=== PATIENT | female | born 1955 | race Caucasian/White ===

== ENCOUNTER 2016-06-30 09:57 | Inpatient (IN) | payer BC ==
--- NOTE | 2016-06-30 10:15 | PDOC ---
History of Present Illness - General Chief Complaint: Weakness Stated Complaint: BLE LEG NUMBNESS Time Seen by Provider: 06/30/16 10:15 History Source: Patient Exam Limitations: No Limitations - History of Present Illness Initial Comments: 61 yo F history COPD, HTN, HL, restless leg syndrome presents with weak and numb legs for past 2 weeks. Her symptoms initially started in her lower legs, then ascended. She is now unable to feel her legs, using a cane or wheelchair to get around. 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 No recent headaches, cp, SOB, fever. She has had a recent sore throat. No difficulty breathing or swallowing. Past History - Past Medical History Allergies/Adverse Reactions: Allergies Allergy/AdvReac Type Severity Reaction Status Date / Time ketorolac tromethamine AdvReac Severe Vomiting Verified 06/30/16 09:59 [From Toradol] lurasidone HCl [From Latuda] AdvReac Severe DEPRESSIVE Verified 06/30/16 09:59 oxycodone HCl [From Percocet] AdvReac Severe Vomiting Verified 06/30/16 09:59 propoxyphene napsylate AdvReac Severe Vomiting Verified 06/30/16 09:59 [From Darvocet-N] (severe) Home Medications: Ambulatory Orders Clonazepam [Klonopin] 1 mg PO HS 05/14/16 Lamotrigine 25 mg PO HS 05/14/16 Lamotrigine [Lamictal Xr] 200 mg PO HS 05/14/16 Losartan Potassium 50 mg PO HS 05/14/16 Rosuvastatin Calcium [Crestor] 5 mg PO HS 05/14/16 Albuterol Sulfate [Proair Respiclick] 90 mcg IH DAILY 06/30/16 Pramipexole Di-HCl [Mirapex] 0.25 mg PO HS 06/30/16 Quetiapine Fumarate [Seroquel -] 50 mg PO HS 06/30/16 Anemia: No Asthma: Yes Cancer: No Cardiac Disorders: No CVA: No COPD: No CHF: No Dementia: No Diabetes: No GI Disorders: No Disorders: No HTN: Yes Hypercholesterolemia: Yes Liver Disease: No Psychiatric Problems: Yes Suicide Attempt (Hx): No Seizures: No Thyroid Disease: No - Surgical History Abdominal Surgery: Yes (Repair of Adhesions) Appendectomy: No Cardiac Surgery: No Cholecystectomy: Yes (LAPAROSCOPIC CHOLECYSTECTOMY) Lung Surgery: No Neurologic Surgery: No Orthopedic Surgery: Yes (RIGHT KNEE ARTHROSCOPIC SURGERY) - Immunization History Td Vaccination: Yes Immunization Up to Date: No - Psycho/Social/Smoking Cessation Hx Anxiety: Yes Suicidal Ideation: No Smoking Status: No Smoking History: Never smoked Have you smoked in the past 12 months: No Number of Cigarettes Smoked Daily: 0 Hx Alcohol Use: No Drug/Substance Use Hx: No Substance Use Type: None Hx Substance Use Treatment: No Review of Systems - Review of Systems Able to Perform ROS?: Yes Comments:: GENERAL/CONSTITUTIONAL: No fever or chills. No weakness. HEAD, EYES, EARS, NOSE AND THROAT: No change in vision. No ear pain or discharge. +Sore throat. CARDIOVASCULAR: No chest pain or shortness of breath. RESPIRATORY: No cough, wheezing, or hemoptysis. GASTROINTESTINAL: No nausea, vomiting, diarrhea or constipation. GENITOURINARY: No dysuria, frequency, or change in urination. MUSCULOSKELETAL: No joint or muscle swelling or pain. No neck or back pain. SKIN: No rash NEUROLOGIC: No headache, vertigo, loss of consciousness. +Loss of strength/ sensation. ENDOCRINE: No increased thirst. No abnormal weight change. HEMATOLOGIC/LYMPHATIC: No anemia, easy bleeding, or history of blood clots. ALLERGIC/IMMUNOLOGIC: No hives or skin allergy. *Physical Exam - Physical Exam Comments: GENERAL: Awake, alert, and fully oriented. Appears anxious. HEAD: No signs of trauma EYES: PERRLA, EOMI, sclera anicteric, conjunctiva clear ENT: Auricles normal inspection, hearing grossly normal, nares patent, oropharynx clear without exudates. Moist mucosa NECK: Normal ROM, supple, no lymphadenopathy, JVD, or masses LUNGS: Breath sounds equal, clear to auscultation bilaterally. No wheezes, and no crackles HEART: Regular rate and rhythm, normal S1 and S2, no murmurs, rubs or gallops ABDOMEN: Soft, nontender, normoactive bowel sounds. No guarding, no rebound. No masses EXTREMITIES: Normal range of motion, no edema. No clubbing or cyanosis. No cords, erythema, or tenderness NEUROLOGICAL: Cranial nerves II through XII grossly intact. Normal speech. Gait is off-balance, clumsy (patient states she is unable to feel her legs). + Sensation absent to entire legs and abdomen, but present to lower chest and above. 3/5 strength to BLE. SKIN: Warm, Dry, normal turgor, no rashes or lesions noted. Procedures - Lumbar Puncture Indication: other CT Scan: Yes Betadine Prep: Yes Position: Sitting Site: L4-L51 Local Anesthesia: 1% Lidocaine with epi Volume(ml): 4 Lumbar Puncture Kit: Adult Needle Size(gauge): 20 Complications: Dry Tap Progress: 06/30/16 13:54 Unable to obtain CSF. Patient with very large body habitus, difficult anatomy. Heart Score/ECG Review - ECG Impressions Comment:: EKG read 16:27- NSR 79 bpm, Q waves III, aVF Medical Decision Making - Medical Decision Making 06/30/16 11:19 D/w Dr. Denise, orthotic practitioner for neurology. To have GBS a second time would be very unusual. However, recommended LP. I am awaiting CTH first, then will obtain LP. 06/30/16 14:18 Patient initially requesting transfer to [facility]. However, when I discussed with them, they stated that their hospital would likely not be the best option- they do not have an appropriate ICU for this transfer, and neuro is not in house. I discussed with patient again, and at this point she agrees to transfer to [facility]. As per Dr. Denise, discussed LP under fluoro with hospitalist. I have ordered the MRIs, also as discussed. 06/30/16 15:03 D/w hospitalist, will place on non-cardiac tele. Patient has had the symptoms for 2 weeks, slowly progressing. No airway involvement at this time. Will place on continuous pulse ox, but does not require ICU at this point. *DC/Admit/Observation/Transfer Diagnosis at time of Disposition: Weakness, Numbness - Discharge Dispostion Condition at time of disposition: Stable Admit: Yes
[2016-06-30] MEDS ORDERED: diazePAM CARPU-JECT 10 MG/2 ML DISP.SYRIN IVPUSH ONE ×2 (12:20→13:02)
[2016-06-30] MEDS ORDERED: diazePAM CARPU-JECT 10 MG/2 ML DISP.SYRIN ONE ×2 (12:28→13:13)
[2016-06-30] MEDS ORDERED: LIDOCAINE HCL 1%, 10 MG/ML (20ML VIAL) ONE (13:40)
[2016-06-30] MEDS ORDERED: LORAZEPAM CARPU-JECT 2 MG/ML DISP.SYRIN ONE (13:48)
--- NOTE | 2016-06-30 16:27 | CONSULT ---
Consult - text type - Consultation Consultation Note: Neurology History of Present Illness - General Chief Complaint: Weakness Stated Complaint: BLE LEG NUMBNESS Time Seen by Provider: 06/30/16 10:15 History Source: Patient Exam Limitations: No Limitations - History of Present Illness Initial Comments: 61 yo F history COPD, HTN, HL, restless leg syndrome presents with weak and numb legs for past 2 weeks. Her symptoms initially started in her lower legs, then ascended. She is now unable to feel her legs, using a cane or wheelchair to get around. 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 No recent headaches, cp, SOB, fever. She has had a recent sore throat. She is a patient of Dr. Olson who recommended further evaluation. No difficulty breathing or swallowing. She was seen by me in ER at [facility]. LP had been attempted and unsuccessful and patient did not want to repeat today. We discussed transfer to [place] for fluroscopic guided LP and the patient was initally not in agreement but eventually agreed to transfer. Past History - Past Medical History Allergies/Adverse Reactions: Allergies Allergy/AdvReac Type Severity Reaction Status Date / Time ketorolac tromethamine AdvReac Severe Vomiting Verified 06/30/16 09:59 [From Toradol] lurasidone HCl [From Latuda] AdvReac Severe DEPRESSIVE Verified 06/30/16 09:59 oxycodone HCl [From Percocet] AdvReac Severe Vomiting Verified 06/30/16 09:59 propoxyphene napsylate AdvReac Severe Vomiting Verified 06/30/16 09:59 [From Darvocet-N] (severe) Home Medications: Ambulatory Orders Clonazepam [Klonopin] 1 mg PO HS 05/14/16 Lamotrigine 25 mg PO HS 05/14/16 Lamotrigine [Lamictal Xr] 200 mg PO HS 05/14/16 Losartan Potassium 50 mg PO HS 05/14/16 Rosuvastatin Calcium [Crestor] 5 mg PO HS 05/14/16 Albuterol Sulfate [Proair Respiclick] 90 mcg IH DAILY 06/30/16 Pramipexole Di-HCl [Mirapex] 0.25 mg PO HS 06/30/16 Quetiapine Fumarate [Seroquel -] 50 mg PO HS 06/30/16 Anemia: No Asthma: Yes Cancer: No Cardiac Disorders: No CVA: No COPD: No CHF: No Dementia: No Diabetes: No GI Disorders: No Disorders: No HTN: Yes Hypercholesterolemia: Yes Liver Disease: No Psychiatric Problems: Yes Suicide Attempt (Hx): No Seizures: No Thyroid Disease: No - Surgical History Abdominal Surgery: Yes (Repair of Adhesions) Appendectomy: No Cardiac Surgery: No Cholecystectomy: Yes (LAPAROSCOPIC CHOLECYSTECTOMY) Lung Surgery: No Neurologic Surgery: No Orthopedic Surgery: Yes (RIGHT KNEE ARTHROSCOPIC SURGERY) - Immunization History Td Vaccination: Yes Immunization Up to Date: No - Psycho/Social/Smoking Cessation Hx Anxiety: Yes Suicidal Ideation: No Smoking Status: No Smoking History: Never smoked Have you smoked in the past 12 months: No Number of Cigarettes Smoked Daily: 0 Hx Alcohol Use: No Drug/Substance Use Hx: No Substance Use Type: None Hx Substance Use Treatment: No Review of Systems - Review of Systems Able to Perform ROS?: Yes Comments:: GENERAL/CONSTITUTIONAL: No fever or chills. No weakness. HEAD, EYES, EARS, NOSE AND THROAT: No change in vision. No ear pain or discharge. +Sore throat. CARDIOVASCULAR: No chest pain or shortness of breath. RESPIRATORY: No cough, wheezing, or hemoptysis. GASTROINTESTINAL: No nausea, vomiting, diarrhea or constipation. GENITOURINARY: No dysuria, frequency, or change in urination. MUSCULOSKELETAL: No joint or muscle swelling or pain. No neck or back pain. SKIN: No rash NEUROLOGIC: No headache, vertigo, loss of consciousness. +Loss of strength/ sensation. ENDOCRINE: No increased thirst. No abnormal weight change. HEMATOLOGIC/LYMPHATIC: No anemia, easy bleeding, or history of blood clots. ALLERGIC/IMMUNOLOGIC: No hives or skin allergy. *Physical Exam Vital Signs Temperature 98 F 06/30/16 09:58 Pulse Rate 66 06/30/16 14:54 Respiratory Rate 16 06/30/16 14:54 Blood Pressure 134/73 06/30/16 14:54 O2 Sat by Pulse Oximetry (%) 100 06/30/16 14:54 GENERAL: Awake, alert, and fully oriented. Appears anxious. HEAD: No signs of trauma EYES: PERRLA, EOMI, sclera anicteric, conjunctiva clear ENT: Auricles normal inspection, hearing grossly normal, nares patent, oropharynx clear without exudates. Moist mucosa NECK: Normal ROM, supple, no lymphadenopathy, JVD, or masses LUNGS: Breath sounds equal, clear to auscultation bilaterally. No wheezes, and no crackles HEART: Regular rate and rhythm, normal S1 and S2, no murmurs, rubs or gallops ABDOMEN: Soft, nontender, normoactive bowel sounds. No guarding, no rebound. No masses EXTREMITIES: Normal range of motion, no edema. No clubbing or cyanosis. No cords, erythema, or tenderness NEUROLOGICAL: Cranial nerves II through XII grossly intact. Normal speech. Gait is off-balance, clumsy (patient states she is unable to feel her legs). + Sensation absent to entire legs and abdomen, but present to lower chest and above. 3/5 strength to BLE. SKIN: Warm, Dry, normal turgor, no rashes or lesions noted. Imaging: CT head without acute changes Plan: 61 yo F history COPD, HTN, HL, restless leg syndrome presents with weak and numb legs for past 2 weeks. Her symptoms initially started in her lower legs, then ascended. She is now unable to feel her legs, using a cane or wheelchair to get around. 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 Also with psych history will rule out organic causes. LP had been attempted by ER and unsuccessful Transfer to [place] for fluroscopic guided LP Monitor bp, goal < 140/90 Recommend MRI brain and L spine Continue Klonipin for anxiety Pt/OT as tolerated Fall precautions
[2016-06-30] MEDS ORDERED: ALBUTEROL SO4 6.7 GM HFA INHALER IH PRN (21:55)
[2016-06-30] MEDS ORDERED: QUEtiapine FUMARATE 50 MG TABLET PO SCH (22:00)
[2016-06-30] MEDS ORDERED: PRAMIPEXOLE DIHYDROCHLORIDE 0.25 MG TABLET PO SCH (22:00)
[2016-06-30] MEDS ORDERED: ROSUVASTATIN CA 5 MG TABLET (FP) PO SCH (22:00)
[2016-06-30] MEDS ORDERED: lamoTRIgine 25 MG TABLET PO SCH (22:00)
[2016-06-30] MEDS ORDERED: LOSARTAN POTASSIUM 50 MG TABLET (FP) PO SCH (22:00)
[2016-06-30] MEDS ORDERED: PATIENT'S OWN MEDICATION (NON-FORMULARY) (Lamotrigine [Lamictal Xr] 200 MG) PO SCH (22:00)
--- NOTE | 2016-06-30 22:03 | HP ---
CHIEF COMPLAINT: leg weakness/numbness PCP: Wesley HISTORY OF PRESENT ILLNESS: This is a 61 year old female with a past medical history of HTN, HLD, diastolic dysfunction, RLS, asthma, Guillain Brigantine syndrome, bipolar disorder, anxiety who presented to her PCP for bilateral leg weakness and numbness for the past 2 weeks. Her PCP then referred her to the ED for further evaluation. She states the weakness initially started in her distal legs and then ascended. She is concerned for recurrence of Guillain Brigantine. The weakness is worse in the morning upon arising and then improves slightly during the day. She also reports a sore throat in the morning that resolves during the day. Pt denies any other symptoms or complaints. ER course was notable for: (1) CT head unremarkable (2) Unable to obtain LP Recent Travel: pt denies PAST MEDICAL HISTORY: HTN HLD diastolic dysfunction RLS asthma Guillain Brigantine syndrome bipolar disorder anxiety umbilical hernia PAST SURGICAL HISTORY: surgical adhesion repair lap cholecystectomy R knee arthroscopy hysterectomy L cataract sx x 3 Social History: Smoking: pt denies Alcohol: pt denies Drugs: pt denies Family History: mother age 70, brain tumor, PMH HTN, DM2, angina father age 72, [place] sister age 49, BrCA daughter , MVC Allergies ketorolac tromethamine [From Toradol] Adverse Reaction (Severe, Verified 09:59) Vomiting lurasidone HCl [From Latuda] Adverse Reaction (Severe, Verified 06/30/16 09:59) DEPRESSIVE oxycodone HCl [From Percocet] Adverse Reaction (Severe, Verified 06/30/16 09:59) Vomiting propoxyphene napsylate [From Darvocet-N] Adverse Reaction (Severe, Verified 09:59) Vomiting (severe) HOME MEDICATIONS: 3 Medication Instructions Recorded Clonazepam [Klonopin] 1 mg PO HS 05/14/16 Lamotrigine 25 mg PO HS 05/14/16 Lamotrigine [Lamictal Xr] 200 mg PO HS 05/14/16 Losartan Potassium 50 mg PO HS 05/14/16 Rosuvastatin Calcium [Crestor] 5 mg PO HS 05/14/16 Albuterol Sulfate [Proair 90 mcg IH DAILY 06/30/16 Respiclick] Pramipexole Di-HCl [Mirapex] 0.25 mg PO HS 06/30/16 Quetiapine Fumarate [Seroquel -] 50 mg PO HS 06/30/16 REVIEW OF SYSTEMS CONSTITUTIONAL: Absent: fever, chills, diaphoresis, generalized weakness, malaise, loss of appetite, weight change HEENT: Absent: rhinorrhea, nasal congestion, throat pain, throat swelling, difficulty swallowing, mouth swelling, ear pain, eye pain, visual changes CARDIOVASCULAR: Absent: chest pain, syncope, palpitations, irregular heart rate, lightheadedness , peripheral edema RESPIRATORY: Absent: cough, shortness of breath, dyspnea with exertion, orthopnea, wheezing, stridor, hemoptysis GASTROINTESTINAL: Absent: abdominal pain, abdominal distension, nausea, vomiting, diarrhea, constipation, melena, hematochezia GENITOURINARY: Absent: dysuria, frequency, urgency, hesitancy, hematuria, flank pain, genital pain MUSCULOSKELETAL: Absent: myalgia, arthralgia, joint swelling, back pain, neck pain SKIN: Absent: rash, itching, pallor HEMATOLOGIC/IMMUNOLOGIC: Absent: easy bleeding, easy bruising, lymphadenopathy, frequent infections ENDOCRINE: Absent: unexplained weight gain, unexplained weight loss, heat intolerance, cold intolerance NEUROLOGIC: Present: focal weakness or paresthesias Absent: headache, dizziness, unsteady gait, seizure, mental status changes, bladder or bowel incontinence PSYCHIATRIC: Absent: anxiety, depression, suicidal or homicidal ideation, hallucinations. PHYSICAL EXAMINATION Vital Signs - 24 hr 3 06/30/16 06/30/16 06/30/16 09:58 13:50 14:18 Temperature 98 F Pulse Rate 75 Pulse Rate [ 87 78 Right] Respiratory 16 16 16 Rate Blood Pressure 156/84 Blood Pressure 124/70 88/74 [Left Arm] O2 Sat by Pulse 99 100 99 Oximetry (%) 3 06/30/16 06/30/16 06/30/16 14:54 16:10 19:31 Temperature Pulse Rate Pulse Rate [ 66 72 76 Right] Respiratory 16 16 16 Rate Blood Pressure Blood Pressure 134/73 139/77 151/80 [Left Arm] O2 Sat by Pulse 100 100 97 Oximetry (%) 3 06/30/16 19:55 Temperature 98.2 F Pulse Rate 74 Pulse Rate [ Right] Respiratory 14 Rate Blood Pressure 151/80 Blood Pressure [Left Arm] O2 Sat by Pulse Oximetry (%) GENERAL: Awake, alert, and fully oriented, in no acute distress. HEAD: Normal with no signs of trauma. EYES: Pupils equal, round and reactive to light, extraocular movements intact, sclera anicteric, conjunctiva clear. No lid lag. normal posterior pharynx lift. EARS, NOSE, THROAT: Ears normal, nares patent, oropharynx clear without exudates. Moist mucous membranes. NECK: Normal range of motion, supple without lymphadenopathy, JVD, or masses. LUNGS: Breath sounds equal, clear to auscultation bilaterally. No wheezes, and no crackles. No accessory muscle use. HEART: Regular rate and rhythm, normal S1 and S2 without murmur, rub or gallop. ABDOMEN: Soft, nontender, not distended, normoactive bowel sounds, no guarding, no rebound, no masses. No hepatomegaly or splenomegaly. MUSCULOSKELETAL: Normal range of motion at all joints. No bony deformities or tenderness. No CVA tenderness. UPPER EXTREMITIES: 2+ pulses, warm, well-perfused. No cyanosis. No clubbing. Cap refill <2 seconds. No peripheral edema. 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 No calf tenderness. No peripheral edema. absent light touch sensation from toes to lower third of thighs. muscle strength: dorsiflexion 4/5, plantar flexion 2/5, leg raise 3/5 NEUROLOGICAL: Cranial nerves II-XII intact. Normal speech. Normal gait. PSYCHIATRIC: Cooperative. Good eye contact. Appropriate mood and affect. SKIN: Warm, dry, normal turgor, no rashes or lesions noted. Laboratory Results reviewed CT head: Impression: No significant interval change or acute intracranial pathology is identified. ASSESSMENT/PLAN: 61yF with a past medical history of HTN, HLD, diastolic dysfunction, RLS, asthma , Guillain Brigantine syndrome, bipolar disorder, anxiety who presented to the ED with bilateral lower extremity weakness and numbness. She is being admitted for further evaluation. Bilateral leg numbness/weakness - unable to obtain LP in ED. To be done tomorrow under fluoro - MRI head, thoracic and lumbar spine done, results pending - neurology consult appreciated HTN - BP slightly elevated. Give home medications, if persistently elevated, increase losartan to 100mg HLD - cont home meds RLS - cont home meds Bipolar disorder/anxietly - cont home meds DVT PPX - moderate risk given limited mobility, start heparin 5000u SC TID FEN - tolerating po fluids - lytes in am - low sodium diet Dispo: Pt currently requires inpatient care. Visit type - Emergency Visit Emergency Visit: Yes ED Registration Date: 06/30/16 Care time: The patient presented to the Emergency Department on the above date and was hospitalized for further evaluation of their emergent condition. - New Patient This patient is new to me today: Yes Date on this admission: 06/30/16 - Critical Care Critical Care patient: No
[2016-06-30] MEDS ORDERED: clonazePAM 0.5 MG TABLET PO SCH (22:15)
[2016-06-30] MEDS ORDERED: PT OWN MED DRAWER 7, Y5N ONE (22:46)
[2016-07-01 00:43] VITALS: BMI 37.4
[2016-07-01] MEDS: HEPARIN NA (PORCINE) 5,000 UNITS/ML 1ML VIAL SQ SCH ×2 (05:37→17:07)
[2016-07-01 07:17] LABS: BASOPHIL 0.6 % (0-2.0); EOSINOPHIL 3.6 % (0-4.5); MCH 28.4 pg (25.7-33.7); MCHC 33.4 g/dl (32.0-36.0); MEAN CELL VOLUME 84.9 fl (80-96); NEUTROPHILS 66.6 % (42.8-82.8); PLATELET COUNT 243 K/MM3 (134-434); RDW 14.2 % (11.6-15.6); WHITE BLOOD COUNT 9.5 K/mm3 (4.0-10.0)
[2016-07-01 07:52] LABS: ALBUMIN 3.6 g/dl (3.4-5.0); ALK PHOS 136 U/L (45-117); ANION GAP 11 (8-16); BILIRUBIN,TOTAL 0.4 mg/dL (0.2-1.0); CALCIUM 8.6 mg/dL (8.5-10.1); CO2 26 mmol/L (21-32); CREATININE 0.7 mg/dL (0.55-1.02); GLUCOSE,RANDOM 108 mg/dL (74-106); MAGNESIUM 2.2 mg/dL (1.8-2.4); PHOSPHOROUS 4.2 mg/dL (2.5-4.9); SGOT/AST 13 U/L (15-37); SGPT/ALT 22 U/L (12-78); TOT PROT 6.6 g/dl (6.4-8.2)
--- NOTE | 2016-07-01 09:24 | PN ---
Teaching Attending Note Name of Resident: Nova Johnson ATTENDING PHYSICIAN STATEMENT I saw and evaluated the patient. I reviewed the resident's note and discussed the case with the resident. I agree with the resident's findings and plan as documented. SUBJECTIVE: Comfortable with no acute distress, no shortness breath, no nausea or vomiting, no fever or chills. OBJECTIVE: Vital Signs Temperature 97.8 F 07/01/16 06:00 Pulse Rate 82 07/01/16 06:00 Respiratory Rate 18 07/01/16 06:00 Blood Pressure 126/64 07/01/16 06:00 O2 Sat by Pulse Oximetry (%) 97 06/30/16 21:20 GENERAL: The patient is awake, alert, and fully oriented, in no acute distress. HEAD: Normal with no signs of trauma. EYES: extraocular movements intact, sclera anicteric, conjunctiva clear. ENT: oropharynx clear without exudates, moist mucous membranes. NECK: Trachea midline, supple. LUNGS: Breath sounds equal, clear to auscultation bilaterally, no wheezes, no crackles, no accessory muscle use. HEART: Regular rate and rhythm, S1, S2 without murmur, rub or gallop. ABDOMEN: Obese, soft, nontender, nondistended, normoactive bowel sounds, no guarding, no rebound, no masses. EXTREMITIES: 2+ pulses, warm, no edema. NEUROLOGICAL: Cranial nerves II through XII grossly intact. Normal speech, face symmetric, no tongue deviation. Motor; UE:5/5, LE: decreased Sensation to light touch below the knee B/L. PSYCH: Normal mood, normal affect. SKIN: Warm, dry, normal turgor, no rashes. CBCD WBC 9.5 K/mm3 (4.0-10.0) 07/01/16 05:35 RBC 4.68 M/mm3 (3.60-5.2) 07/01/16 05:35 Hgb 13.3 GM/dL (10.7-15.3) 07/01/16 05:35 Hct 39.7 % (32.4-45.2) 07/01/16 05:35 MCV 84.9 fl (80-96) 07/01/16 05:35 MCHC 33.4 g/dl (32.0-36.0) 07/01/16 05:35 RDW 14.2 % (11.6-15.6) 07/01/16 05:35 Plt Count 243 K/MM3 (134-434) 07/01/16 05:35 MPV 8.0 fl (7.5-11.1) 07/01/16 05:35 CMP Sodium 142 mmol/L (136-145) 07/01/16 05:35 Potassium 4.2 mmol/L (3.5-5.1) 07/01/16 05:35 Chloride 105 mmol/L (98-107) 07/01/16 05:35 Carbon Dioxide 26 mmol/L (21-32) 07/01/16 05:35 Anion Gap 11 (8-16) 07/01/16 05:35 BUN 14 mg/dL (7-18) 07/01/16 05:35 Creatinine 0.7 mg/dL (0.55-1.02) 07/01/16 05:35 Creat Clearance w eGFR > 60 (>60) 07/01/16 05:35 Random Glucose 108 mg/dL (74-106) H 07/01/16 05:35 Calcium 8.6 mg/dL (8.5-10.1) 07/01/16 05:35 Total Bilirubin 0.4 mg/dL (0.2-1.0) 07/01/16 05:35 AST 13 U/L (15-37) L 07/01/16 05:35 ALT 22 U/L (12-78) 07/01/16 05:35 Alkaline Phosphatase 136 U/L (45-117) H 07/01/16 05:35 Total Protein 6.6 g/dl (6.4-8.2) 07/01/16 05:35 Albumin 3.6 g/dl (3.4-5.0) 07/01/16 05:35 Current Medications Generic Name Dose Route Start Last Admin Trade Name Freq PRN Reason Stop Dose Admin Albuterol Sulfate 2 puff 06/30/16 21:55 Ventolin Hfa Inhaler - IH Q6H PRN SHORT OF BREATH/WHEEZING Clonazepam 1 mg 06/30/16 22:15 06/30/16 22:48 Klonopin - PO Not Given HS OTONIEL Heparin Sodium (Porcine) 5,000 unit 07/01/16 06:00 07/01/16 05:37 Heparin - SQ 5,000 unit TID OTONIEL Administration Lamotrigine 25 mg 06/30/16 22:00 06/30/16 22:47 Lamictal - PO Not Given HS OTONIEL Losartan Potassium 50 mg 06/30/16 22:00 06/30/16 22:47 Cozaar - PO Not Given HS [facility] Non-Formulary Medication 200 mg 06/30/16 22:00 Lamotrigine [Lamictal Xr] PO HS OTONIEL Pramipexole Dihydrochloride 0.25 mg 06/30/16 22:00 06/30/16 22:47 Mirapex - PO Not Given HS [facility] Quetiapine Fumarate 50 mg 06/30/16 22:00 06/30/16 22:47 Seroquel - PO Not Given HS OTONIEL Rosuvastatin Calcium 5 mg 06/30/16 22:00 06/30/16 22:47 Crestor - PO Not Given HS [facility] Home Medications Medication Instructions Recorded Clonazepam [Klonopin] 1 mg PO HS 05/14/16 Lamotrigine 25 mg PO HS 05/14/16 Lamotrigine [Lamictal Xr] 200 mg PO HS 05/14/16 Losartan Potassium 50 mg PO HS 05/14/16 Rosuvastatin Calcium [Crestor] 5 mg PO HS 05/14/16 Albuterol Sulfate [Proair 90 mcg IH DAILY 06/30/16 Respiclick] Pramipexole Di-HCl [Mirapex] 0.25 mg PO HS 06/30/16 Quetiapine Fumarate [Seroquel -] 50 mg PO HS 06/30/16 CT head without acute changes ASSESSMENT AND PLAN: 61 yo F history COPD, HTN, HL, with Hx of Guillain-Ross in the past, restless leg syndrome presents with weak and numb legs for past 2 weeks. # Bilateral leg numbness/weakness s/p physical therapist ,patient needs a walker , No need for LP as per since the patient is ambulatory this morning and much improved. MRI head, thoracic and lumbar spine done, results negative , as per neurologist patient can go home. Patient refusing a walker but will give an Rx for a walker. doubt exacerbation of Guillain-Ross # Possibly conversion disorder # HTN improved continue home meds. goal < 140/90 # HLD cont home meds # RLS cont home meds # Bipolar disorder/anxietly cont home meds Continue Klonipin for anxiety discharge patient home
--- NOTE | 2016-07-01 09:43 | PN ---
Progress Note (short form) - Note Progress Note: Neurology History of Present Illness 61 yo F history COPD, HTN, HL, restless leg syndrome presents with weak and numb legs for past 2 weeks. Her symptoms initially started in her lower legs, then ascended. She is now unable to feel her legs, using a cane or wheelchair to get around. 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 No recent headaches, cp, SOB, fever. She has had a recent sore throat. She is a patient of Dr. Olson who recommended further evaluation. No difficulty breathing or swallowing. She was seen by me in ER at [facility]. LP had been attempted and unsuccessful. She was transfer to [place] for fluroscopic guided LP and the patient was initally not in agreement but eventually agreed to transfer. THIS MORNING, patient seen ambulated and closing window shades and without significant lower extremity weakness. She was bearing weight and did not fall or have slowness in movement. I do not believe this is a case of Guillan [place] and more likely some spinal nerve irritation, therefore MRI would be more useful and LP would not be indicated at this time. Will discontinue. Was suprised to see patient ambulated near window. Active Medications Generic Name Dose Route Start Last Admin Trade Name Freq PRN Reason Stop Dose Admin Albuterol Sulfate 2 puff 06/30/16 21:55 Ventolin Hfa Inhaler - IH Q6H PRN SHORT OF BREATH/WHEEZING Clonazepam 1 mg 06/30/16 22:15 06/30/16 22:48 Klonopin - PO Not Given HS OTONIEL Heparin Sodium (Porcine) 5,000 unit 07/01/16 06:00 07/01/16 05:37 Heparin - SQ 5,000 unit TID OTONIEL Administration Lamotrigine 25 mg 06/30/16 22:00 06/30/16 22:47 Lamictal - PO Not Given HS OTONIEL Losartan Potassium 50 mg 06/30/16 22:00 06/30/16 22:47 Cozaar - PO Not Given HS OTONIEL Non-Formulary Medication 200 mg 06/30/16 22:00 Lamotrigine [Lamictal Xr] PO HS OTONIEL Pramipexole Dihydrochloride 0.25 mg 06/30/16 22:00 06/30/16 22:47 Mirapex - PO Not Given HS OTONIEL Quetiapine Fumarate 50 mg 06/30/16 22:00 06/30/16 22:47 Seroquel - PO Not Given HS OTONIEL Rosuvastatin Calcium 5 mg 06/30/16 22:00 06/30/16 22:47 Crestor - PO Not Given HS OTONIEL *Physical Exam Vital Signs Vital Signs Temperature 97.8 F 07/01/16 06:00 Pulse Rate 82 07/01/16 06:00 Respiratory Rate 18 07/01/16 06:00 Blood Pressure 126/64 07/01/16 06:00 O2 Sat by Pulse Oximetry (%) 97 06/30/16 21:20 GENERAL: Awake, alert, and fully oriented. Appears anxious. HEAD: No signs of trauma EYES: PERRLA, EOMI, sclera anicteric, conjunctiva clear ENT: Auricles normal inspection, hearing grossly normal, nares patent, oropharynx clear without exudates. Moist mucosa NECK: Normal ROM, supple, no lymphadenopathy, JVD, or masses LUNGS: Breath sounds equal, clear to auscultation bilaterally. No wheezes, and no crackles HEART: Regular rate and rhythm, normal S1 and S2, no murmurs, rubs or gallops ABDOMEN: Soft, nontender, normoactive bowel sounds. No guarding, no rebound. No masses EXTREMITIES: Normal range of motion, no edema. No clubbing or cyanosis. No cords, erythema, or tenderness NEUROLOGICAL: Cranial nerves II through XII grossly intact. Normal speech. Gait is antalgic, slightly clumsy but bearing wieght 4/5 strength to BLE. SKIN: Warm, Dry, normal turgor, no rashes or lesions noted. Imaging: CT head without acute changes Plan: 61 yo F history COPD, HTN, HL, restless leg syndrome presents with weak and numb legs for past 2 weeks. 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 Patient ambulatory this morning and much improved, closing blinds of the window and bearing weight without difficulty LP not indicated as patient without significant weakness Monitor bp, goal < 140/90 Recommend MRI brain and L spine still Continue Klonipin for anxiety Pt/OT as tolerated Fall precautions Possibly conversion disorder
[2016-07-01 09:59] LABS: INR 1.06 (0.82-1.09); PROTHROMBIN TIME (PATIENT) 11.7 SEC (9.98-11.88)
--- NOTE | 2016-07-01 12:11 | EKG ---
Test Reason : Blood Pressure : / mmHG Vent. Rate : 079 BPM Atrial Rate : 079 BPM P-R Int : 178 ms QRS Dur : 094 ms QT Int : 364 ms P-R-T Axes : 059 004 082 degrees QTc Int : 417 ms NORMAL SINUS RHYTHM INFERIOR INFARCT , AGE UNDETERMINED NONSPECIFIC ST AND T WAVE ABNORMALITY ABNORMAL ECG WHEN COMPARED WITH ECG OF 02-NOV-2002 15:26, NONSPECIFIC ST AND T WAVE ABNORMALITY are now present Confirmed by LEON QUINTERO MD ([id number]) on 07/01/2016 12:11:05 PM Referred By: MD PANIAGUA Confirmed By:LEON QUINTERO MD
[2016-07-01 15:55] VITALS: BP 132/82; PULSE 89; TEMP 98.5
--- NOTE | 2016-07-01 15:59 | DS ---
Physical Exam: SUBJECTIVE: Patient seen and examined. She is complaining of weakness and numbness in lower extremities. She denies headache, vision problems, balance problems, chest pain, SOB, fever. OBJECTIVE: Vital Signs Period Temp Pulse Resp BP Sys/Jasso Pulse Ox Last 24 Hr 97.5 F-98.5 F 75-89 18-18 121-152/58-102 97-97 PHYSICAL EXAM GENERAL: The patient is awake, alert, and fully oriented, in no acute distress. HEAD: Normal with no signs of trauma. EYES: extraocular movements intact, sclera anicteric, conjunctiva clear. ENT: oropharynx clear without exudates, moist mucous membranes. NECK: Trachea midline, supple. LUNGS: Breath sounds equal, clear to auscultation bilaterally, no wheezes, no crackles, no accessory muscle use. HEART: Regular rate and rhythm, S1, S2 without murmur, rub or gallop. ABDOMEN: Obese, soft, nontender, nondistended, normoactive bowel sounds, no guarding, no rebound, no masses. EXTREMITIES: 2+ pulses, warm, no edema. NEUROLOGICAL: Cranial nerves II through XII grossly intact. Normal speech, face symmetric, no tongue deviation. Motor; UE:5/5, LE: 4/5 Sensation to light touch not present below the knee B/L. DTRs knee intact. PSYCH: Normal mood, normal affect. SKIN: Warm, dry, normal turgor, no rashes. LABS Laboratory Results - last 24 hr 07/01/16 07/01/16 07/01/16 05:35 05:35 09:25 WBC 9.5 RBC 4.68 Hgb 13.3 Hct 39.7 MCV 84.9 MCHC 33.4 RDW 14.2 Plt Count 243 MPV 8.0 Neutrophils % 66.6 Lymphocytes % 22.8 D Monocytes % 6.4 Eosinophils % 3.6 Basophils % 0.6 INR 1.06 Sodium 142 Potassium 4.2 Chloride 105 Carbon Dioxide 26 Anion Gap 11 BUN 14 Creatinine 0.7 Creat Clearance w eGFR > 60 Random Glucose 108 H Calcium 8.6 Phosphorus 4.2 Magnesium 2.2 Total Bilirubin 0.4 AST 13 L ALT 22 Alkaline Phosphatase 136 H Total Protein 6.6 Albumin 3.6 HOSPITAL COURSE: Date of Admission:06/30/16 Date of Discharge: 07/01/16 Minutes to complete discharge: 50 Discharge Summary Reason For Visit: WEAKNESS Current Active Problems Numbness (Acute) Weakness (Acute) Hospital Course: This is a 61 year old female with a past medical history of HTN, HLD, diastolic dysfunction, RLS, asthma, Guillain [place] syndrome, bipolar disorder, anxiety who presented to her PCP for bilateral leg weakness and numbness for the past 2- 3 weeks. Her PCP then referred her to the ED for further evaluation. She states the weakness initially started in her distal legs and then ascended. She is concerned for recurrence of Guillain [place]. The weakness is worse in the morning upon arising and then improves slightly during the day. She also reports a sore throat in the morning that resolves during the day. Pt denies any other symptoms or complaints. Hospital course: She was seen ER at [place]. LP had been attempted and unsuccessful. She was transfer to [place] for fluroscopic guided LP and the patient was initally not in agreement but eventually agreed to transfer. Consulted Neurologist. He assessed the pt is the hospital again and didn't recommend LP. MRI brain without contrast showed no acute changes. MRI T spine was normal. MRI L spine with spinal stenosis of L5/S1 likely etiology for patient's gait dysfunction. He recommended outpatient therapy, fall precautions;walker prescription given. Condition: Stable - Instructions Diet, Activity, Other Instructions: Please see your primary care physician and Neurologist in a week. If you have weakness, numbness, dizziness, lightheadedness, chest pain come to emergency room as soon as possible. Referrals: Aj Olson MD [Staff Physician] - David Denise MD [Staff Physician] - Disposition: HOME - Home Medications Comprehensive Discharge Medication List: Ambulatory Orders Clonazepam [Klonopin] 1 mg PO HS 05/14/16 Lamotrigine 25 mg PO HS 05/14/16 Lamotrigine [Lamictal Xr] 200 mg PO HS 05/14/16 Losartan Potassium 50 mg PO HS 05/14/16 Rosuvastatin Calcium [Crestor] 5 mg PO HS 05/14/16 Albuterol Sulfate [Proair Respiclick] 90 mcg IH DAILY 06/30/16 Pramipexole Di-HCl [Mirapex] 0.25 mg PO HS 06/30/16 Quetiapine Fumarate [Seroquel -] 50 mg PO HS 06/30/16 Problem List - Problems (1) Numbness Code(s): R20.0 - ANESTHESIA OF SKIN (2) Weakness Code(s): R53.1 - WEAKNESS (3) RLS (restless legs syndrome) Code(s): G25.81 - RESTLESS LEGS SYNDROME (4) HTN (hypertension) Code(s): I10 - ESSENTIAL (PRIMARY) HYPERTENSION This patient is new to me today: Yes Date on this admission: 07/01/16 Emergency Visit: Yes ED Registration Date: 06/30/16 Care time: The patient presented to the Emergency Department on the above date and was hospitalized for further evaluation of their emergent condition. Critical Care patient: No - Discharge Referral Referred to [facility] Yes Physician Referral: Aj Olson MD (Int Med)
== END 2016-07-01 17:50 | disposition home or self-care (01) | DRG 552 ==
LOC: FER 09:57 → J4S 21:19
PROVIDERS: ADMIT Internal Medicine; ATTEND Internal Medicine
PROC: 009U3ZX Drainage of Spinal Canal, Percutaneous Approach, Diagnostic (ICD-10-PCS; principal; 2016-06-30)
DX: M48.07 Spinal stenosis, lumbosacral region (principal); G61.0 Guillain-Barre syndrome; F31.89 Other bipolar disorder; J44.9 Chronic obstructive pulmonary disease, unspecified; I10 Essential (primary) hypertension; E78.5 Hyperlipidemia, unspecified; G25.81 Restless legs syndrome; F41.8 Other specified anxiety disorders; J45.909 Unspecified asthma, uncomplicated; K42.9 Umbilical hernia without obstruction or gangrene; R26.89 Other abnormalities of gait and mobility
CPT/HCPCS: 36415; 70450-TC; 70551-TC; 72146-TC; 72148-TC; 80053; 83735; 84100; 85025; 85610; 93005; 97116-GP; 97161-GP; 99285-25; J1644

== ENCOUNTER 2017-02-07 08:09 | Emergency (ER) | payer BC ==
[2017-02-07 08:14] VITALS: BP 156/86; PULSE 83; TEMP 98.5; BMI 35.9
--- NOTE | 2017-02-07 09:04 | PDOC ---
History of Present Illness - General Chief Complaint: Cold Symptoms Stated Complaint: COUGH Time Seen by Provider: 02/07/17 08:23 - History of Present Illness Initial Comments: 02/07/17 09:03 61 F with h/o HTN, asthma, HLD, presenting with 1 week of cough. Pt denies F/C. Denies CP/SOB. States that she has had non-productive cough. Pt has been taking robitussin with no relief. Denies h/o smoking or recent travel. No known sick contacts. Pt states it does not feel like her asthma exacerbations. However, she used her albuterol pump with some relief of her cough. Pt denies leg swelling, denies immobilization. NO h/o DVT/PE. Not on exogenous estrogens. Past History - Past Medical History Allergies/Adverse Reactions: Allergies Allergy/AdvReac Type Severity Reaction Status Date / Time ketorolac tromethamine AdvReac Severe Vomiting Verified 02/07/17 08:10 [From Toradol] lurasidone HCl [From Latuda] AdvReac Severe DEPRESSIVE Verified 02/07/17 08:10 oxycodone HCl [From Percocet] AdvReac Severe Vomiting Verified 02/07/17 08:10 propoxyphene napsylate AdvReac Severe Vomiting Verified 02/07/17 08:10 [From Darvocet-N] (severe) Home Medications: Ambulatory Orders Clonazepam [Klonopin] 3 mg PO HS 05/14/16 Albuterol Sulfate [Proair Respiclick] 90 mcg IH DAILY 06/30/16 Clonidine HCl 0.1 mg PO DAILY tablet 12/10/16 Azithromycin 250 mg PO DAILY #4 tablet 02/07/17 Anemia: No Asthma: Yes Cancer: No Cardiac Disorders: No CVA: No COPD: No CHF: No Dementia: No Diabetes: No GI Disorders: No Disorders: No HTN: Yes (HTN, diastollic dysfunction) Hypercholesterolemia: Yes Liver Disease: No Psychiatric Problems: Yes Seizures: No Thyroid Disease: No - Surgical History Abdominal Surgery: Yes (Repair of Adhesions) Appendectomy: No Cardiac Surgery: No Cholecystectomy: Yes (LAPAROSCOPIC CHOLECYSTECTOMY) Lung Surgery: No Neurologic Surgery: No Orthopedic Surgery: Yes (RIGHT KNEE ARTHROSCOPIC SURGERY) - Immunization History Td Vaccination: Yes Immunization Up to Date: No - Suicide/Smoking/Psychosocial Hx Smoking Status: No Smoking History: Never smoked Have you smoked in the past 12 months: No Number of Cigarettes Smoked Daily: 0 Hx Alcohol Use: No Drug/Substance Use Hx: No Substance Use Type: None Hx Substance Use Treatment: No Review of Systems - Review of Systems Comments:: 02/07/17 10:28 "GENERAL/CONSTITUTIONAL: No fever or chills. No weakness. HEAD, EYES, EARS, NOSE AND THROAT: No change in vision. No ear pain or discharge. No sore throat. CARDIOVASCULAR: No chest pain or shortness of breath. RESPIRATORY: + cough, no wheezing, or hemoptysis. GASTROINTESTINAL: No nausea, vomiting, diarrhea or constipation. GENITOURINARY: No dysuria, frequency, or change in urination. MUSCULOSKELETAL: No joint or muscle swelling or pain. No neck or back pain. SKIN: No rash NEUROLOGIC: No headache, vertigo, loss of consciousness, or change in strength/ sensation. ENDOCRINE: No increased thirst. No abnormal weight change. HEMATOLOGIC/LYMPHATIC: No anemia, easy bleeding, or history of blood clots. ALLERGIC/IMMUNOLOGIC: No hives or skin allergy. " *Physical Exam - Vital Signs Last Vital Signs Temp Pulse Resp BP Pulse Ox 98.5 F 83 20 156/86 98 02/07/17 08:10 02/07/17 08:10 02/07/17 08:10 02/07/17 08:10 02/07/17 08:10 - Physical Exam Comments: 02/07/17 10:28 "GENERAL: Awake, alert, and fully oriented, in no acute distress HEAD: No signs of trauma EYES: PERRLA, EOMI, sclera anicteric, conjunctiva clear ENT: Auricles normal inspection, hearing grossly normal, nares patent, oropharynx clear without exudates. Moist mucosa NECK: Nontender, no stepoffs, Normal ROM, supple, no lymphadenopathy, JVD, or masses LUNGS: Breath sounds equal, clear to auscultation bilaterally. No wheezes, and no crackles HEART: Regular rate and rhythm, normal S1 and S2, no murmurs, rubs or gallops ABDOMEN: Soft, nontender, normoactive bowel sounds. No guarding, no rebound. No masses EXTREMITIES: Normal range of motion, no edema. No clubbing or cyanosis. No cords, erythema, or tenderness NEUROLOGICAL: Cranial nerves II through XII intact. 5/5 strength and sensation in all extremities, Normal speech, normal gait SKIN: Warm, Dry, normal turgor, no rashes or lesions noted. " ED Treatment Course - LABORATORY CBC & Chemistry Diagram: 02/07/17 07:42 Medical Decision Making - Medical Decision Making 02/07/17 10:28 61 F with cough x 1 week, no other infectious symptoms. Likely viral URI vs bronchitis. Will r/o PNA with CXR. Pt with normal vitals, no clinical signs of DVT, making PE unlikely. No signs of volume overload or heart failure on exam. Consider asthma because of relief of cough with albuterol pump. However, exam without any wheezes. - Labs - CXR - Trial of nebulizers 02/07/17 13:46 Pt reassessed s/p nebs. Reports cough has improved significantly. CXR negative. Labs unremarkable. Pt well appearing. Clinically stable for DC. *DC/Admit/Observation/Transfer Diagnosis at time of Disposition: Cough - Discharge Dispostion Disposition: HOME Condition at time of disposition: Stable - Prescriptions Prescriptions: Azithromycin 250 mg PO DAILY #4 tablet - Referrals Referrals: Aj Olson MD [Primary Care Provider] - - Patient Instructions Printed Discharge Instructions: DI for Acute Bronchitis Additional Instructions: Continue using your albuterol pump every 4 hours as needed for coughing. Follow up with Dr. Olson this week for a re-evaluation. If you experience worsening cough, chest pain, shortness of breath, fevers, or any other concerning symptoms, return to the ER immediately. - Attestations Physician Attestion: 02/07/17 10:30 I, Dr. Javad Johns MD, attest that this document has been prepared under my direction and personally reviewed by me in its entirety. I further attest, that it accurately reflects all work, treatment, procedures and medical decision -making performed by me.
[2017-02-07] MEDS ORDERED: ALBUTEROL SO4 2.5/IPRATROPIUM 0.5 INH SOL 3 ML VIAL.NEB. NEB ONE ×2 (09:23)
[2017-02-07 09:44] LABS: CPK 92 IU/L (26-192)
[2017-02-07 09:52] LABS: TROPONIN I (DFP) < 0.03 ng/ml (0.03-0.50)
[2017-02-07] MEDS ORDERED: AZITHROMYCIN 500 MG TABLET PO ONE (10:30)
== END 2017-02-07 10:41 | disposition home or self-care (01) ==
LOC: FER 08:09
PROC: 3E0F7GC Introduction of Other Therapeutic Substance into Respiratory Tract, Via Natural or Artificial Opening (ICD-10-PCS; principal; 2017-02-07)
DX: R05 Cough (principal); E78.5 Hyperlipidemia, unspecified; I10 Essential (primary) hypertension; J45.909 Unspecified asthma, uncomplicated
CPT/HCPCS: 36415; 71020-TC; 83880; 84484; 99281-25

== ENCOUNTER 2017-09-30 21:23 | Emergency (ER) | payer BC ==
[2017-09-30 21:30] VITALS: BP 131/67; PULSE 88; TEMP 99.2; BMI 39.6
--- NOTE | 2017-09-30 21:30 | PDOC ---
History of Present Illness - History of Present Illness Initial Comments: 09/30/17 21:39 Patient is a 62F, with PMHx of HTN, HLD, and asthma, who presents with 2 days of cough. Patient reports 2 days of productive cough with yellow sputum. She states that she has been using her inhaler with no relief. She denies fevers, sore throat, SOB. MEDICATIONS: reviewed ALLERGIES: As per nursing notes ROS General: No fevers or chills, no weakness, no weight loss HEENT: No change in vision. No sore throat, No ear pain Cardiovascular: No chest pain or shortness of breath Respiratory: +productive cough (yellow sputum) Gastrointestinal: No nausea, vomiting, diarrhea or constipation, No rectal bleeding Genitourinary: No dysuria, hematuria, or frequency Musculoskeletal: No joint or muscle pain or swelling Neurologic: No headache, vertigo, dizziness or loss of consciousness Psychiatric: No depression Skin: No rashes or easy bruising Endocrine: No increased thirst or abnormal weight change Allergic: No skin or latex allergy All other systems reviewed and normal PE General: Well-nourished well-developed individual, no acute distress HEENT: Throat: Normal, tonsils normal, no erythema or exudate Neck: Supple, no meningeal signs, no lymphadenopathy Eyes::Pupils equal reactive and round, extraocular motion intact Chest: Nontender to palpation Cardiac: S1-S2 normal, regular rate and rhythm, no murmurs rubs or gallops Respiratory: +Mild expiratory wheezing. Noted to have a harsh cough. Abdomen: Soft, nondistended, normal bowel sounds, nontender to palpation diffusely Extremities: Warm, dry, no cyanosis, clubbing, or edema Skin: No rashes Neuro: Alert and oriented x3, nonfocal exam, grossly intact, normal gait Psych: Normal mood and affect 09/30/17 21:51 <Lisa Cook - Last Filed: 09/30/17 21:51> - General History Source: Patient Exam Limitations: No Limitations - History of Present Illness Initial Comments: 09/30/17 21:53 A portion of this note was documented by scribe services under my direction. I have reviewed the details of the note, within reason, and agree with the documentation. The case summary and management plan written by me. Assessment and plan: This is a 62-year-old female who comes in complaining of acute exacerbation of her asthma type symptoms. Patient's complaining of cough but also notes that there is some yellow sputum production. Will give patient dual nebs prednisone and obtain a chest x-ray to rule out any infiltrate. 09/30/17 22:12 Chest x-ray no acute pathology Assessment and plan: This is a 62-year-old female with history of asthma who comes in complaining of acute exacerbation of her asthma. Patient given prednisone and dual neb with improvement in her symptoms. Patient had complained of some yellow phlegm so a chest x-ray is done and is negative for any acute pathology. Patient discharged home with prescription for a short burst of steroids and a referral to a [facility] special [facility] Dr. Giordano <Malena Baez I - Last Filed: 09/30/17 22:19> - General Chief Complaint: Respiratory Stated Complaint: COUGH Time Seen by Provider: 09/30/17 21:29 Past History <Lisa Cook - Last Filed: 09/30/17 21:51> - Past Medical History Anemia: No Asthma: Yes Cancer: No Cardiac Disorders: No CVA: No COPD: No CHF: No Dementia: No Diabetes: No GI Disorders: No Disorders: No HTN: Yes (HTN, diastollic dysfunction) Hypercholesterolemia: Yes Liver Disease: No Psychiatric Problems: Yes Seizures: No Thyroid Disease: No - Surgical History Abdominal Surgery: Yes (Repair of Adhesions) Appendectomy: No Cardiac Surgery: No Cholecystectomy: Yes (LAPAROSCOPIC CHOLECYSTECTOMY) Lung Surgery: No Neurologic Surgery: No Orthopedic Surgery: Yes (RIGHT KNEE ARTHROSCOPIC SURGERY) - Immunization History Td Vaccination: Yes Immunization Up to Date: No - Suicide/Smoking/Psychosocial Hx Smoking Status: No Smoking History: Never smoked Have you smoked in the past 12 months: No Number of Cigarettes Smoked Daily: 0 Hx Alcohol Use: No Drug/Substance Use Hx: No Substance Use Type: None Hx Substance Use Treatment: No <Malena Baez I - Last Filed: 09/30/17 22:19> - Past Medical History Allergies/Adverse Reactions: Allergies Allergy/AdvReac Type Severity Reaction Status Date / Time ketorolac tromethamine AdvReac Severe Vomiting Verified 02/07/17 08:10 [From Toradol] lurasidone HCl [From Latuda] AdvReac Severe DEPRESSIVE Verified 02/07/17 08:10 oxycodone HCl [From Percocet] AdvReac Severe Vomiting Verified 02/07/17 08:10 propoxyphene napsylate AdvReac Severe Vomiting Verified 02/07/17 08:10 [From Darvocet-N] (severe) Home Medications: Ambulatory Orders Clonazepam [Klonopin] 5 mg PO HS 05/14/16 Albuterol Sulfate [Proair Respiclick] 90 mcg IH DAILY 06/30/16 Lamotrigine [Lamictal -] 75 mg PO HS 09/30/17 Lamotrigine [Lamictal -] 200 mg PO HS 09/30/17 Pramipexole Dihydrochloride [Mirapex -] 1 mg PO HS 09/30/17 Prednisone [Deltasone] 60 mg PO DAILY #12 tablet 09/30/17 Verapamil HCl [Verapamil ER] 120 mg PO HS 09/30/17 Review of Systems - Review of Systems Comments:: 09/30/17 21:39 see HPI <Lisa Cook - Last Filed: 09/30/17 21:51> *Physical Exam - Vital Signs Last Vital Signs Temp Pulse Resp BP Pulse Ox 99.2 F 88 18 131/67 98 09/30/17 21:28 09/30/17 21:28 09/30/17 21:28 09/30/17 21:28 09/30/17 21:28 - Physical Exam Comments: 09/30/17 21:39 see HPI <Lisa Cook - Last Filed: 09/30/17 21:51> *DC/Admit/Observation/Transfer - Attestations Scribe Attestion: 09/30/17 21:39 Documentation prepared by Lisa Cook, acting as durable medical equipment technician for Malena Baez MD. <Lisa Cook - Last Filed: 09/30/17 21:51> - Discharge Dispostion Decision to Admit order: No <Malena Baez I - Last Filed: 09/30/17 22:19> Diagnosis at time of Disposition: Acute asthma exacerbation Qualifiers: Asthma severity: mild Asthma persistence: intermittent Qualified Code(s): J45.21 - Mild intermittent asthma with (acute) exacerbation - Discharge Dispostion Disposition: HOME Condition at time of disposition: Stable - Referrals Referrals: Aj Olson MD [Primary Care Provider] - Esequiel Giordano MD [Staff Physician] - - Patient Instructions Additional Instructions: The prescription for prednisone and take 60 mg a day for the next 4 days. Follow-up with a fabric[facility] special [facility] Dr. Giordano. Return to the emergency department immediately with ANY new, persistent or worsening symptoms. Continue any medications as previously prescribed by your physician. You should follow up with your primary doctor as soon as possible regarding today's emergency department visit. . Please make sure your doctor reviews the results of your emergency evaluation. Thank you for coming to the Emergency Department today for your care. It was a pleasure to see you today. Please note that your evaluation is INCOMPLETE until you follow-up with your doctor. - Post Discharge Activity
[2017-09-30] MEDS ORDERED: ALBUTEROL SO4 2.5/IPRATROPIUM 0.5 INH SOL 3 ML VIAL.NEB. NEB ONE ×2 (21:39)
[2017-09-30] MEDS ORDERED: predniSONE 20 MG TABLET (UD) PO ONE (21:52)
[2017-09-30] MEDS ORDERED: predniSONE 20 MG TABLET (UD) ONE (21:52)
== END 2017-09-30 22:20 | disposition home or self-care (01) ==
LOC: FER 21:23
PROC: 3E0F7GC Introduction of Other Therapeutic Substance into Respiratory Tract, Via Natural or Artificial Opening (ICD-10-PCS; principal; 2017-09-30)
DX: J45.21 Mild intermittent asthma with (acute) exacerbation (principal); I10 Essential (primary) hypertension; E78.00 Pure hypercholesterolemia, unspecified; F99 Mental disorder, not otherwise specified
CPT/HCPCS: 71045-TC-FY; 99281-25; J7620

== ENCOUNTER 2017-10-03 11:20 | Inpatient (IN) | payer BC ==
[2017-10-03] MEDS ORDERED: ALBUTEROL SO4 2.5/IPRATROPIUM 0.5 INH SOL 3 ML VIAL.NEB. NEB ONE ×3 (11:32→12:14)
[2017-10-03] MEDS ORDERED: methylPREDNISolone NA SUCC 125 MG/2 ML VIAL IVPB ONE (11:40)
--- NOTE | 2017-10-03 11:45 | PDOC ---
History of Present Illness - General Chief Complaint: Asthma Stated Complaint: ASTHMA Time Seen by Provider: 10/03/17 11:25 History Source: Patient Exam Limitations: No Limitations - History of Present Illness Initial Comments: 10/03/17 11:41 62y F hx of htn, hl, asthma (no hx of intubations or hospitalizations for asthma ) presents with 4 days of cough/sob. Pt notes she came to the ED 3 days ago for evaluation and was dc, and again to [facility] and was d/c. Not feeling better, went to see her PMD and was evaluated by pulmonology who referred her to the ED. The pt denies any fever/chills, mild cough, nonproductive but +nasal congestion , no hemoptysis, chest pain, leg swelling, abd pain, n/v, diaphoresis, lightheadedness, palpitations. Pt dnies any diarrhea, melena, bpr, dysuria. Past History - Past Medical History Allergies/Adverse Reactions: Allergies Allergy/AdvReac Type Severity Reaction Status Date / Time ketorolac tromethamine AdvReac Severe Vomiting Verified 10/03/17 13:04 [From Toradol] lurasidone HCl [From Latuda] AdvReac Severe DEPRESSIVE Verified 10/03/17 13:04 oxycodone HCl [From Percocet] AdvReac Severe Vomiting Verified 10/03/17 13:04 propoxyphene napsylate AdvReac Severe Vomiting Verified 10/03/17 13:04 [From Darvocet-N] (severe) Home Medications: Ambulatory Orders Clonazepam [Klonopin] 5 mg PO HS 05/14/16 Albuterol Sulfate [Proair Respiclick] 90 mcg IH DAILY 06/30/16 Lamotrigine [Lamictal -] 75 mg PO HS 09/30/17 Lamotrigine [Lamictal -] 200 mg PO HS 09/30/17 Pramipexole Dihydrochloride [Mirapex -] 1 mg PO HS 09/30/17 Prednisone [Deltasone] 60 mg PO DAILY #12 tablet 09/30/17 Verapamil HCl [Verapamil ER] 120 mg PO HS 09/30/17 Anemia: No Asthma: Yes Cancer: No Cardiac Disorders: No CVA: No COPD: No CHF: No Dementia: No Diabetes: No Dialysis: Yes GI Disorders: No Disorders: No HTN: Yes (HTN, diastollic dysfunction) Hypercholesterolemia: Yes Liver Disease: No Psychiatric Problems: Yes Seizures: No Thyroid Disease: No - Surgical History Abdominal Surgery: Yes (Repair of Adhesions) Appendectomy: No Cardiac Surgery: No Cholecystectomy: Yes (LAPAROSCOPIC CHOLECYSTECTOMY) GI Surgery: Yes Lung Surgery: No Neurologic Surgery: No Orthopedic Surgery: Yes (RIGHT KNEE ARTHROSCOPIC SURGERY) - Immunization History Td Vaccination: Yes Immunization Up to Date: No - Suicide/Smoking/Psychosocial Hx Smoking Status: No Smoking History: Never smoked Have you smoked in the past 12 months: No Number of Cigarettes Smoked Daily: 0 Hx Alcohol Use: No Drug/Substance Use Hx: No Substance Use Type: None Hx Substance Use Treatment: No Review of Systems - Review of Systems Able to Perform ROS?: Yes Comments:: 10/03/17 11:43 Constitutional - no reported Fever, Chills, HEENT: no reported vision changes, sore throat Respiratory: + cough, sob, no reported hemoptysis Cardiac: no reported chest pain, palpitations, light headedness, leg swelling Abd/GI: no reported abd pain, nausea, vomiting, blood per rectum, melena, diarrhea : no reported dysuria, frequency, discharge Musculskelatal - no reported back pain, joint swelling skin - no reported bruising, erythema, rash neurological: no reported headache, numbness, focal weakness, tingling, ataxia, hematologic: no reported easy bruising, easy bleeding *Physical Exam - Physical Exam Comments: 10/03/17 11:44 GENERAL: The patient is awake, alert, and fully oriented, HEAD: Normocephalic, atraumatic. EYES: extraocular movements intact, sclera anicteric, conjunctiva clear. ENT: Normal voice, Moist mucous membranes. NECK: Normal range of motion, supple LUNGS: moderate distress, audible wheezing on exculation, speaking complete sentences HEART: Regular rate and rhythm, normal S1 and S2 without murmur, rub or gallop. ABDOMEN: Soft, nontender, No guarding, no rebound. . No CVA tenderness EXTREMITIES: Normal range of motion, no edema. No cyanosis, No cords, erythema , or tenderness. NEUROLOGICAL: No facial assymetry, Normal speech, moving all 4 extremities spontaneously and symmerically PSYCH: Normal mood, normal affect. SKIN: Warm, Dry, normal turgor, Heart Score/ECG Review - ECG Impressions Comment:: 10/03/17 13:10 Twelve-lead EKG was performed and reviewed by me. There is normal sinus rhythm with a normal rate. Rate of 74 T wave in lead [address] changes suggestive of acute ischemia ED Treatment Course - LABORATORY CBC & Chemistry Diagram: 10/03/17 12:00 10/03/17 12:00 Medical Decision Making - Medical Decision Making 10/03/17 11:45 Persistent asthmatic exacerbation We'll give nebulizers, steroids She declines chest x-ray she had one 3 days ago Will obtain blood work will reassess 10/03/17 13:12 pt feeling improved, slightly hypoxic will admit for furthe rmanagement 10/03/17 13:24 case dw [employer] [place] agree with observation for further mangaement of asthma under dr. Grey service Case discussed in detail with admitting physician including history, physical exam and ancillary studies. Admitting physician has assumed care for the patient, will follow all pending diagnostics and will complete the evaluation and treatment. *DC/Admit/Observation/Transfer Diagnosis at time of Disposition: Asthma Qualifiers: Asthma severity: mild Asthma persistence: unspecified Asthma complication type : with acute exacerbation Qualified Code(s): J45.901 - Unspecified asthma with ( acute) exacerbation - Discharge Dispostion Condition at time of disposition: Guarded Decision to Admit order: Yes - Referrals Referrals: Lico Canela MD [Primary Care Provider] - - Patient Instructions - Post Discharge Activity
[2017-10-03] MEDS ORDERED: methylPREDNISolone NA SUCC 125 MG/2 ML VIAL ONE (11:54)
[2017-10-03] MEDS ORDERED: MAGNESIUM SULF 50% (8.12 MEQ/2 ML-1 GM VIAL) IVPB ONE (12:14)
[2017-10-03] MEDS ORDERED: ALBUTEROL SO4 0.083% IH SOL 2.5 MG/3 ML VIAL.NEB. NEB ONE ×2 (12:22→12:50)
[2017-10-03 12:33] LABS: ALBUMIN 3.6 g/dl (3.5-5.0); ALK PHOS 110 U/L (32-92); ANION GAP 5 (8-16); BLOOD UREA NITROGEN 18 mg/dl (7-18); CALCIUM 8.5 mg/dl (8.4-10.2); CHLORIDE 103 mmol/L (98-107); CO2 28 mmol/L (22-28); CREATININE 0.8 mg/dl (0.6-1.3); GLUCOSE,RANDOM 102 mg/dl (74-106); POTASSIUM 3.9 mmol/L (3.5-5.1); SGOT/AST 24 U/L (10-42); SGPT/ALT 39 U/L (10-40); SODIUM 136 mmol/L (136-145); TOT PROT 6.6 g/dl (6.4-8.3)
[2017-10-03 12:52] LABS: BILIRUBIN,TOTAL < 0.5 mg/dl (0.2-1.0)
[2017-10-03 12:54] LABS: BASO % 0.5 % (0-2.0); EOS % 1.6 % (0-4.5); HEMATOCRIT 42.2 % (32.4-45.2); HEMOGLOBIN 13.9 GM/dl (10.7-15.3); LYMPH % 21.9 % (8-40); MCH 28.4 pg (25.7-33.7); MCHC 32.9 g/dl (32.0-36.0); MEAN CELL VOLUME 86.3 fl (80-96); MEAN PLT VOLUME 7.8 fl (7.5-11.1); MONO % 12.8 % (3.8-10.2); NEUT % 63.2 % (42.8-82.8); PLATELET COUNT 253 K/MM3 (134-434); RBC 4.89 M/mm3 (3.60-5.2); RDW 14.1 % (11.6-15.6); WHITE BLOOD COUNT 6.2 K/mm3 (4.0-10.8)
[2017-10-03] MEDS ORDERED: MAGNESIUM SULF 50% (8.12 MEQ/2 ML-1 GM VIAL) ONE (12:54)
--- NOTE | 2017-10-03 13:22 | HP ---
CHIEF COMPLAINT: cough and wheeze PCP: Dr Canela HISTORY OF PRESENT ILLNESS: Patient is a 62 y/o female with a past medical history of hypertension, diastolic dysfunction, bipolar disorder, and restless leg syndrome. Patient reports cough and wheezing for the past 4 days. She was evaluated in this emergency department on 09/30/17 and was prescribed prednisone with albuterol inhaler for asthma exacerbation and discharged home. Patient reports taking prednisone as prescrbed and shortness of breath persisted throughout the evening of September 30. She was then evaluated at [facility] on 10/01/17 and was discharged with a diagnosis of bronchitis. Patient reports compliance with prednsione, however, the shortness of breath has worsened within the past 24 hours and she was evaluation by her primary care physician Dr Canela and was referred to the emergency department for evaluation. ER course was notable for: (1) spo2 88% on room air after solumedrol, magnesium 2gm iv and 3 albuterol nebulizers (2) troponin x 1 wnl Recent Travel: none PAST MEDICAL HISTORY: see hpi PAST SURGICAL HISTORY: lap marcela, exp lap lysis of adhesions Social History: resides at home with spouse Smoking: never smoked tobacco as per patient Alcohol:none Drugs: none Family History: mom brain CA father CVA Allergies ketorolac tromethamine [From Toradol] Adverse Reaction (Severe, Verified 13:04) Vomiting lurasidone HCl [From Latuda] Adverse Reaction (Severe, Verified 10/03/17 13:04) DEPRESSIVE oxycodone HCl [From Percocet] Adverse Reaction (Severe, Verified 10/03/17 13:04) Vomiting propoxyphene napsylate [From Darvocet-N] Adverse Reaction (Severe, Verified 13:04) Vomiting (severe) HOME MEDICATIONS: Home Medications Medication Instructions Recorded Clonazepam [Klonopin] 5 mg PO HS 05/14/16 Albuterol Sulfate [Proair 90 mcg IH DAILY 06/30/16 Respiclick] Lamotrigine [Lamictal -] 75 mg PO HS 09/30/17 Lamotrigine [Lamictal -] 200 mg PO HS 09/30/17 Pramipexole Dihydrochloride 1 mg PO HS 09/30/17 [Mirapex -] Prednisone [Deltasone] 60 mg PO DAILY #12 tablet 09/30/17 Verapamil HCl [Verapamil ER] 120 mg PO HS 09/30/17 REVIEW OF SYSTEMS CONSTITUTIONAL: Absent: fever, chills, diaphoresis, generalized weakness, malaise, loss of appetite, weight change HEENT: Absent: rhinorrhea, nasal congestion, throat pain, throat swelling, difficulty swallowing, mouth swelling, ear pain, eye pain, visual changes CARDIOVASCULAR: Absent: chest pain, syncope, palpitations, irregular heart rate, lightheadedness , peripheral edema RESPIRATORY: present: shortness of breath, dyspnea with exertion, wheezing Absent: cough, orthopnea,, stridor, hemoptysis GASTROINTESTINAL: Absent: abdominal pain, abdominal distension, nausea, vomiting, diarrhea, constipation, melena, hematochezia GENITOURINARY: Absent: dysuria, frequency, urgency, hesitancy, hematuria, flank pain, genital pain MUSCULOSKELETAL: Absent: myalgia, arthralgia, joint swelling, back pain, neck pain SKIN: Absent: rash, itching, pallor HEMATOLOGIC/IMMUNOLOGIC: Absent: easy bleeding, easy bruising, lymphadenopathy, frequent infections ENDOCRINE: Absent: unexplained weight gain, unexplained weight loss, heat intolerance, cold intolerance NEUROLOGIC: Absent: headache, focal weakness or paresthesias, dizziness, unsteady gait, seizure, mental status changes, bladder or bowel incontinence PSYCHIATRIC: Absent: anxiety, depression, suicidal or homicidal ideation, hallucinations. PHYSICAL EXAMINATION Vital Signs - 24 hr 10/03/17 10/03/17 11:21 13:00 Temperature 98.1 F Pulse Rate 78 75 Respiratory 24 Rate Blood Pressure 134/60 O2 Sat by Pulse 94 L 96 Oximetry (%) GENERAL: Awake, alert, and fully oriented, in no acute distress. HEAD: Normal with no signs of trauma. EYES: Pupils equal, round and reactive to light, extraocular movements intact, sclera anicteric, conjunctiva clear. No lid lag. EARS, NOSE, THROAT: Ears normal, nares patent, oropharynx clear without exudates. Moist mucous membranes. NECK: Normal range of motion, supple without lymphadenopathy, JVD, or masses. LUNGS: Breath sounds equal, billateral inspiratory wheeze to apexes and course rhonchi to apexes, and no crackles. No accessory muscle use. HEART: Regular rate and rhythm, normal S1 and S2 without murmur, rub or gallop. ABDOMEN: Soft, nontender, not distended, normoactive bowel sounds, no guarding, no rebound, no masses. No hepatomegaly or splenomegaly. MUSCULOSKELETAL: Normal range of motion at all joints. No bony deformities or tenderness. No CVA tenderness. UPPER EXTREMITIES: 2+ pulses, warm, well-perfused. No cyanosis. No clubbing. No peripheral edema. LOWER EXTREMITIES: 2+ pulses, warm, well-perfused. No calf tenderness. No peripheral edema. NEUROLOGICAL: Cranial nerves II-XII intact. Normal speech. Normal gait. PSYCHIATRIC: Cooperative. Good eye contact. Appropriate mood and affect. SKIN: Warm, dry, normal turgor, no rashes or lesions noted, normal capillary refill. Laboratory Results - last 24 hr 10/03/17 10/03/17 10/03/17 12:00 12:00 12:00 WBC 6.2 RBC 4.89 Hgb 13.9 Hct 42.2 MCV 86.3 MCH 28.4 MCHC 32.9 RDW 14.1 Plt Count 253 MPV 7.8 Neutrophils % 63.2 Lymphocytes % 21.9 Monocytes % 12.8 H Eosinophils % 1.6 Basophils % 0.5 Sodium 136 Potassium 3.9 Chloride 103 Carbon Dioxide 28 Anion Gap 5 L BUN 18 Creatinine 0.8 Creat Clearance w eGFR > 60 Random Glucose 102 Calcium 8.5 Total Bilirubin < 0.5 AST 24 ALT 39 D Alkaline Phosphatase 110 H Creatine Kinase 117 Troponin I < 0.03 Total Protein 6.6 Albumin 3.6 ASSESSMENT/PLAN: 1) pulm asthma exacerbation - solumedrol 125mg given in ED, wheezing and hypoxia noted on exam, started solumedrol 40mg qid ordered - cta of chest ordered r/o pe - start symbicort and standing duonebs - keep spod2 above 92% with supplemental O2 - appreciate pulmonary input 2) cardiovascular hypertension - continue loosartan, b/p at goal hyperlipidemia - continue crestor 3) neuro RLS - continue mirapex 4) psych bipolar disorder - continue lamictal and klonopin home doses f/e/n - low sodium diet - replete lytes prn ppx - pepcid - heparin dispo: pt requires observation admission Visit type - Emergency Visit Emergency Visit: Yes ED Registration Date: 10/03/17 Care time: The patient presented to the Emergency Department on the above date and was hospitalized for further evaluation of their emergent condition. - New Patient This patient is new to me today: No - Critical Care Critical Care patient: No Hospitalist Screening - Colonoscopy Questionnaire Colonoscopy Questionnaire: Colonoscopy Questionnaire - Patient: 50 - 75 years old and never had a screening colonoscopy: Yes History of colon or rectal polyps, or CA: No History of IBD, Crohn's disease or UC: No History of abdominal radiation therapy as a child: No - Relative: 1 with colon or rectal CA, or polyps at age 60 or younger: No Colon or rectal CA diagnosed at age 45 or younger: No Multiple relatives with colon or rectal CA: No - Outcome: Screening Result: Positive Screen
[2017-10-03] MEDS ORDERED: ALBUTEROL SO4 0.083% IH SOL 2.5 MG/3 ML VIAL.NEB. NEB PRN (13:28)
[2017-10-03 13:36] LABS: N-TERMINAL BNP 57.34 pg/ml (5-125)
[2017-10-03] MEDS ORDERED: ACETAMINOPHEN 325 MG TABLET (FP) PO PRN (13:56)
[2017-10-03] MEDS ORDERED: methylPREDNISolone NA SUCC 40 MG/1 ML VIAL IVPUSH SCH (14:00)
[2017-10-03] MEDS: BUDESONIDE/FORMETEROL FUMARATE 80/4.5 mcg INHALER IH SCH ×2 (14:00→22:22)
[2017-10-03] MEDS: methylPREDNISolone NA SUCC 40 MG/1 ML VIAL IVPUSH SCH ×2 (15:35→21:40)
[2017-10-03 16:17] VITALS: BMI 39.4
--- NOTE | 2017-10-03 16:19 | CON.PULM ---
Consult Consult Specialty:: PULMONARY Referred by:: ALYCE Reason for Consultation:: SOB/COUGH/WHEEZE - History of Present Illness Chief Complaint: SOB/COUGH/WHEEZE History of Present Illness: Patient is a 62 y/o female with a past medical history of hypertension, diastolic dysfunction, bipolar disorder, and restless leg syndrome. Patient reports cough and wheezing for the past 4 days. She was evaluated in this emergency department on 09/30/17 and was prescribed prednisone with albuterol inhaler for asthma exacerbation and discharged home. Patient reports taking prednisone as prescrbed and shortness of breath persisted throughout the evening of September 30. She was then evaluated at [facility] on and was discharged with a diagnosis of bronchitis. Patient reports compliance with prednsione, however, the shortness of breath has worsened within the past 24 hours. She was evaluated by me this am and was referred to the emergency department for admission and treatment. - History Source History Provided By: Patient, Family Member, Medical Record Limitations to Obtaining History: No Limitations - Past Medical History TEACHER HEARING IMPAIRED: Yes: Other (RLS). No: Alzheimer's Cardio/Vascular: Yes: HTN, Other (LVDD). No: AFIB Pulmonary: Yes: COPD. No: Cancer, O2 Dependent, Pneumonia Gastrointestinal: No: Ascites Hepatobiliary: No: Cirrhosis Renal/: No: Renal Failure Reproductive: Yes: Postmenopausal ...: No Heme/Onc: No: Anemia Musculoskeletal: Yes: Chronic low back pain - Past Surgical History Past Surgical History: Yes: Cholecystectomy, Hernia Repair, Hysterectomy Additional Surgical History: HERNIATED DISC - Alcohol/Substance Use Hx Alcohol Use: No - Smoking History Smoking history: Never smoked Have you smoked in the past 12 months: No Aproximately how many cigarettes per day: 0 - Social History Usual Living Arrangement: With Spouse Place of : [facility] History of Recent Travel: No Home Medications - Allergies Allergies/Adverse Reactions: Allergies Allergy/AdvReac Type Severity Reaction Status Date / Time ketorolac tromethamine AdvReac Severe Vomiting Verified 10/03/17 13:04 [From Toradol] lurasidone HCl [From Latuda] AdvReac Severe DEPRESSIVE Verified 10/03/17 13:04 oxycodone HCl [From Percocet] AdvReac Severe Vomiting Verified 10/03/17 13:04 propoxyphene napsylate AdvReac Severe Vomiting Verified 10/03/17 13:04 [From Darvocet-N] (severe) - Home Medications Home Medications: Ambulatory Orders Clonazepam [Klonopin] 5 mg PO HS 05/14/16 Albuterol Sulfate [Proair Respiclick] 90 mcg IH DAILY 06/30/16 Lamotrigine [Lamictal -] 75 mg PO HS 09/30/17 Lamotrigine [Lamictal -] 200 mg PO HS 09/30/17 Pramipexole Dihydrochloride [Mirapex -] 1 mg PO HS 09/30/17 Prednisone [Deltasone] 60 mg PO DAILY #12 tablet 09/30/17 Verapamil HCl [Verapamil ER] 120 mg PO HS 09/30/17 Family Disease History - Family Disease History Family History: Unremarkable Review of Systems - Review of Systems Constitutional: reports: Loss of Appetite, Weakness. denies: Fever Eyes: denies: Blind Spots HENT: denies: Difficult Swallowing Neck: denies: Decreased ROM Cardiovascular: reports: Shortness of Breath. denies: Chest Pain Respiratory: reports: Exercise Intolerance, SOB, SOB on Exertion, Wheezing. denies: Hemoptysis, Orthopnea Gastrointestinal: denies: Abdominal Pain Genitourinary: denies: Burning Breasts: reports: No Symptoms Reported Musculoskeletal: reports: No Symptoms Integumentary: reports: No Symptoms Neurological: reports: No Symptoms Endocrine: reports: No Symptoms Physical Exam Vital Sings: Vital Signs Temperature 98.1 F 10/03/17 11:21 Pulse Rate 75 10/03/17 13:00 Respiratory Rate 24 10/03/17 11:21 Blood Pressure 134/60 10/03/17 11:21 O2 Sat by Pulse Oximetry (%) 96 10/03/17 13:00 Constitutional: Yes: Anxious Eyes: Yes: EOM Intact HENT: Yes: Normocephalic Neck: Yes: Trachea Midline Cardiovascular: Yes: Regular Rate and Rhythm Respiratory: Yes: Rhonchi, Wheezes (BILATERAL DIFFUSE) Gastrointestinal: Yes: Normal Bowel Sounds, Abdomen, Obese Edema: No Labs: CBC, BMP 10/03/17 12:00 10/03/17 12:00 REST REVIEWED Imaging - Results Chest X-ray: Report Reviewed, Image Reviewed Cat Scan: Image Reviewed Problem List - Problems (1) Asthma Code(s): J45.909 - UNSPECIFIED ASTHMA, UNCOMPLICATED Qualifiers: Asthma severity: mild Asthma persistence: unspecified Asthma complication type: with acute exacerbation Qualified Code(s): J45.901 - Unspecified asthma with (acute) exacerbation (2) Acute asthma exacerbation Code(s): J45.901 - UNSPECIFIED ASTHMA WITH (ACUTE) EXACERBATION Qualifiers: Asthma severity: mild Asthma persistence: intermittent Qualified Code(s) : J45.21 - Mild intermittent asthma with (acute) exacerbation (3) COPD with acute bronchitis Code(s): J44.0 - CHRONIC OBSTRUCTIVE PULMON DISEASE W ACUTE LOWER RESP INFCT (4) Cough Code(s): R05 - COUGH Assessment/Plan ACUTE ASTHMATIC EXACERBATION LIKELY DUE TO ACUTE BRONCHITIS NO CT EVIDENCE TO SUGGEST PNEUMONIA(AWAITING OFFICIAL REPORT) MULTIPLE CO-MORBID CONDITIONS NOTED O2 TO KEEP SAT GREATER THAN 90% HOOD/LABA/LAMA/ICS/IV STEROIDS/SINGULAIR EMIRIC ANTIBIOTIC COVERAGE DAILY PEAK FLOW OBTAIN OFFICIAL READING OF CT CHEST WILL FOLLOW THANK YOU. Robin POLLARD MD
[2017-10-03] MEDS ORDERED: CEFTRIAXONE 1 GM in DEXTROSE 5%-WATER - 50 ML IVPB ONE (16:26)
[2017-10-03] MEDS: ALBUTEROL SO4 2.5/IPRATROPIUM 0.5 INH SOL 3 ML VIAL.NEB. NEB SCH ×2 (16:50→20:40)
[2017-10-03] MEDS ORDERED: PT OWN MED DRAWER 7, Y5N ONE (21:14)
[2017-10-03] MEDS: clonazePAM 0.5 MG TABLET PO SCH (21:40)
[2017-10-03] MEDS: FAMOTIDINE 20 MG TABLET PO SCH (21:41)
[2017-10-03] MEDS: ROSUVASTATIN CA 5 MG TABLET (FP) PO SCH (21:41)
[2017-10-03] MEDS: PRAMIPEXOLE DIHYDROCHLORIDE 1 MG TABLET PO SCH (21:41)
[2017-10-03] MEDS: lamoTRIgine 25 MG TABLET PO SCH (21:41)
[2017-10-03] MEDS: VERAPAMIL HCL 120 MG E.R. TABLET PO SCH (21:42)
[2017-10-04] MEDS: ALBUTEROL SO4 0.083% IH SOL 2.5 MG/3 ML VIAL.NEB. NEB PRN ×3 (01:55→10:10)
[2017-10-04] MEDS: methylPREDNISolone NA SUCC 40 MG/1 ML VIAL IVPUSH SCH ×4 (03:22→20:48)
[2017-10-04] MEDS: ALBUTEROL SO4 2.5/IPRATROPIUM 0.5 INH SOL 3 ML VIAL.NEB. NEB SCH ×5 (08:10→22:13)
[2017-10-04 08:52] LABS: BLOOD UREA NITROGEN 18 mg/dl (7-18); CREATININE 0.9 mg/dl (0.6-1.3); GLUCOSE,RANDOM 272 mg/dl (74-106)
[2017-10-04 08:53] LABS: ALBUMIN 3.4 g/dl (3.5-5.0); ALK PHOS 111 U/L (32-92); ANION GAP 12 (8-16); CALCIUM 8.2 mg/dl (8.4-10.2); CHLORIDE 104 mmol/L (98-107); CO2 23 mmol/L (22-28); MAGNESIUM 2.1 mg/dL (1.8-2.4); PHOSPHOROUS 2.7 mg/dl (2.5-4.6); SGOT/AST 31 U/L (10-42); SGPT/ALT 41 U/L (10-40); SODIUM 139 mmol/L (136-145); TOT PROT 6.4 g/dl (6.4-8.3)
[2017-10-04 09:20] LABS: BILIRUBIN,TOTAL < 0.5 mg/dl (0.2-1.0)
[2017-10-04] MEDS: CEFTRIAXONE 1 G/50 ML PREMIX 50 ML IVPB SCH (10:00)
[2017-10-04] MEDS: BUDESONIDE/FORMETEROL FUMARATE 80/4.5 mcg INHALER IH SCH ×2 (10:00→22:15)
[2017-10-04 10:24] LABS: HEMATOCRIT 37.9 % (32.4-45.2); HEMOGLOBIN 12.8 GM/dl (10.7-15.3); LYMPH % 7.8 % (8-40); MCH 29.1 pg (25.7-33.7); MCHC 33.8 g/dl (32.0-36.0); MEAN CELL VOLUME 86.1 fl (80-96); MEAN PLT VOLUME 7.8 fl (7.5-11.1); NEUT % 89.2 % (42.8-82.8); PLATELET COUNT 243 K/MM3 (134-434); RDW 14.3 % (11.6-15.6); WHITE BLOOD COUNT 7.8 K/mm3 (4.0-10.8)
[2017-10-04] MEDS: LOSARTAN POTASSIUM 50 MG TABLET (FP) PO SCH (10:48)
[2017-10-04] MEDS: FAMOTIDINE 20 MG TABLET PO SCH ×2 (10:49→22:15)
--- NOTE | 2017-10-04 12:01 | PN ---
Physical Exam: SUBJECTIVE: Patient seen and examined, She reports ongoing cough, denies any chest pain, patient does report dyspnea upon exertion OBJECTIVE: Patient is a 62 y/o female with a past medical history of hypertension, diastolic dysfunction, bipolar disorder, and restless leg syndrome. patient was admitted from the emergency department for acute asthma exacerbation Vital Signs Period Temp Pulse Resp BP Sys/Jasso Pulse Ox Last 24 Hr 97.8 F-98.4 F 72-95 19-22 130-162/62-66 94-96 GENERAL: The patient is awake, alert, and fully oriented, in no acute distress. HEAD: Normal with no signs of trauma. EYES: PERRL, extraocular movements intact, sclera anicteric, conjunctiva clear. No ptosis. ENT: Ears normal, nares patent, oropharynx clear without exudates, moist mucous membranes. NECK: Trachea midline, full range of motion, supple. LUNGS: Breath sounds equal, bilateral inspiratory wheeze with coarse rhonchi, no crackles, no accessory muscle use. HEART: Regular rate and rhythm, S1, S2 without murmur, rub or gallop. ABDOMEN: Soft, nontender, nondistended, normoactive bowel sounds, no guarding, no rebound, no hepatosplenomegaly, no masses. EXTREMITIES: 2+ pulses, warm, well-perfused, no edema. NEUROLOGICAL: Cranial nerves II through XII grossly intact. Normal speech, gait not observed.A PSYCH: Normal mood, normal affect. SKIN: Warm, dry, normal turgor, no rashes or lesions noted Laboratory Results - last 24 hr 10/03/17 10/03/17 10/03/17 12:00 12:00 12:00 WBC 6.2 RBC 4.89 Hgb 13.9 Hct 42.2 MCV 86.3 MCH 28.4 MCHC 32.9 RDW 14.1 Plt Count 253 MPV 7.8 Neutrophils % 63.2 Lymphocytes % 21.9 Monocytes % 12.8 H Eosinophils % 1.6 Basophils % 0.5 Sodium 136 Potassium 3.9 Chloride 103 Carbon Dioxide 28 Anion Gap 5 L BUN 18 Creatinine 0.8 Creat Clearance w eGFR > 60 Random Glucose 102 Calcium 8.5 Phosphorus Magnesium Total Bilirubin < 0.5 AST 24 ALT 39 D Alkaline Phosphatase 110 H Creatine Kinase 117 Troponin I < 0.03 B-Natriuretic Peptide 57.34 Total Protein 6.6 Albumin 3.6 10/04/17 10/04/17 07:45 07:45 WBC 7.8 RBC 4.40 Hgb 12.8 Hct 37.9 MCV 86.1 MCH 29.1 MCHC 33.8 RDW 14.3 Plt Count 243 MPV 7.8 Neutrophils % 89.2 H Lymphocytes % 7.8 L Monocytes % 3.0 L Eosinophils % 0.0 Basophils % 0.0 Sodium 139 Potassium 4.0 Chloride 104 Carbon Dioxide 23 Anion Gap 12 BUN 18 Creatinine 0.9 Creat Clearance w eGFR > 60 Random Glucose 272 H D Calcium 8.2 L Phosphorus 2.7 D Magnesium 2.1 Total Bilirubin < 0.5 AST 31 D ALT 41 H Alkaline Phosphatase 111 H Creatine Kinase Troponin I B-Natriuretic Peptide Total Protein 6.4 Albumin 3.4 L Active Medications Generic Name Dose Route Start Last Admin Trade Name Freq PRN Reason Stop Dose Admin Acetaminophen 650 mg 10/03/17 13:56 Tylenol - PO Q4H PRN FEVER Albuterol Sulfate 1 amp 10/03/17 16:25 10/04/17 10:10 Ventolin 0.083% Nebulizer Soln - NEB 1 amp Q1H PRN Administration SHORT OF BREATH/WHEEZING Albuterol/Ipratropium 1 amp 10/03/17 16:00 10/04/17 11:59 Duoneb - NEB Not Given RQID OTONIEL Budesonide/Formoterol Fumarate 2 puff 10/03/17 14:00 10/03/17 22:22 Symbicort 80/4.5mcg - IH 2 puff BID OTONIEL Administration Clonazepam 5 mg 10/03/17 22:00 10/03/17 21:40 Klonopin - PO 5 mg HS OTONIEL Administration Famotidine 20 mg 10/03/17 22:00 10/04/17 10:49 Pepcid - PO 20 mg BID OTONIEL Administration Ceftriaxone Sodium 50 mls @ 200 mls/hr 10/04/17 10:00 Ceftriaxone 1 Gm-D5w Bag IVPB DAILY OTONIEL Protocol Lamotrigine 75 mg 10/03/17 22:00 10/03/17 21:41 Lamictal - PO 75 mg HS OTONIEL Administration Lamotrigine 200 mg 10/04/17 08:57 Lamictal - PO HS OTONIEL Losartan Potassium 50 mg 10/04/17 10:00 10/04/17 10:48 Cozaar - PO 50 mg DAILY OTONIEL Administration Methylprednisolone Sodium Succinate 40 mg 10/03/17 14:15 10/04/17 09:00 Solu-Medrol - IVPUSH 40 mg Q6H-IV OTONIEL Administration Pramipexole Dihydrochloride 1 mg 10/03/17 22:00 10/03/17 21:41 Mirapex - PO 1 mg HS OTONIEL Administration Rosuvastatin Calcium 5 mg 10/03/17 22:00 10/03/17 21:41 Crestor - PO 5 mg HS OTONIEL Administration Verapamil HCl 120 mg 10/03/17 22:00 10/03/17 21:42 Calan Sr - PO 120 mg HS OTONIEL Administration iimaging CTA of chest: no obvious central pulmonary ambulance no evidence of pneumonia ASSESSMENT/PLAN: 1) pulm asthma exacerbation - Wheezing noted on exam, continue Solu-Medrol 40 mg every 6 hours - continue Symbicort and standing duonebs with albuterol when necessary. - peak flow - keep spod2 above 92% with supplemental O2 - appreciate pulmonary consulted and following 2) cardiovascular hypertension - continue loosartan, b/p at goal hyperlipidemia - continue crestor 3) neuro RLS - continue mirapex 4) psych bipolar disorder - continue lamictal and klonopin home doses f/e/n - low sodium diet - replete lytes prn ppx - pepcid - heparin dispo: pt requires observation admission Visit type - Emergency Visit Emergency Visit: Yes ED Registration Date: 10/03/17 Care time: The patient presented to the Emergency Department on the above date and was hospitalized for further evaluation of their emergent condition. - New Patient This patient is new to me today: No - Critical Care Critical Care patient: No - Discharge Referral Referred to [facility] Med P.C.: No
[2017-10-04] MEDS ORDERED: ALPRAZolam 0.25 MG TABLET PO ONE (13:27)
--- NOTE | 2017-10-04 16:21 | EKG ---
Test Reason : Blood Pressure : / mmHG Vent. Rate : 074 BPM Atrial Rate : 074 BPM P-R Int : 146 ms QRS Dur : 090 ms QT Int : 392 ms P-R-T Axes : 052 -01 033 degrees QTc Int : 435 ms NORMAL SINUS RHYTHM MINIMAL VOLTAGE CRITERIA FOR LVH, MAY BE NORMAL VARIANT INFERIOR INFARCT (CITED ON OR BEFORE 30-JUN-2016) ABNORMAL ECG WHEN COMPARED WITH ECG OF 30-JUN-2016 16:23, NONSPECIFIC T WAVE ABNORMALITY, IMPROVED IN LATERAL LEADS Confirmed by MD Jacobo, Trey ([id number]) on 10/04/2017 4:21:04 PM Referred By: YULIET Confirmed By:Trey Centeno MD
[2017-10-04] MEDS ORDERED: PT OWN MED DRAWER 7, Y5N ONE (21:09)
[2017-10-04] MEDS: VERAPAMIL HCL 120 MG E.R. TABLET PO SCH (22:14)
[2017-10-04] MEDS: lamoTRIgine 100 MG TABLET (FP) PO SCH (22:14)
[2017-10-04] MEDS: lamoTRIgine 25 MG TABLET PO SCH (22:15)
[2017-10-04] MEDS: clonazePAM 0.5 MG TABLET PO SCH (22:15)
[2017-10-04] MEDS: ROSUVASTATIN CA 5 MG TABLET (FP) PO SCH (22:15)
[2017-10-04] MEDS: PRAMIPEXOLE DIHYDROCHLORIDE 1 MG TABLET PO SCH (23:09)
[2017-10-05] MEDS: ALBUTEROL SO4 0.083% IH SOL 2.5 MG/3 ML VIAL.NEB. NEB PRN ×2 (02:01→03:03)
[2017-10-05] MEDS: methylPREDNISolone NA SUCC 40 MG/1 ML VIAL IVPUSH SCH ×5 (02:02→21:57)
[2017-10-05] MEDS: ALBUTEROL SO4 2.5/IPRATROPIUM 0.5 INH SOL 3 ML VIAL.NEB. NEB SCH ×4 (08:30→20:10)
[2017-10-05 09:25] LABS: HEMATOCRIT 36.8 % (32.4-45.2); HEMOGLOBIN 12.8 GM/dl (10.7-15.3); MCH 29.8 pg (25.7-33.7); MCHC 34.8 g/dl (32.0-36.0); MEAN CELL VOLUME 85.7 fl (80-96); MEAN PLT VOLUME 7.8 fl (7.5-11.1); PLATELET COUNT 258 K/MM3 (134-434); RBC 4.29 M/mm3 (3.60-5.2); RDW 14.3 % (11.6-15.6); WHITE BLOOD COUNT 13.9 K/mm3 (4.0-10.8)
[2017-10-05 09:30] LABS: ADD RBC MORPHOLOGY YES
[2017-10-05 09:41] LABS: ALBUMIN 3.4 g/dl (3.5-5.0); ALK PHOS 102 U/L (32-92); ANION GAP 8 (8-16); BILIRUBIN,TOTAL 0.1 mg/dl (0.2-1.0); BLOOD UREA NITROGEN 21 mg/dl (7-18); CALCIUM 8.5 mg/dl (8.4-10.2); CHLORIDE 105 mmol/L (98-107); CO2 25 mmol/L (22-28); CREATININE 0.8 mg/dl (0.6-1.3); GLUCOSE,RANDOM 203 mg/dl (74-106); MAGNESIUM 2.1 mg/dL (1.8-2.4); PHOSPHOROUS 3.7 mg/dl (2.5-4.6); POTASSIUM 4.3 mmol/L (3.5-5.1); SGOT/AST 21 U/L (10-42); SGPT/ALT 39 U/L (10-40); SODIUM 138 mmol/L (136-145); TOT PROT 6.2 g/dl (6.4-8.3)
[2017-10-05] MEDS: CEFTRIAXONE 1 G/50 ML PREMIX 50 ML IVPB SCH (09:44)
[2017-10-05] MEDS: LOSARTAN POTASSIUM 50 MG TABLET (FP) PO SCH (09:44)
[2017-10-05] MEDS: BUDESONIDE/FORMETEROL FUMARATE 80/4.5 mcg INHALER IH SCH ×2 (09:44→22:07)
[2017-10-05] MEDS: FAMOTIDINE 20 MG TABLET PO SCH ×2 (09:44→22:00)
[2017-10-05 11:30] LABS: PLATELET ESTIMATE ADEQUATE
--- NOTE | 2017-10-05 12:19 | PN ---
Physical Exam: SUBJECTIVE: Patient seen and examined, ambulatory at bedside, reports decrease of dyspnea upon exertion OBJECTIVE:Patient is a 62 y/o female with a past medical history of hypertension , diastolic dysfunction, bipolar disorder, and restless leg syndrome. patient was admitted from the emergency department for acute asthma exacerbation Vital Signs Period Temp Pulse Resp BP Sys/Jasso Pulse Ox Last 24 Hr 97.5 F-98.6 F 73-100 19-20 121-144/42-64 94-96 GENERAL: The patient is awake, alert, and fully oriented, in no acute distress. HEAD: Normal with no signs of trauma. EYES: PERRL, extraocular movements intact, sclera anicteric, conjunctiva clear. No ptosis. ENT: Ears normal, nares patent, oropharynx clear without exudates, moist mucous membranes. NECK: Trachea midline, full range of motion, supple. LUNGS: Breath sounds equal, mild inspiratory wheeze, decreased to bases, no crackles, no accessory muscle use. HEART: Regular rate and rhythm, S1, S2 without murmur, rub or gallop. ABDOMEN: Soft, nontender, nondistended, normoactive bowel sounds, no guarding, no rebound, no hepatosplenomegaly, no masses. EXTREMITIES: 2+ pulses, warm, well-perfused, no edema. NEUROLOGICAL: Cranial nerves II through XII grossly intact. Normal speech, gait not observed. PSYCH: Normal mood, normal affect. SKIN: Warm, dry, normal turgor, no rashes or lesions noted Laboratory Results - last 24 hr 10/05/17 10/05/17 07:40 07:40 WBC 13.9 H D RBC 4.29 Hgb 12.8 Hct 36.8 MCV 85.7 MCH 29.8 MCHC 34.8 RDW 14.3 Plt Count 258 MPV 7.8 Neutrophils % No Result Required. Neutrophils % (Manual) 83.0 H Lymphocytes % No Result Required. Lymphocytes % (Manual) 9.0 Monocytes % (Manual) 8 Platelet Estimate Adequate Sodium 138 Potassium 4.3 Chloride 105 Carbon Dioxide 25 Anion Gap 8 BUN 21 H Creatinine 0.8 Creat Clearance w eGFR > 60 Random Glucose 203 H D Calcium 8.5 Phosphorus 3.7 D Magnesium 2.1 Total Bilirubin 0.1 L D AST 21 D ALT 39 Alkaline Phosphatase 102 H Total Protein 6.2 L Albumin 3.4 L Active Medications Generic Name Dose Route Start Last Admin Trade Name Freq PRN Reason Stop Dose Admin Acetaminophen 650 mg 10/03/17 13:56 Tylenol - PO Q4H PRN FEVER Albuterol Sulfate 1 amp 10/03/17 16:25 10/05/17 03:03 Ventolin 0.083% Nebulizer Soln - NEB 1 amp Q1H PRN Administration SHORT OF BREATH/WHEEZING Albuterol/Ipratropium 1 amp 10/03/17 16:00 10/05/17 08:30 Duoneb - NEB 1 amp RQID OTONIEL Administration Budesonide/Formoterol Fumarate 2 puff 10/03/17 14:00 10/05/17 09:44 Symbicort 80/4.5mcg - IH 2 puff BID OTONIEL Administration Clonazepam 5 mg 10/03/17 22:00 10/04/17 22:15 Klonopin - PO 5 mg HS OTONIEL Administration Famotidine 20 mg 10/03/17 22:00 10/05/17 09:44 Pepcid - PO 20 mg BID OTONIEL Administration Ceftriaxone Sodium 50 mls @ 200 mls/hr 10/04/17 10:00 10/05/17 09:44 Ceftriaxone 1 Gm-D5w Bag IVPB 200 mls/hr DAILY OTONIEL Administration Protocol Lamotrigine 75 mg 10/03/17 22:00 10/04/17 22:15 Lamictal - PO 75 mg HS OTONIEL Administration Lamotrigine 200 mg 10/04/17 08:57 10/04/17 22:14 Lamictal - PO 200 mg HS OTONIEL Administration Losartan Potassium 50 mg 10/04/17 10:00 10/05/17 09:44 Cozaar - PO 50 mg DAILY OTONIEL Administration Methylprednisolone Sodium Succinate 40 mg 10/03/17 14:15 10/05/17 09:46 Solu-Medrol - IVPUSH Not Given Q6H-IV OTONIEL Pramipexole Dihydrochloride 1 mg 10/03/17 22:00 10/04/17 23:09 Mirapex - PO 1 mg HS OTONIEL Administration Rosuvastatin Calcium 5 mg 10/03/17 22:00 10/04/17 22:15 Crestor - PO 5 mg HS OTONIEL Administration Verapamil HCl 120 mg 10/03/17 22:00 10/04/17 22:14 Calan Sr - PO 120 mg HS OTONIEL Administration imaging CTA of chest: no obvious central pulmonary ambulance no evidence of pneumonia ASSESSMENT/PLAN: 1) pulm asthma exacerbation - continue Solu-Medrol 40 mg every 6 hours, Symbicort and standing duonebs with albuterol when necessary. - peak flow - robitusin ac - keep spod2 above 92% with supplemental O2 - pulmonary consulted and following 2) cardiovascular hypertension - continue loosartan, b/p at goal hyperlipidemia - continue crestor 3) neuro RLS - continue mirapex 4) psych bipolar disorder - continue lamictal and klonopin home doses f/e/n - low sodium diet - replete lytes prn ppx - protonix - heparin dispo: pt requires observation admission Visit type - Emergency Visit Emergency Visit: Yes ED Registration Date: 10/05/17 Care time: The patient presented to the Emergency Department on the above date and was hospitalized for further evaluation of their emergent condition. - New Patient This patient is new to me today: No - Critical Care Critical Care patient: No - Discharge Referral Referred to [facility] Med P.C.: No
--- NOTE | 2017-10-05 12:50 | PN ---
Progress Note (short form) - Note Progress Note: PULMONARY PEAK FLOW 100L/M VSS/AFEBRILE IMPROVING WHEEZING CONTINUES S1S2 BS+ SOFT NO EDEMA LABS/MEDS/CT CHEST/ REVIEWED ACUTE ASTHMATIC EXACERBATION LIKELY DUE TO ACUTE BRONCHITIS NO CT EVIDENCE TO SUGGEST PNEUMONIA MULTIPLE CO-MORBID CONDITIONS NOTED O2 TO KEEP SAT GREATER THAN 90% HOOD/LABA/LAMA/ICS/IV STEROIDS/SINGULAIR EMIRIC ANTIBIOTIC COVERAGE DAILY PEAK FLOW Robin POLLARD MD Problem List - Problems (1) Asthma Code(s): J45.909 - UNSPECIFIED ASTHMA, UNCOMPLICATED Qualifiers: Asthma severity: mild Asthma persistence: unspecified Asthma complication type: with acute exacerbation Qualified Code(s): J45.901 - Unspecified asthma with (acute) exacerbation (2) Acute asthma exacerbation Code(s): J45.901 - UNSPECIFIED ASTHMA WITH (ACUTE) EXACERBATION Qualifiers: Asthma severity: mild Asthma persistence: intermittent Qualified Code(s) : J45.21 - Mild intermittent asthma with (acute) exacerbation (3) COPD with acute bronchitis Code(s): J44.0 - CHRONIC OBSTRUCTIVE PULMON DISEASE W ACUTE LOWER RESP INFCT (4) Cough Code(s): R05 - COUGH
[2017-10-05] MEDS ORDERED: diphenhydrAMINE HCL 25 MG CAPSULE (FP) PO PRN (12:53)
[2017-10-05 13:54] LABS: PH,URINE 5.5 (4.5-8); URINE APPEARANCE Clear; URINE BILIRUBIN Negative (NEGATIVE); URINE GLUCOSE (UA) 2+ (NEGATIVE); URINE KETONE Trace (NEGATIVE); URINE LEUK ESTERASE Negative (NEGATIVE); URINE NITRITE Negative (NEGATIVE); URINE UROBILINOGEN 0.2 (0.2-1.0)
[2017-10-05 13:55] LABS: URINE PROTEIN 1+ (NEGATIVE)
[2017-10-05 13:56] LABS: URINE COLOR AMBER
[2017-10-05] MEDS: PANTOPRAZOLE 40 MG TABLET (FP) PO SCH (15:39)
[2017-10-05 16:07] LABS: EPI CELLS RARE /HPF; URINE BACTERIA FEW /hpf (NEGATIVE); URINE RBC 0-2 /hpf (0-3); URINE WBC 0-1 (0-5)
[2017-10-05] MEDS ORDERED: PT OWN MED DRAWER 7, Y5N ONE (21:08)
[2017-10-05] MEDS: PRAMIPEXOLE DIHYDROCHLORIDE 1 MG TABLET PO SCH (21:58)
[2017-10-05] MEDS: lamoTRIgine 100 MG TABLET (FP) PO SCH (21:59)
[2017-10-05] MEDS: MONTELUKAST NA 10 MG TABLET PO SCH (22:00)
[2017-10-05] MEDS: ROSUVASTATIN CA 5 MG TABLET (FP) PO SCH (22:00)
[2017-10-05] MEDS: VERAPAMIL HCL 120 MG E.R. TABLET PO SCH (22:01)
[2017-10-05] MEDS: lamoTRIgine 25 MG TABLET PO SCH (22:02)
[2017-10-05] MEDS: clonazePAM 0.5 MG TABLET PO SCH (22:02)
[2017-10-06] MEDS: methylPREDNISolone NA SUCC 40 MG/1 ML VIAL IVPUSH SCH ×4 (02:18→22:45)
[2017-10-06] MEDS: ALBUTEROL SO4 0.083% IH SOL 2.5 MG/3 ML VIAL.NEB. NEB PRN (02:18)
[2017-10-06] MEDS: guaiFENesin/CODEINE 10 ML UNIT-DOSE CUPS PO PRN ×3 (02:55→23:33)
[2017-10-06] MEDS: ALBUTEROL SO4 2.5/IPRATROPIUM 0.5 INH SOL 3 ML VIAL.NEB. NEB SCH (08:10)
[2017-10-06] MEDS: FAMOTIDINE 20 MG TABLET PO SCH ×2 (10:20→22:47)
[2017-10-06] MEDS: LOSARTAN POTASSIUM 50 MG TABLET (FP) PO SCH (10:20)
[2017-10-06] MEDS: CEFTRIAXONE 1 G/50 ML PREMIX 50 ML IVPB SCH (10:20)
[2017-10-06] MEDS: PANTOPRAZOLE 40 MG TABLET (FP) PO SCH (10:21)
[2017-10-06] MEDS: BUDESONIDE/FORMETEROL FUMARATE 80/4.5 mcg INHALER IH SCH (10:21)
--- NOTE | 2017-10-06 10:51 | PN ---
Progress Note, Physician History of Present Illness: PULMONARY ALERT,STILL DYSPNEIC,+ COUGH,+ CHEST TIGHTNESS - Current Medication List Current Medications: Active Medications Acetaminophen (Tylenol -) 650 mg PO Q4H PRN PRN Reason: FEVER Albuterol Sulfate (Ventolin 0.083% Nebulizer Soln -) 1 amp NEB Q1H PRN PRN Reason: SHORT OF BREATH/WHEEZING Last Admin: 10/06/17 02:18 Dose: 1 amp Albuterol/Ipratropium (Duoneb -) 1 amp NEB RQID OTONIEL Last Admin: 10/06/17 08:10 Dose: 1 amp Budesonide/Formoterol Fumarate (Symbicort 80/4.5mcg -) 2 puff IH BID OTONIEL Last Admin: 10/06/17 10:21 Dose: 2 puff Clonazepam (Klonopin -) 5 mg PO HS [facility] Last Admin: 10/05/17 22:02 Dose: 5 mg Diphenhydramine HCl (Benadryl -) 25 mg PO HS PRN PRN Reason: INSOMNIA Last Admin: 10/05/17 22:50 Dose: 25 mg Famotidine (Pepcid -) 20 mg PO BID OTONIEL Last Admin: 10/06/17 10:20 Dose: 20 mg Guaifenesin/Codeine Phosphate (Robitussin Ac -) 10 ml PO Q8H PRN PRN Reason: COUGH Last Admin: 10/06/17 02:55 Dose: 10 ml Ceftriaxone Sodium (Ceftriaxone 1 Gm-D5w Bag) 50 mls @ 200 mls/hr IVPB DAILY [facility]; Protocol Last Admin: 10/06/17 10:20 Dose: 200 mls/hr Lamotrigine (Lamictal -) 75 mg PO HS [facility] Last Admin: 10/05/17 22:02 Dose: 75 mg Lamotrigine (Lamictal -) 200 mg PO HS [facility] Last Admin: 10/05/17 21:59 Dose: 200 mg Losartan Potassium (Cozaar -) 50 mg PO DAILY OTONIEL Last Admin: 10/06/17 10:20 Dose: 50 mg Methylprednisolone Sodium Succinate (Solu-Medrol -) 40 mg IVPUSH Q6H-IV OTONIEL Last Admin: 10/06/17 08:45 Dose: 40 mg Montelukast Sodium (Singulair -) 10 mg PO HS [facility] Last Admin: 10/05/17 22:00 Dose: 10 mg Pantoprazole Sodium (Protonix -) 40 mg PO DAILY [facility] Last Admin: 10/06/17 10:21 Dose: 40 mg Pramipexole Dihydrochloride (Mirapex -) 1 mg PO [facility] Last Admin: 10/05/17 21:58 Dose: 1 mg Rosuvastatin Calcium (Crestor -) 5 mg PO [facility] Last Admin: 10/05/17 22:00 Dose: 5 mg Verapamil HCl (Calan Sr -) 120 mg PO [facility] Last Admin: 10/05/17 22:01 Dose: 120 mg - Objective Vital Signs: Vital Signs Temperature 98.0 F 10/06/17 05:23 Pulse Rate 96 H 10/06/17 05:23 Respiratory Rate 18 10/06/17 05:23 Blood Pressure 132/61 10/06/17 05:23 O2 Sat by Pulse Oximetry (%) 99 10/06/17 08:40 Constitutional: Yes: Well Nourished, Calm Eyes: Yes: WNL HENT: Yes: WNL Neck: Yes: WNL Cardiovascular: Yes: Regular Rate and Rhythm Respiratory: Yes: Wheezes (SCATTERED CARINE WHEEZES) Gastrointestinal: Yes: Normal Bowel Sounds, Soft Extremities: Yes: WNL Edema: No Labs: CBC, BMP Assessment/Plan ACUTE ASTHMATIC EXACERBATION LIKELY DUE TO ACUTE BRONCHITIS NO CT EVIDENCE TO SUGGEST PNEUMONIA HTN BIPOLAR RESTLESS LEGS O2 TO KEEP SAT GREATER THAN 90% LABA/LAMA/ICS IV STEROIDS SINGULAIR EMPIRIC ANTIBIOTIC COVERAGE DAILY PEAK FLOW DR EMERSON Problem List - Problems (1) Asthma Code(s): J45.909 - UNSPECIFIED ASTHMA, UNCOMPLICATED Qualifiers: Asthma severity: mild Asthma persistence: unspecified Asthma complication type: with acute exacerbation Qualified Code(s): J45.901 - Unspecified asthma with (acute) exacerbation (2) Acute asthma exacerbation Code(s): J45.901 - UNSPECIFIED ASTHMA WITH (ACUTE) EXACERBATION Qualifiers: Asthma severity: mild Asthma persistence: intermittent Qualified Code(s) : J45.21 - Mild intermittent asthma with (acute) exacerbation (3) COPD with acute bronchitis Code(s): J44.0 - CHRONIC OBSTRUCTIVE PULMON DISEASE W ACUTE LOWER RESP INFCT (4) Cough Code(s): R05 - COUGH
[2017-10-06] MEDS ORDERED: ALBUTEROL SO4 0.083% IH SOL 2.5 MG/3 ML VIAL.NEB. NEB PRN (10:53)
[2017-10-06] MEDS ORDERED: TIOTROPIUM BROMIDE 18 MCG CAPSULES IH SCH (11:00)
[2017-10-06] MEDS ORDERED: BUDESONIDE/FORMETEROL FUMARATE 160/4.5 mcg INHALER IH SCH (11:00)
--- NOTE | 2017-10-06 11:02 | PN ---
Physical Exam: SUBJECTIVE: Patient seen and examined, patient is ambulatory at bedside denies any chest pain, patient does report dyspnea upon exertion. OBJECTIVE:Patient is a 62 y/o female with a past medical history of hypertension , diastolic dysfunction, bipolar disorder, and restless leg syndrome. patient was admitted from the emergency department for acute asthma exacerbation Vital Signs Period Temp Pulse Resp BP Sys/Jasso Pulse Ox Last 24 Hr 97.5 F-98.4 F 96-112 16-19 132-152/60-92 94-99 GENERAL: The patient is awake, alert, and fully oriented, in no acute distress. HEAD: Normal with no signs of trauma. EYES: PERRL, extraocular movements intact, sclera anicteric, conjunctiva clear. No ptosis. ENT: Ears normal, nares patent, oropharynx clear without exudates, moist mucous membranes. NECK: Trachea midline, full range of motion, supple. LUNGS: Breath sounds equal, mild inspiratory wheeze, much improved, decreased to bases, no crackles, no accessory muscle use. HEART: Regular rate and rhythm, S1, S2 without murmur, rub or gallop. ABDOMEN: Soft, nontender, nondistended, normoactive bowel sounds, no guarding, no rebound, no hepatosplenomegaly, no masses. EXTREMITIES: 2+ pulses, warm, well-perfused, no edema. NEUROLOGICAL: Cranial nerves II through XII grossly intact. Normal speech, gait not observed. PSYCH: Normal mood, normal affect. SKIN: Warm, dry, normal turgor, no rashes or lesions noted Laboratory Results - last 24 hr 10/05/17 10/05/17 07:40 13:25 Neutrophils % (Manual) 83.0 H Lymphocytes % (Manual) 9.0 Monocytes % (Manual) 8 Platelet Estimate Adequate Urine Color Ramila Urine Appearance Clear Urine pH 5.5 Ur Specific [place] 1.025 Urine Protein 1+ H Urine Glucose (UA) 2+ H Urine Ketones Trace Urine Blood Negative Urine Nitrite Negative Urine Bilirubin Negative Urine Urobilinogen 0.2 Ur Leukocyte Esterase Negative Urine RBC 0-2 Urine WBC 0-1 Ur Epithelial Cells Rare Urine Bacteria Few Active Medications Generic Name Dose Route Start Last Admin Trade Name Freq PRN Reason Stop Dose Admin Acetaminophen 650 mg 10/03/17 13:56 Tylenol - PO Q4H PRN FEVER Albuterol Sulfate 1 amp 10/06/17 10:53 Ventolin 0.083% Nebulizer Soln - NEB Q4H PRN SHORT OF BREATH/WHEEZING Budesonide/Formoterol Fumarate 2 puff 10/06/17 11:00 Symbicort 160/4.5mcg - IH BID OTONIEL Clonazepam 5 mg 10/03/17 22:00 10/05/17 22:02 Klonopin - PO 5 mg HS OTONIEL Administration Diphenhydramine HCl 25 mg 10/05/17 12:53 10/05/17 22:50 Benadryl - PO 25 mg HS PRN Administration INSOMNIA Famotidine 20 mg 10/03/17 22:00 10/06/17 10:20 Pepcid - PO 20 mg BID OTONIEL Administration Guaifenesin/Codeine Phosphate 10 ml 10/05/17 12:16 10/06/17 02:55 Robitussin Ac - PO 10 ml Q8H PRN Administration COUGH Ceftriaxone Sodium 50 mls @ 200 mls/hr 10/04/17 10:00 10/06/17 10:20 Ceftriaxone 1 Gm-D5w Bag IVPB 200 mls/hr DAILY OTONIEL Administration Protocol Lamotrigine 75 mg 10/03/17 22:00 10/05/17 22:02 Lamictal - PO 75 mg HS OTONIEL Administration Lamotrigine 200 mg 10/04/17 08:57 10/05/17 21:59 Lamictal - PO 200 mg HS OTONIEL Administration Losartan Potassium 50 mg 10/04/17 10:00 10/06/17 10:20 Cozaar - PO 50 mg DAILY OTONIEL Administration Methylprednisolone Sodium Succinate 40 mg 10/03/17 14:15 10/06/17 08:45 Solu-Medrol - IVPUSH 40 mg Q6H-IV OTONIEL Administration Montelukast Sodium 10 mg 10/05/17 22:00 10/05/17 22:00 Singulair - PO 10 mg HS OTONIEL Administration Pantoprazole Sodium 40 mg 10/05/17 15:00 10/06/17 10:21 Protonix - PO 40 mg DAILY OTONIEL Administration Pramipexole Dihydrochloride 1 mg 10/03/17 22:00 10/05/17 21:58 Mirapex - PO 1 mg HS OTONIEL Administration Rosuvastatin Calcium 5 mg 10/03/17 22:00 10/05/17 22:00 Crestor - PO 5 mg HS OTONIEL Administration Tiotropium [place] 1 puff 10/06/17 11:00 Spiriva - IH DAILY OTONIEL Verapamil HCl 120 mg 10/03/17 22:00 10/05/17 22:01 Calan Sr - PO 120 mg HS OTONIEL Administration imaging CTA of chest: no obvious central pulmonary ambulance no evidence of pneumonia ASSESSMENT/PLAN: 1) pulm asthma exacerbation - continue Solu-Medrol 40 mg every 6 hours, Symbicort and standing duonebs with albuterol when necessary. - peak flow 250--> 10/05/17, repeat peak flow today, pre and post oxygen spo2 95 % after flat surface walking - keep spod2 above 92% with supplemental O2 - pulmonary consulted and following 2) cardiovascular hypertension - continue loosartan, b/p at goal hyperlipidemia - continue crestor 3) neuro RLS - continue mirapex 4) heme/onc leukocytosis - pt afebrile, secondary to steroids, continue to monitor 4) psych bipolar disorder - continue lamictal and klonopin home doses f/e/n - low sodium diet - replete lytes prn ppx - protonix - heparin dispo: pt requires observation admission Visit type - Emergency Visit Emergency Visit: Yes ED Registration Date: 10/05/17 Care time: The patient presented to the Emergency Department on the above date and was hospitalized for further evaluation of their emergent condition. - New Patient This patient is new to me today: No - Critical Care Critical Care patient: No - Discharge Referral Referred to [facility] Med P.C.: No
[2017-10-06] MEDS: TIOTROPIUM BROMIDE 18 MCG CAPSULES IH SCH (12:35)
[2017-10-06] MEDS: BUDESONIDE/FORMETEROL FUMARATE 160/4.5 mcg INHALER IH SCH ×2 (12:35→22:48)
[2017-10-06] MEDS: VERAPAMIL HCL 120 MG E.R. TABLET PO SCH (22:45)
[2017-10-06] MEDS: lamoTRIgine 25 MG TABLET PO SCH (22:46)
[2017-10-06] MEDS: ROSUVASTATIN CA 5 MG TABLET (FP) PO SCH (22:46)
[2017-10-06] MEDS: lamoTRIgine 100 MG TABLET (FP) PO SCH (22:47)
[2017-10-06] MEDS: PRAMIPEXOLE DIHYDROCHLORIDE 1 MG TABLET PO SCH (22:47)
[2017-10-06] MEDS: MONTELUKAST NA 10 MG TABLET PO SCH (22:47)
[2017-10-06] MEDS: clonazePAM 0.5 MG TABLET PO SCH (23:33)
[2017-10-07] MEDS: methylPREDNISolone NA SUCC 40 MG/1 ML VIAL IVPUSH SCH ×2 (04:14→10:31)
[2017-10-07] MEDS: FAMOTIDINE 20 MG TABLET PO SCH ×2 (10:31→21:28)
[2017-10-07] MEDS: PANTOPRAZOLE 40 MG TABLET (FP) PO SCH (10:32)
[2017-10-07] MEDS: CEFTRIAXONE 1 G/50 ML PREMIX 50 ML IVPB SCH (10:32)
[2017-10-07] MEDS: LOSARTAN POTASSIUM 50 MG TABLET (FP) PO SCH (10:32)
[2017-10-07] MEDS: TIOTROPIUM BROMIDE 18 MCG CAPSULES IH SCH (10:32)
[2017-10-07] MEDS: BUDESONIDE/FORMETEROL FUMARATE 160/4.5 mcg INHALER IH SCH ×2 (10:33→21:51)
--- NOTE | 2017-10-07 10:38 | PN ---
Progress Note, Physician History of Present Illness: pulmonary alert,feeling better,dyspnea improved - Current Medication List Current Medications: Active Medications Acetaminophen (Tylenol -) 650 mg PO Q4H PRN PRN Reason: FEVER Albuterol Sulfate (Ventolin 0.083% Nebulizer Soln -) 1 amp NEB Q4H PRN PRN Reason: SHORT OF BREATH/WHEEZING Last Admin: 10/06/17 23:33 Dose: 1 amp Budesonide/Formoterol Fumarate (Symbicort 160/4.5mcg -) 2 puff IH BID [facility] Last Admin: 10/07/17 10:33 Dose: 2 puff Clonazepam (Klonopin -) 5 mg PO HS [facility] Last Admin: 10/06/17 23:33 Dose: 5 mg Diphenhydramine HCl (Benadryl -) 25 mg PO HS PRN PRN Reason: INSOMNIA Last Admin: 10/05/17 22:50 Dose: 25 mg Famotidine (Pepcid -) 20 mg PO BID [facility] Last Admin: 10/07/17 10:31 Dose: 20 mg Guaifenesin/Codeine Phosphate (Robitussin Ac -) 10 ml PO Q8H PRN PRN Reason: COUGH Last Admin: 10/06/17 23:33 Dose: 10 ml Ceftriaxone Sodium (Ceftriaxone 1 Gm-D5w Bag) 50 mls @ 200 mls/hr IVPB DAILY [facility]; Protocol Last Admin: 10/07/17 10:32 Dose: 200 mls/hr Lamotrigine (Lamictal -) 75 mg PO HS [facility] Last Admin: 10/06/17 22:46 Dose: 75 mg Lamotrigine (Lamictal -) 200 mg PO HS [facility] Last Admin: 10/06/17 22:47 Dose: 200 mg Losartan Potassium (Cozaar -) 50 mg PO DAILY [facility] Last Admin: 10/07/17 10:32 Dose: 50 mg Methylprednisolone Sodium Succinate (Solu-Medrol -) 40 mg IVPUSH TID [facility] Montelukast Sodium (Singulair -) 10 mg PO HS [facility] Last Admin: 10/06/17 22:47 Dose: 10 mg Pantoprazole Sodium (Protonix -) 40 mg PO DAILY [facility] Last Admin: 10/07/17 10:32 Dose: 40 mg Pramipexole Dihydrochloride (Mirapex -) 1 mg PO [facility] Last Admin: 10/06/17 22:47 Dose: 1 mg Rosuvastatin Calcium (Crestor -) 5 mg PO [facility] Last Admin: 10/06/17 22:46 Dose: 5 mg Tiotropium [place] (Spiriva -) 1 puff IH DAILY [facility] Last Admin: 10/07/17 10:32 Dose: 1 puff Verapamil HCl (Calan Sr -) 120 mg PO [facility] Last Admin: 10/06/17 22:45 Dose: 120 mg - Objective Vital Signs: Vital Signs Temperature 97.9 F 10/07/17 10:25 Pulse Rate 78 10/07/17 10:25 Respiratory Rate 16 10/07/17 10:25 Blood Pressure 154/76 10/07/17 10:25 O2 Sat by Pulse Oximetry (%) 94 L 10/07/17 06:35 Constitutional: Yes: Well Nourished, Calm Eyes: Yes: WNL HENT: Yes: WNL Neck: Yes: WNL Cardiovascular: Yes: Regular Rate and Rhythm, S1, S2 Respiratory: Yes: Diminished Gastrointestinal: Yes: Normal Bowel Sounds, Soft Extremities: Yes: WNL Edema: No Labs: CBC, BMP Assessment/Plan ACUTE ASTHMATIC EXACERBATION LIKELY DUE TO ACUTE BRONCHITIS NO CT EVIDENCE TO SUGGEST PNEUMONIA HTN BIPOLAR RESTLESS LEGS O2 TO KEEP SAT GREATER THAN 90% LABA/LAMA/ICS STEROID TAPER PREDNISONE IN AM SINGULAIR EMPIRIC ANTIBIOTIC COVERAGE DAILY PEAK FLOW DR EMERSON Problem List - Problems (1) Asthma Code(s): J45.909 - UNSPECIFIED ASTHMA, UNCOMPLICATED Qualifiers: Asthma severity: mild Asthma persistence: unspecified Asthma complication type: with acute exacerbation Qualified Code(s): J45.901 - Unspecified asthma with (acute) exacerbation (2) Acute asthma exacerbation Code(s): J45.901 - UNSPECIFIED ASTHMA WITH (ACUTE) EXACERBATION Qualifiers: Asthma severity: mild Asthma persistence: intermittent Qualified Code(s) : J45.21 - Mild intermittent asthma with (acute) exacerbation (3) COPD with acute bronchitis Code(s): J44.0 - CHRONIC OBSTRUCTIVE PULMON DISEASE W ACUTE LOWER RESP INFCT (4) Cough Code(s): R05 - COUGH
--- NOTE | 2017-10-07 11:44 | PN ---
Physical Exam: SUBJECTIVE: Patient seen and examined, patient is able to appetite denies any chest pain or shortness of breath reports an improvement of dyspnea on exertion OBJECTIVE: Patient is a 62 y/o female with a past medical history of hypertension, diastolic dysfunction, bipolar disorder, and restless leg syndrome. patient was admitted from the emergency department for acute asthma exacerbation Vital Signs Period Temp Pulse Resp BP Sys/Jasso Pulse Ox Last 24 Hr 97.8 F-98.0 F 74-84 16-20 149-159/73-78 93-95 GENERAL: The patient is awake, alert, and fully oriented, in no acute distress. HEAD: Normal with no signs of trauma. EYES: PERRL, extraocular movements intact, sclera anicteric, conjunctiva clear. No ptosis. ENT: Ears normal, nares patent, oropharynx clear without exudates, moist mucous membranes. NECK: Trachea midline, full range of motion, supple. LUNGS: Breath sounds equal, clear to auscultation bilaterally to apexes, diminished to base, no wheezes, no crackles, no accessory muscle use. HEART: Regular rate and rhythm, S1, S2 without murmur, rub or gallop. ABDOMEN: Soft, nontender, nondistended, normoactive bowel sounds, no guarding, no rebound, no hepatosplenomegaly, no masses. EXTREMITIES: 2+ pulses, warm, well-perfused, no edema. NEUROLOGICAL: Cranial nerves II through XII grossly intact. Normal speech, gait not observed. PSYCH: Normal mood, normal affect. SKIN: Warm, dry, normal turgor, no rashes or lesions noted Active Medications Generic Name Dose Route Start Last Admin Trade Name Freq PRN Reason Stop Dose Admin Acetaminophen 650 mg 10/03/17 13:56 Tylenol - PO Q4H PRN FEVER Albuterol Sulfate 1 amp 10/06/17 10:53 10/06/17 23:33 Ventolin 0.083% Nebulizer Soln - NEB 1 amp Q4H PRN Administration SHORT OF BREATH/WHEEZING Budesonide/Formoterol Fumarate 2 puff 10/06/17 12:30 10/07/17 10:33 Symbicort 160/4.5mcg - IH 2 puff BID OTONIEL Administration Clonazepam 5 mg 10/03/17 22:00 10/06/17 23:33 Klonopin - PO 5 mg HS OTONIEL Administration Diphenhydramine HCl 25 mg 10/05/17 12:53 10/05/17 22:50 Benadryl - PO 25 mg HS PRN Administration INSOMNIA Famotidine 20 mg 10/03/17 22:00 10/07/17 10:31 Pepcid - PO 20 mg BID OTONIEL Administration Guaifenesin/Codeine Phosphate 10 ml 10/05/17 12:16 10/06/17 23:33 Robitussin Ac - PO 10 ml Q8H PRN Administration COUGH Ceftriaxone Sodium 50 mls @ 200 mls/hr 10/04/17 10:00 10/07/17 10:32 Ceftriaxone 1 Gm-D5w Bag IVPB 200 mls/hr DAILY OTONIEL Administration Protocol Lamotrigine 75 mg 10/03/17 22:00 10/06/17 22:46 Lamictal - PO 75 mg HS OTONIEL Administration Lamotrigine 200 mg 10/04/17 08:57 10/06/17 22:47 Lamictal - PO 200 mg HS OTONIEL Administration Losartan Potassium 50 mg 10/04/17 10:00 10/07/17 10:32 Cozaar - PO 50 mg DAILY OTONIEL Administration Methylprednisolone Sodium Succinate 40 mg 10/07/17 22:00 Solu-Medrol - IVPUSH 10/07/17 23:00 BID OTONIEL Montelukast Sodium 10 mg 10/05/17 22:00 10/06/17 22:47 Singulair - PO 10 mg HS OTONIEL Administration Pantoprazole Sodium 40 mg 10/05/17 15:00 10/07/17 10:32 Protonix - PO 40 mg DAILY OTONIEL Administration Pramipexole Dihydrochloride 1 mg 10/03/17 22:00 10/06/17 22:47 Mirapex - PO 1 mg HS OTONIEL Administration Prednisone 60 mg 10/08/17 10:00 Deltasone - PO DAILY OTONIEL Rosuvastatin Calcium 5 mg 10/03/17 22:00 10/06/17 22:46 Crestor - PO 5 mg HS OTONIEL Administration Tiotropium [place] 1 puff 10/06/17 12:30 10/07/17 10:32 Spiriva - IH 1 puff DAILY OTONIEL Administration Verapamil HCl 120 mg 10/03/17 22:00 10/06/17 22:45 Calan Sr - PO 120 mg HS OTONIEL Administration imaging CTA of chest: no obvious central pulmonary ambulance no evidence of pneumonia ASSESSMENT/PLAN: 1) pulm asthma exacerbation - wheezing much improved will decrease Solu-Medrol to 40 mg 3 times a day and prednisone tomorrow in a.m. - keep spod2 above 92% with supplemental O2 - pulmonary consulted and following 2) cardiovascular hypertension - continue loosartan, b/p at goal hyperlipidemia - continue crestor 3) neuro RLS - continue mirapex 4) heme/onc leukocytosis - pt afebrile, secondary to steroids, continue to monitor 4) psych bipolar disorder - continue lamictal and klonopin home doses f/e/n - low sodium diet - replete lytes prn ppx - protonix - heparin dispo: pt requires observation admission Visit type - Emergency Visit Emergency Visit: Yes ED Registration Date: 10/05/17 Care time: The patient presented to the Emergency Department on the above date and was hospitalized for further evaluation of their emergent condition. - New Patient This patient is new to me today: No - Critical Care Critical Care patient: No - Discharge Referral Referred to [facility] Med P.C.: No
[2017-10-07 13:05] LABS: BASO % 2.3 % (0-2.0); HEMOGLOBIN 14.1 GM/dl (10.7-15.3); LYMPH % 10.3 % (8-40); MCH 28.5 pg (25.7-33.7); MCHC 33.6 g/dl (32.0-36.0); MEAN CELL VOLUME 84.8 fl (80-96); MEAN PLT VOLUME 7.4 fl (7.5-11.1); MONO % 5.4 % (3.8-10.2); PLATELET COUNT 336 K/MM3 (134-434); RBC 4.96 M/mm3 (3.60-5.2); RDW 13.9 % (11.6-15.6); WHITE BLOOD COUNT 13.8 K/mm3 (4.0-10.8)
[2017-10-07 13:25] LABS: ANION GAP 6 (8-16); BLOOD UREA NITROGEN 23 mg/dl (7-18); CALCIUM 8.3 mg/dl (8.4-10.2); CHLORIDE 103 mmol/L (98-107); CO2 26 mmol/L (22-28); CREATININE 0.9 mg/dl (0.6-1.3); GLUCOSE,RANDOM 211 mg/dl (74-106); MAGNESIUM 2.4 mg/dL (1.8-2.4); PHOSPHOROUS 3.6 mg/dl (2.5-4.6); POTASSIUM 4.1 mmol/L (3.5-5.1); SODIUM 135 mmol/L (136-145)
[2017-10-07] MEDS ORDERED: methylPREDNISolone NA SUCC 40 MG/1 ML VIAL IVPUSH SCH ×2 (14:00→22:00)
[2017-10-07] MEDS ORDERED: PT OWN MED DRAWER 7, Y5N ONE (21:05)
[2017-10-07] MEDS: VERAPAMIL HCL 120 MG E.R. TABLET PO SCH (21:27)
[2017-10-07] MEDS: ROSUVASTATIN CA 5 MG TABLET (FP) PO SCH (21:28)
[2017-10-07] MEDS: lamoTRIgine 100 MG TABLET (FP) PO SCH (21:28)
[2017-10-07] MEDS: MONTELUKAST NA 10 MG TABLET PO SCH (21:28)
[2017-10-07] MEDS: PRAMIPEXOLE DIHYDROCHLORIDE 1 MG TABLET PO SCH (21:31)
[2017-10-07] MEDS: lamoTRIgine 25 MG TABLET PO SCH (21:32)
[2017-10-07] MEDS: clonazePAM 0.5 MG TABLET PO SCH (21:33)
[2017-10-07] MEDS: guaiFENesin/CODEINE 10 ML UNIT-DOSE CUPS PO PRN (22:37)
[2017-10-08] MEDS: guaiFENesin/CODEINE 10 ML UNIT-DOSE CUPS PO PRN (06:36)
[2017-10-08 09:53] VITALS: BP 136/55; PULSE 75; TEMP 98.8
[2017-10-08] MEDS ORDERED: predniSONE 20 MG TABLET (UD) PO SCH (10:00)
[2017-10-08] MEDS: FAMOTIDINE 20 MG TABLET PO SCH (10:03)
[2017-10-08] MEDS: LOSARTAN POTASSIUM 50 MG TABLET (FP) PO SCH (10:03)
[2017-10-08] MEDS: TIOTROPIUM BROMIDE 18 MCG CAPSULES IH SCH (10:03)
[2017-10-08] MEDS: PANTOPRAZOLE 40 MG TABLET (FP) PO SCH (10:03)
[2017-10-08] MEDS: BUDESONIDE/FORMETEROL FUMARATE 160/4.5 mcg INHALER IH SCH (10:04)
[2017-10-08] MEDS: CEFTRIAXONE 1 G/50 ML PREMIX 50 ML IVPB SCH (10:04)
--- NOTE | 2017-10-08 10:52 | DS ---
Physical Exam: SUBJECTIVE: Patient seen and examined OBJECTIVE: Vital Signs Period Temp Pulse Resp BP Sys/Jasso Pulse Ox Last 24 Hr 97.8 F-98.8 F 65-93 18-20 125-147/55-74 93-94 PHYSICAL EXAM GENERAL: The patient is awake, alert, and fully oriented, in no acute distress. HEAD: Normal with no signs of trauma. EYES: PERRL, extraocular movements intact, sclera anicteric, conjunctiva clear. ENT: Ears normal, nares patent, oropharynx clear without exudates, moist mucous membranes. NECK: Trachea midline, full range of motion, supple. LUNGS: Breath sounds equal, clear to auscultation bilaterally, no wheezes, no crackles, no accessory muscle use. HEART: Regular rate and rhythm, S1, S2 without murmur, rub or gallop. ABDOMEN: Soft, nontender, nondistended, normoactive bowel sounds, no guarding, no rebound, no hepatosplenomegaly, no masses. EXTREMITIES: 2+ pulses, warm, well-perfused, no edema. NEUROLOGICAL: Cranial nerves II through XII grossly intact. Normal speech, gait not observed. PSYCH: Normal mood, normal affect. SKIN: Warm, dry, normal turgor, no rashes or lesions noted. LABS Laboratory Results - last 24 hr 10/07/17 10/07/17 13:00 13:00 WBC 13.8 H RBC 4.96 Hgb 14.1 D Hct 42.0 MCV 84.8 MCH 28.5 MCHC 33.6 RDW 13.9 Plt Count 336 MPV 7.4 L Neutrophils % 82.0 Lymphocytes % 10.3 Monocytes % 5.4 Eosinophils % 0.0 Basophils % 2.3 H Sodium 135 L Potassium 4.1 Chloride 103 Carbon Dioxide 26 Anion Gap 6 L BUN 23 H Creatinine 0.9 Random Glucose 211 H Calcium 8.3 L Phosphorus 3.6 Magnesium 2.4 HOSPITAL COURSE: Date of Admission:10/05/17 Date of Discharge: 10/08/17 Discharge Summary Reason For Visit: ASTHMA Current Active Problems Asthma (Acute) Condition: Stable - Instructions Diet, Activity, Other Instructions: Please return to the ED for any new, persistent, or worsening symptoms. Follow up with your PCP in 1 week Continue taking new inhaler medications as directed and daily Complete steroid taper and instructed Follow up with Dr. Canela when you have completed your steroid taper Referrals: Lico Canela MD [Primary Care Provider] - 2 Weeks Disposition: HOME - Home Medications Comprehensive Discharge Medication List: Ambulatory Orders Clonazepam [Klonopin] 5 mg PO HS 05/14/16 Lamotrigine [Lamictal -] 75 mg PO HS 09/30/17 Lamotrigine [Lamictal -] 200 mg PO HS 09/30/17 Pramipexole Dihydrochloride [Mirapex -] 1 mg PO HS 09/30/17 Verapamil HCl [Verapamil ER] 120 mg PO HS 09/30/17 Budesonide/Formeterol Fumarate [SYMBICORT 160/4.5mcg -] 2 puff IH BID #1 inhaler 10/08/17 Montelukast Na [Singulair -] 10 mg PO HS #1 tablet 10/08/17 Prednisone 10 mg PO DAILY #42 tablet 10/08/17 Tiotropium [place] [Spiriva] 1 puff IH DAILY #1 cap 10/08/17 - Discharge Referral Referred to [facility] No
== END 2017-10-08 12:10 | disposition home or self-care (01) | DRG 202 ==
LOC: FER 11:20 → UNDOADMOB 13:23 → FM/S 13:23 → OBSVTOIN 10-05 18:59
PROVIDERS: ADMIT Internal Medicine; ATTEND Nurse Practitioner Family
PROC: 3E0F76Z Introduction of Nutritional Substance into Respiratory Tract, Via Natural or Artificial Opening (ICD-10-PCS; principal; 2017-10-03)
DX: J45.901 Unspecified asthma with (acute) exacerbation (principal); J44.0 Chronic obstructive pulmonary disease with (acute) lower respiratory infection; J20.9 Acute bronchitis, unspecified; I10 Essential (primary) hypertension; E78.5 Hyperlipidemia, unspecified; F31.9 Bipolar disorder, unspecified; G25.81 Restless legs syndrome
CPT/HCPCS: 36415; 71260-TC; 76536-TC; 80048; 80053; 81003; 81015; 82550; 83735; 83880; 84100; 84484; 85025; 87086; 87186; 93005; 93306-TC; 93880-TC; 94010; 94150; 94640; 94761; 97116-GP; 97161-GP; 99282-25; G0378; J7620

== ENCOUNTER 2017-10-10 18:49 | Inpatient (IN) | payer BC ==
--- NOTE | 2017-10-10 19:06 | PDOC ---
History of Present Illness - General History Source: Patient, Spouse Exam Limitations: No Limitations - History of Present Illness Initial Comments: 10/10/17 19:34 The patient is a year old female, with a significant past medical history of HTN , asthma, multiple obstructions, and HLD, who presents to the emergency department with, 2 days of worsening shortness of breath and abdominal pain. She describes her abdominal pain as diffuse with associated distention. The patient was admitted for 5 days and discharged 2 days ago. She took 60mg of Prednisone yesterday and today. Her last bowel movement was 2 days ago, which is unusual to her. As per patients , she has become weaker and had difficulty sleeping. She reports SOB when speaking. She denies recent fevers, chills, headache or dizziness. She denies recent nausea, vomit, or diarrhea. She denies recent dysuria, frequency, urgency or hematuria. She denies recent chest pain. PAST MEDICAL HISTORY: HTN, asthma, multiple obstructions, and HLD FAMILY HISTORY: no pertinent history SOCIAL HISTORY: Pt lives with family and is employed. MEDICATIONS: reviewed ALLERGIES: As per nursing notes + General: Weakness. Difficulty sleeping. No fevers or chills, no weight loss HEENT: No change in vision. No sore throat,. No ear pain CardioVascular: No chest pain + Respiratory: SOB. No cough, or wheezing. + Gastrointestinal: Abdominal pain. Abdominal distention. Constipation. no nausea, vomiting, or diarrhea, No rectal bleeding Genitourinary: No dysuria, hematuria, or frequency Musculoskeletal: No joint or muscle pain or swelling Neurologic: No headache, vertigo, dizziness or loss of consciousness Psychiatric: nor depression Skin: No rashes or easy bruising Endocrine: no increased thirst or abnormal weight change Allergic: no skin or latex allergy All other systems reviewed and normal +General: Patient appears to be fatigued. Well-nourished well-developed individual, no acute distress HEENT: Throat: Normal, tonsils normal, no erythema or exudate Neck: Supple, no meningeal signs, no lymphadenopathy Eyes::Pupils equal reactive and round, extraocular motion intact Chest: Nontender to palpation Cardiac: S1-S2 normal, regular rate and rhythm, no murmurs rubs or gallops +Respiratory: Mild expiratory wheezing bilaterally left greater than right. Lungs clear to auscultation bilateral +Abdomen: Mildly distended. Decreased bowel sounds. Mild tenderness across the upper abdomen. Soft. Extremities: Warm, dry, no cyanosis, clubbing, or edema Skin: No rashes Neuro: Alert and oriented x3, nonfocal exam, grossly intact, normal gait Psych: Normal mood and affect <Jacqueline Mckinnon - Last Filed: 10/10/17 19:34> - General History Source: Patient Exam Limitations: No Limitations - History of Present Illness Initial Comments: Medical decision making: This is a 62-year-old female who was discharged to [facility] 2 days ago no returns complaining of increased shortness of breath lethargy and not feeling well. Patient said on my exam patient did have some wheezing but otherwise no acute respiratory distress. On abdominal exam abdomen was somewhat distended but soft and tender across the upper abdomen. There was no guarding or rebound. Patient's vitals are stable. Differential diagnosis includes acute exacerbation patient's asthma, bronchitis , pneumonia, gastritis, constipation, pancreatitis, viral etiology. Will obtain workup including CBC, comp, lipase, lactic acid, urinalysis, S to x- ray, flat and upright abdomen, CT scan abdomen and pelvis with IV and by mouth contrast, EKG, chest x-ray. Will follow results of workup and reassess and reevaluate 20:30 Reevaluation: Patient feels slightly better after DuoNeb otherwise remains hemodynamically unchanged 21:30 Reevaluation: Patient remains stable, patient finished drinking IV contrast waiting for CT scan 22:30 Reevaluation: Patient without any complaints at this time. Feels better, results a CT scan pending 12MN Reevaluation: Patient is unchanged without complaints, CT scan shows angry otitis patient will be admitted to an inpatient bed for pancreatitis Hospitalist service notified Assessment and plan: This is a 62-year-old female who comes in complaining of shortness of breath and abdominal pain. Patient had a DuoNeb that improved her shortness of breath patient's workup was significant for a markedly elevated lipase and a CAT scan that does show mild pancreatitis. Patient will be admitted to an inpatient bed. <Malena Baez I - Last Filed: 10/10/17 23:58> - General Chief Complaint: Shortness of Breath Stated Complaint: SOB Time Seen by Provider: 10/10/17 19:05 Past History <Jacqueline Mckinnon - Last Filed: 10/10/17 19:34> - Past Medical History Anemia: No Asthma: Yes Cancer: No Cardiac Disorders: No CVA: No COPD: Yes CHF: No Dementia: No Diabetes: No Dialysis: Yes GI Disorders: No Disorders: No HTN: Yes (HTN, diastollic dysfunction) Hypercholesterolemia: Yes Liver Disease: No Psychiatric Problems: Yes Seizures: No Thyroid Disease: No Other medical history: ENDOMETRIOSIS - Surgical History Abdominal Surgery: Yes (Repair of Adhesions) Appendectomy: No Cardiac Surgery: No Cholecystectomy: Yes (LAPAROSCOPIC CHOLECYSTECTOMY) GI Surgery: Yes Lung Surgery: No Neurologic Surgery: No Orthopedic Surgery: Yes (RIGHT KNEE ARTHROSCOPIC SURGERY) - Immunization History Td Vaccination: Yes Immunization Up to Date: No - Suicide/Smoking/Psychosocial Hx Smoking Status: No Smoking History: Never smoked Have you smoked in the past 12 months: No Number of Cigarettes Smoked Daily: 0 Hx Alcohol Use: No Drug/Substance Use Hx: No Substance Use Type: None Hx Substance Use Treatment: No <Malena Baez I - Last Filed: 10/10/17 23:58> - Past Medical History Allergies/Adverse Reactions: Allergies Allergy/AdvReac Type Severity Reaction Status Date / Time ketorolac tromethamine AdvReac Severe Vomiting Verified 10/10/17 18:50 [From Toradol] lurasidone HCl [From Latuda] AdvReac Severe DEPRESSIVE Verified 10/10/17 18:50 oxycodone HCl [From Percocet] AdvReac Severe Vomiting Verified 10/10/17 18:50 propoxyphene napsylate AdvReac Severe Vomiting Verified 10/10/17 18:50 [From Darvocet-N] (severe) Home Medications: Ambulatory Orders Clonazepam [Klonopin] 5 mg PO HS 05/14/16 Lamotrigine [Lamictal -] 75 mg PO HS 09/30/17 Lamotrigine [Lamictal -] 200 mg PO HS 09/30/17 Pramipexole Dihydrochloride [Mirapex -] 1 mg PO HS 09/30/17 Verapamil HCl [Verapamil ER] 120 mg PO HS 09/30/17 Budesonide/Formeterol Fumarate [SYMBICORT 160/4.5mcg -] 2 puff IH BID #1 inhaler 10/08/17 Montelukast Sodium [Singulair] 10 mg PO HS #30 tablet 10/08/17 Tiotropium [place] [Spiriva] 1 puff IH DAILY #1 cap 10/08/17 Albuterol Sulfate [Proair Respiclick] 90 mcg IH ASDIR PRN 10/10/17 Prednisone 10 mg PO ASDIR 10/10/17 *Physical Exam - Vital Signs Last Vital Signs Temp Pulse Resp BP Pulse Ox 98.1 F 93 H 22 162/94 96 10/10/17 18:50 10/10/17 18:50 10/10/17 18:50 10/10/17 18:50 10/10/17 18:50 <Jacqueline Mckinnon - Last Filed: 10/10/17 19:34> - Vital Signs Last Vital Signs Temp Pulse Resp BP Pulse Ox 98.1 F 93 H 22 162/94 96 10/10/17 18:50 10/10/17 18:50 10/10/17 18:50 10/10/17 18:50 10/10/17 18:50 <Malena Baez I - Last Filed: 10/10/17 23:58> ED Treatment Course - LABORATORY CBC & Chemistry Diagram: 10/10/17 19:30 10/10/17 19:30 <Malena Baez I - Last Filed: 10/10/17 23:58> *DC/Admit/Observation/Transfer - Attestations Scribe Attestion: 10/10/17 19:35 Documentation prepared by Jacqueline Mckinnon, acting as clinical medical assistant for Malena Baez MD. <Jacqueline Mckinnon - Last Filed: 10/10/17 19:34> - Discharge Dispostion Decision to Admit order: Yes <Malena Baez I - Last Filed: 10/10/17 23:58> Diagnosis at time of Disposition: Acute pancreatitis Qualifiers: Pancreatitis type: unspecified pancreatitis type Acute pancreatitis complication: unspecified Qualified Code(s): K85.90 - Acute pancreatitis without necrosis or infection, unspecified - Discharge Dispostion Condition at time of disposition: Stable
[2017-10-10] MEDS ORDERED: ALBUTEROL SO4 2.5/IPRATROPIUM 0.5 INH SOL 3 ML VIAL.NEB. NEB ONE (19:20)
[2017-10-10] MEDS ORDERED: SODIUM CHLORIDE 1,000 ML IV ONE (19:20)
[2017-10-10 19:51] LABS: HEMATOCRIT 43.5 % (32.4-45.2); HEMOGLOBIN 14.4 GM/dl (10.7-15.3); MCH 28.2 pg (25.7-33.7); MEAN CELL VOLUME 85.4 fl (80-96); MEAN PLT VOLUME 7.6 fl (7.5-11.1); PLATELET COUNT 296 K/MM3 (134-434); RDW 13.6 % (11.6-15.6); WHITE BLOOD COUNT 15.6 K/mm3 (4.0-10.8)
[2017-10-10 20:01] LABS: ALBUMIN 3.4 g/dl (3.5-5.0); ALK PHOS 86 U/L (32-92); ANION GAP 8 (8-16); BILIRUBIN,TOTAL 0.4 mg/dl (0.2-1.0); BLOOD UREA NITROGEN 20 mg/dl (7-18); CALCIUM 8.5 mg/dl (8.4-10.2); CHLORIDE 97 mmol/L (98-107); CO2 32 mmol/L (22-28); GLUCOSE,RANDOM 121 mg/dl (74-106); POTASSIUM 4.4 mmol/L (3.5-5.1); SGOT/AST 51 U/L (10-42); SGPT/ALT 117 U/L (10-40); SODIUM 137 mmol/L (136-145); TOT PROT 5.9 g/dl (6.4-8.3)
[2017-10-10 20:43] LABS: PLATELET ESTIMATE ADEQUATE
[2017-10-10 20:48] LABS: CREATININE 0.8 mg/dl (0.6-1.3)
[2017-10-10 20:53] LABS: URINE APPEARANCE CLEAR; URINE BILIRUBIN NEGATIVE (NEGATIVE); URINE COLOR YELLOW; URINE GLUCOSE (UA) NEGATIVE (NEGATIVE); URINE KETONE NEGATIVE (NEGATIVE); URINE LEUK ESTERASE TRACE (NEGATIVE); URINE NITRITE NEGATIVE (NEGATIVE); URINE PROTEIN NEGATIVE (NEGATIVE); URINE UROBILINOGEN 0.2 (0.2-1.0)
[2017-10-10 21:04] LABS: LIPASE 2216 U/L (73-393)
[2017-10-10 22:35] LABS: EPI CELLS FEW /HPF; URINE BACTERIA FEW /hpf (NEGATIVE)
[2017-10-11] MEDS ORDERED: ALBUTEROL SO4 2.5/IPRATROPIUM 0.5 INH SOL 3 ML VIAL.NEB. NEB PRN (00:28)
[2017-10-11] MEDS ORDERED: LACTATED RINGERS SOLUTION 1,000 ML IV SCH ×2 (00:30)
[2017-10-11 01:14] VITALS: BMI 38.5
--- NOTE | 2017-10-11 07:24 | HP ---
CHIEF COMPLAINT:abdominal pain and nausea PCP: Dr Harmon HISTORY OF PRESENT ILLNESS:patient is a obese 61-year-old female with a past medical history COPD renal artery aneurysm, bipolar disorder, hyperlipidemia, restless leg syndrome, SVT, laryngeal pharyngeal reflux, GERD, and hypertension. Patient was recently admitted to this hospital on 10/03/2017 to discharged 10/08/2017 for COPD exacerbation. patient reports that on Tuesday, , she developed sharp abdominal pain with nausea and vomiting. She reports the symptoms continued for 24 hours and then nausea and vomiting worsened within the past 24 hours as a result she sought evaluation in emergency department. patient reports compliance with prescribed medications she denies any alcohol use. ER course was notable for: (1)CT scan of abdomen and pelvis with contrast: Possible septal peripancreatic stranding may indicate a mild degree of acute pancreatitis no evidence of bowel structure or acute pathology (2)amylase 2216 (3)ast/alt 51/117 Recent Travel: none PAST MEDICAL HISTORY: see hpi PAST SURGICAL HISTORY:laparotomy/lyses of adhesions, March 2014. Cholecystectomy (laparoscopic) 2010. Hysterectomy (partial 1989). Breast implants/removed (2002) Social History: resides at home with Smoking: none Alcohol: none Drugs: none Family History: non contributory to this admission Allergies ketorolac tromethamine [From Toradol] Adverse Reaction (Severe, Verified 18:50) Vomiting lurasidone HCl [From Latuda] Adverse Reaction (Severe, Verified 10/10/17 18:50) DEPRESSIVE oxycodone HCl [From Percocet] Adverse Reaction (Severe, Verified 10/10/17 18:50) Vomiting propoxyphene napsylate [From Darvocet-N] Adverse Reaction (Severe, Verified 18:50) Vomiting (severe) HOME MEDICATIONS: Home Medications Medication Instructions Recorded Clonazepam [Klonopin] 5 mg PO HS 05/14/16 Lamotrigine [Lamictal -] 75 mg PO HS 09/30/17 Lamotrigine [Lamictal -] 200 mg PO HS 09/30/17 Pramipexole Dihydrochloride 1 mg PO HS 09/30/17 [Mirapex -] Verapamil HCl [Verapamil ER] 120 mg PO HS 09/30/17 Budesonide/Formeterol Fumarate 2 puff IH BID #1 inhaler 10/08/17 [SYMBICORT 160/4.5mcg -] Montelukast Sodium [Singulair] 10 mg PO HS #30 tablet 10/08/17 Tiotropium [place] [Spiriva] 1 puff IH DAILY #1 cap 10/08/17 Albuterol Sulfate [Proair 90 mcg IH ASDIR PRN 10/10/17 Respiclick] Prednisone 10 mg PO ASDIR 10/10/17 REVIEW OF SYSTEMS CONSTITUTIONAL: Absent: fever, chills, diaphoresis, generalized weakness, malaise, loss of appetite, weight change HEENT: Absent: rhinorrhea, nasal congestion, throat pain, throat swelling, difficulty swallowing, mouth swelling, ear pain, eye pain, visual changes CARDIOVASCULAR: Absent: chest pain, syncope, palpitations, irregular heart rate, lightheadedness , peripheral edema RESPIRATORY: Absent: cough, shortness of breath, dyspnea with exertion, orthopnea, wheezing, stridor, hemoptysis GASTROINTESTINAL: Present: abdominal pain, nausea, vomiting Absent: abdominal distension,diarrhea, constipation, melena, hematochezia GENITOURINARY: Absent: dysuria, frequency, urgency, hesitancy, hematuria, flank pain, genital pain MUSCULOSKELETAL: Absent: myalgia, arthralgia, joint swelling, back pain, neck pain SKIN: Absent: rash, itching, pallor HEMATOLOGIC/IMMUNOLOGIC: Absent: easy bleeding, easy bruising, lymphadenopathy, frequent infections ENDOCRINE: Absent: unexplained weight gain, unexplained weight loss, heat intolerance, cold intolerance NEUROLOGIC: Absent: headache, focal weakness or paresthesias, dizziness, unsteady gait, seizure, mental status changes, bladder or bowel incontinence PSYCHIATRIC: Absent: anxiety, depression, suicidal or homicidal ideation, hallucinations. PHYSICAL EXAMINATION Vital Signs - 24 hr 10/10/17 10/10/17 10/11/17 18:50 23:18 00:04 Temperature 98.1 F 98.1 F Pulse Rate 93 H 86 Pulse Rate [ 87 Left Radial] Respiratory 22 14 20 Rate Blood Pressure 162/94 152/83 Blood Pressure 132/90 [Right Arm] O2 Sat by Pulse 96 95 95 Oximetry (%) 10/11/17 10/11/17 10/11/17 00:41 06:17 06:23 Temperature 98.1 F 98.0 F Pulse Rate 86 76 Pulse Rate [ Left Radial] Respiratory 20 18 Rate Blood Pressure 152/83 146/75 Blood Pressure [Right Arm] O2 Sat by Pulse 95 96 Oximetry (%) GENERAL: Awake, alert, and fully oriented, in no acute distress. HEAD: Normal with no signs of trauma. EYES: Pupils equal, round and reactive to light, extraocular movements intact, sclera anicteric, conjunctiva clear. No lid lag. EARS, NOSE, THROAT: Ears normal, nares patent, oropharynx clear without exudates. Moist mucous membranes. NECK: Normal range of motion, supple without lymphadenopathy, JVD, or masses. LUNGS: Breath sounds equal, clear to auscultation bilaterally. No wheezes, and no crackles. No accessory muscle use. HEART: Regular rate and rhythm, normal S1 and S2 without murmur, rub or gallop. ABDOMEN: Soft, nontender, not distended, normoactive bowel sounds, no guarding, no rebound, no masses. No hepatomegaly or splenomegaly. MUSCULOSKELETAL: Normal range of motion at all joints. No bony deformities or tenderness. No CVA tenderness. UPPER EXTREMITIES: 2+ pulses, warm, well-perfused. No cyanosis. No clubbing. No peripheral edema. LOWER EXTREMITIES: 2+ pulses, warm, well-perfused. No calf tenderness. No peripheral edema. NEUROLOGICAL: Cranial nerves II-XII intact. Normal speech. Normal gait. PSYCHIATRIC: Cooperative. Good eye contact. Appropriate mood and affect. SKIN: Warm, dry, normal turgor, no rashes or lesions noted, normal capillary refill. Laboratory Results - last 24 hr 10/10/17 10/10/17 10/10/17 19:30 19:30 19:30 WBC 15.6 H RBC 5.10 Hgb 14.4 Hct 43.5 MCV 85.4 MCH 28.2 MCHC 33.0 RDW 13.6 Plt Count 296 MPV 7.6 Neutrophils % No Result Required. Neutrophils % (Manual) 84.0 H Band Neutrophils % 1.0 Lymphocytes % No Result Required. Lymphocytes % (Manual) 10.0 Monocytes % (Manual) 5 Platelet Estimate Adequate D-Dimer 707 H Sodium 137 Potassium 4.4 Chloride 97 L Carbon Dioxide 32 H D Anion Gap 8 BUN 20 H Creatinine 0.8 Creat Clearance w eGFR > 60 Random Glucose 121 H D Lactic Acid Calcium 8.5 Total Bilirubin 0.4 D AST 51 H D ALT 117 H D Alkaline Phosphatase 86 Creatine Kinase Troponin I Total Protein 5.9 L Albumin 3.4 L Lipase 2216 H Urine Color Urine Appearance Urine pH Ur Specific [place] Urine Protein Urine Glucose (UA) Urine Ketones Urine Blood Urine Nitrite Urine Bilirubin Urine Urobilinogen Ur Leukocyte Esterase Urine RBC Urine WBC Ur Epithelial Cells Urine Bacteria 10/10/17 10/10/17 10/10/17 19:30 19:30 20:35 WBC RBC Hgb Hct MCV MCH MCHC RDW Plt Count MPV Neutrophils % Neutrophils % (Manual) Band Neutrophils % Lymphocytes % Lymphocytes % (Manual) Monocytes % (Manual) Platelet Estimate D-Dimer Sodium Potassium Chloride Carbon Dioxide Anion Gap BUN Creatinine Creat Clearance w eGFR Random Glucose Lactic Acid 1.2 Calcium Total Bilirubin AST ALT Alkaline Phosphatase Creatine Kinase 94 Troponin I < 0.03 Total Protein Albumin Lipase Urine Color Urine Appearance Urine pH Ur Specific [place] Urine Protein Urine Glucose (UA) Urine Ketones Urine Blood Urine Nitrite Urine Bilirubin Urine Urobilinogen Ur Leukocyte Esterase Urine RBC Urine WBC Ur Epithelial Cells Urine Bacteria 10/10/17 20:45 WBC RBC Hgb Hct MCV MCH MCHC RDW Plt Count MPV Neutrophils % Neutrophils % (Manual) Band Neutrophils % Lymphocytes % Lymphocytes % (Manual) Monocytes % (Manual) Platelet Estimate D-Dimer Sodium Potassium Chloride Carbon Dioxide Anion Gap BUN Creatinine Creat Clearance w eGFR Random Glucose Lactic Acid Calcium Total Bilirubin AST ALT Alkaline Phosphatase Creatine Kinase Troponin I Total Protein Albumin Lipase Urine Color Yellow Urine Appearance Clear Urine pH 7.0 Ur Specific [place] 1.020 Urine Protein Negative Urine Glucose (UA) Negative Urine Ketones Negative Urine Blood Trace-intact H Urine Nitrite Negative Urine Bilirubin Negative Urine Urobilinogen 0.2 Ur Leukocyte Esterase Trace H Urine RBC 2-5 Urine WBC 10-20 Ur Epithelial Cells Few Urine Bacteria Few ASSESSMENT/PLAN: 1) GI acute pancreatitis - lipase 2216, ct abdomen and pelvis notable for pancreatitis, as Anamine as noted in right upper quadrant tenderness noted on exam border ultrasound of abdomen assess CBD - trend amylase/lipse and lft's - keep npo with ivf - appreciate GI consult (Rosa) 2) cardiovascular SVT hypertension - continue verapimil strict monitoring - b/p slightly above goal,may be secondary to pain strict monitoring q4h 3) psych bipolar disorder - continue home dose lamictal and klonopin - medication confirmed with [facility]# [id number] 4) pulmonary Acute COPD exacerbation - Recently discharged from this hospital on 10/08/2017. Continue prednisone as prescribed - continue Symbicort Spiriva and albuterol when necessary 5) Neurology Restless leg syndrome - Continue Mirapex daily F/E/N - nothing by mouth continue IV fluids one half normal saline at 100 mL an hour - replete electrolytes when necessary PPX - Lovenox - protonix dispo: she requires inpatient admission for acute pancreatitis Visit type - Emergency Visit Emergency Visit: Yes ED Registration Date: 10/11/17 Care time: The patient presented to the Emergency Department on the above date and was hospitalized for further evaluation of their emergent condition. - New Patient This patient is new to me today: Yes Date on this admission: 10/13/17 - Critical Care Critical Care patient: No Hospitalist Screening - Colonoscopy Questionnaire Colonoscopy Questionnaire: Colonoscopy Questionnaire - Patient: 50 - 75 years old and never had a screening colonoscopy: No History of colon or rectal polyps, or CA: No History of IBD, Crohn's disease or UC: No History of abdominal radiation therapy as a child: No - Relative: 1 with colon or rectal CA, or polyps at age 60 or younger: No Colon or rectal CA diagnosed at age 45 or younger: No Multiple relatives with colon or rectal CA: No - Outcome: Screening Result: Negative Screen
[2017-10-11 08:41] LABS: AMYLASE 167 U/L (25-125)
[2017-10-11 08:42] LABS: ALBUMIN 3.5 g/dl (3.5-5.0); ALK PHOS 89 U/L (32-92); BILIRUBIN,TOTAL 0.6 mg/dl (0.2-1.0); SGOT/AST 33 U/L (10-42); SGPT/ALT 122 U/L (10-40); TOT PROT 6.3 g/dl (6.4-8.3)
[2017-10-11 08:44] LABS: CHOLESTEROL 228 mg/dl; HDL CHOLESTEROL 49 mg/dl (29-89); LDL CHOLESTEROL (ONLY DFH) 135 mg/dl; TRIGLYCERIDES 218 mg/dl (35-160)
[2017-10-11 08:50] LABS: BILIRUBIN,DIRECT < 0.2 mg/dL (0.0-0.3)
[2017-10-11 09:14] LABS: LIPASE 674 U/L (73-393)
[2017-10-11 09:40] LABS: ANION GAP 9 (8-16); BLOOD UREA NITROGEN 17 mg/dl (7-18); CALCIUM 8.5 mg/dl (8.4-10.2); CHLORIDE 100 mmol/L (98-107); CO2 28 mmol/L (22-28); GLUCOSE,RANDOM 126 mg/dl (74-106); POTASSIUM 4.3 mmol/L (3.5-5.1); SODIUM 137 mmol/L (136-145)
[2017-10-11 09:57] LABS: CREATININE < 0.8 mg/dl (0.6-1.3)
[2017-10-11] MEDS ORDERED: BUDESONIDE/FORMETEROL FUMARATE 160/4.5 mcg INHALER IH SCH (10:00)
[2017-10-11] MEDS ORDERED: TIOTROPIUM BROMIDE 18 MCG CAPSULES IH SCH (10:00)
[2017-10-11] MEDS ORDERED: PT OWN MED DRAWER 7, Y5N ONE ×3 (10:02→21:58)
[2017-10-11] MEDS: ENOXAPARIN NA (PORCINE) 40 MG/0.4 ML DISP.SYRIN SQ SCH (10:12)
[2017-10-11] MEDS ORDERED: SODIUM CHLORIDE 0.45% 1,000 ML IV SCH (11:30)
[2017-10-11] MEDS ORDERED: predniSONE 10 MG TABLET (UD) PO SCH (11:30)
[2017-10-11] MEDS ORDERED: ACETAMINOPHEN 325 MG TABLET (FP) PO PRN (11:58)
[2017-10-11] MEDS: LOSARTAN POTASSIUM 50 MG TABLET (FP) PO SCH (12:00)
[2017-10-11] MEDS: PANTOPRAZOLE 40 MG TABLET (FP) PO SCH (13:12)
[2017-10-11] MEDS: predniSONE 20 MG TABLET (UD) PO SCH (13:12)
--- NOTE | 2017-10-11 13:24 | EKG ---
Test Reason : Blood Pressure : / mmHG Vent. Rate : 085 BPM Atrial Rate : 085 BPM P-R Int : 134 ms QRS Dur : 092 ms QT Int : 352 ms P-R-T Axes : 045 -18 025 degrees QTc Int : 418 ms NORMAL SINUS RHYTHM VOLTAGE CRITERIA FOR LEFT VENTRICULAR HYPERTROPHY INFERIOR INFARCT (CITED ON OR BEFORE 30-JUN-2016) ABNORMAL ECG WHEN COMPARED WITH ECG OF 03-OCT-2017 12:17, NO SIGNIFICANT CHANGE WAS FOUND Confirmed by MD Gertrude, Loyd ([id number]) on 10/11/2017 1:24:26 PM Referred By: ELLI ESPINOZA Confirmed By:Loyd Loredo MD
--- NOTE | 2017-10-11 19:55 | CON.GI ---
Consult Consult Specialty:: GI Reason for Consultation:: acute pancreatitis - History of Present Illness History of Present Illness: Chart reviewed. Events noted. As per initial intake: A 61-year-old female with a past medical history COPD, renal artery aneurysm, bipolar disorder, hyperlipidemia, restless leg syndrome, SVT, laryngeal pharyngeal reflux, GERD, and hypertension, admitted to this hospital on 10/03/2017 for COPD exacerbation. patient reports that on 10/09/2017, she developed sharp abdominal pain with nausea and vomiting. She reports the symptoms continued for 24 hours and then nausea and vomiting worsened within the past 24 hours as a result she sought evaluation in emergency department. patient reports compliance with prescribed medications she denies any alcohol use. ER course was notable for: (1)CT scan of abdomen and pelvis with contrast: Possible peripancreatic stranding may indicate a mild degree of acute pancreatitis no evidence of bowel structure or acute pathology (2)amylase 2216 (3)ast/alt 51/117 US liver - Normal CBD, fatty liver. Cholecystectomy. Leukocytosis with left shift, normal BUN, Cr, bili, ALP At the time of this encounter, the patient appears comfortable, not in distress. Reports no prior history of pancreatitis. No family history of the same. Lolly chronic alcohol use, NSAID. The only new medications was steroid taper for recent COPD exacerbations. No weight loss, dysphagia, jaundice, melena , hematochezoa, or changes in bowels. 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 No: AFIB Pulmonary: Yes: COPD. No: Cancer, O2 Dependent, Pneumonia Musculoskeletal: Yes: Chronic low back pain - Past Surgical History Past Surgical History: Yes: Cholecystectomy, Hernia Repair, Hysterectomy - Alcohol/Substance Use Hx Alcohol Use: No - Smoking History Smoking history: Never smoked Have you smoked in the past 12 months: No Aproximately how many cigarettes per day: 0 - Social History Usual Living Arrangement: With Spouse History of Recent Travel: No Home Medications - Allergies Allergies/Adverse Reactions: Allergies Allergy/AdvReac Type Severity Reaction Status Date / Time ketorolac tromethamine AdvReac Severe Vomiting Verified 10/10/17 18:50 [From Toradol] lurasidone HCl [From Latuda] AdvReac Severe DEPRESSIVE Verified 10/10/17 18:50 oxycodone HCl [From Percocet] AdvReac Severe Vomiting Verified 10/10/17 18:50 propoxyphene napsylate AdvReac Severe Vomiting Verified 10/10/17 18:50 [From Darvocet-N] (severe) - Home Medications Home Medications: Ambulatory Orders Clonazepam [Klonopin] 5 mg PO HS 05/14/16 Lamotrigine [Lamictal -] 75 mg PO HS 09/30/17 Lamotrigine [Lamictal -] 200 mg PO HS 09/30/17 Pramipexole Dihydrochloride [Mirapex -] 1 mg PO HS 09/30/17 Verapamil HCl [Verapamil ER] 120 mg PO HS 09/30/17 Budesonide/Formeterol Fumarate [SYMBICORT 160/4.5mcg -] 2 puff IH BID #1 inhaler 10/08/17 Montelukast Sodium [Singulair] 10 mg PO HS #30 tablet 10/08/17 Tiotropium [place] [Spiriva] 1 puff IH DAILY #1 cap 10/08/17 Albuterol Sulfate [Proair Respiclick] 90 mcg IH ASDIR PRN 10/10/17 Prednisone 10 mg PO ASDIR 10/10/17 Family Disease History - Family Disease History Family History: Unremarkable Review of Systems Findings/Remarks: As per H&P and HPI Physical Exam-GI Vital Signs: Vital Signs Temperature 98.6 F 10/11/17 18:02 Pulse Rate 74 10/11/17 18:02 Respiratory Rate 18 10/11/17 18:02 Blood Pressure 130/76 10/11/17 18:02 O2 Sat by Pulse Oximetry (%) 95 10/11/17 14:27 Constitutional: Yes: Well Nourished, No Distress, Anxious Eyes: Yes: Conjunctiva Clear HENT: Yes: Atraumatic Neck: Yes: Supple Cardiovascular: Yes: Regular Rate and Rhythm Respiratory: Yes: Regular Gastrointestinal Inspection: Yes: Distention. No: Ascites ...Palpate: Yes: Soft. No: Firm/Rigid, Guarding, Tenderness Neurological: Yes: Alert, Oriented Labs: CBC, BMP 10/10/17 19:30 10/11/17 07:30 Laboratory Last Values WBC 15.6 K/mm3 (4.0-10.8) H 10/10/17 19:30 RBC 5.10 M/mm3 (3.60-5.2) 10/10/17 19:30 Hgb 14.4 GM/dl (10.7-15.3) 10/10/17 19:30 Hct 43.5 % (32.4-45.2) 10/10/17 19:30 MCV 85.4 fl (80-96) 10/10/17 19:30 MCH 28.2 pg (25.7-33.7) 10/10/17 19:30 MCHC 33.0 g/dl (32.0-36.0) 10/10/17 19: RDW 13.6 % (11.6-15.6) 10/10/17 19: Plt Count 296 K/MM3 (134-434) 10/10/17 19:30 MPV 7.6 fl (7.5-11.1) 10/10/17 19:30 Neutrophils % No Result Required. 10/10/17 19:30 Neutrophils % (Manual) 84.0 % (42.8-82.8) H 10/10/17 19:30 Band Neutrophils % 1.0 % (0-10) 10/10/17 19:30 Lymphocytes % No Result Required. 10/10/17 19:30 Lymphocytes % (Manual) 10.0 % (8-40) 10/10/17 19:30 Monocytes % (Manual) 5 % (3.8-10.2) 10/10/17 19:30 Platelet Estimate Adequate 10/10/17 19:30 D-Dimer 707 ng/ml (0-500) H 10/10/17 19:30 Sodium 137 mmol/L (136-145) 10/11/17 07:30 Potassium 4.3 mmol/L (3.5-5.1) 10/11/17 07:30 Chloride 100 mmol/L (98-107) 10/11/17 07:30 Carbon Dioxide 28 mmol/L (22-28) 10/11/17 07:30 Anion Gap 9 (8-16) 10/11/17 07:30 BUN 17 mg/dl (7-18) 10/11/17 07:30 Creatinine < 0.8 mg/dl (0.6-1.3) 10/11/17 07:30 Creat Clearance w eGFR > 60 (>60) 10/10/17 19:30 Random Glucose 126 mg/dl (74-106) H 10/11/17 07:30 Hemoglobin A1c % 6.9 % (4.8-6.0) H 10/11/17 08:21 Lactic Acid 1.2 mmol/L (0.0-2.0) 10/10/17 20:35 Calcium 8.5 mg/dl (8.4-10.2) 10/11/17 07:30 Total Bilirubin 0.6 mg/dl (0.2-1.0) D 10/11/17 08:21 Direct Bilirubin < 0.2 mg/dL (0.0-0.3) 10/11/17 08:21 AST 33 U/L (10-42) D 10/11/17 08:21 ALT 122 U/L (10-40) H 10/11/17 08:21 Alkaline Phosphatase 89 U/L (32-92) 10/11/17 08:21 Creatine Kinase 94 IU/L (26-192) 10/10/17 19:30 Troponin I < 0.03 ng/ml (0.00-0.06) 10/10/17 19:30 Total Protein 6.3 g/dl (6.4-8.3) L 10/11/17 08:21 Albumin 3.5 g/dl (3.5-5.0) 10/11/17 08:21 Triglycerides 218 mg/dl (35-160) H D 10/11/17 08:21 Cholesterol 228 mg/dl 10/11/17 08:21 Total LDL Cholesterol 135 mg/dl 10/11/17 08:21 HDL Cholesterol 49 mg/dl (29-89) D 10/11/17 08:21 Total Amylase 167 U/L (25-125) H 10/11/17 08:21 Lipase 674 U/L (73-393) H 10/11/17 08:21 Urine Color Yellow 10/10/17 20:45 Urine Appearance Clear 10/10/17 20:45 Urine pH 7.0 (4.5-8) 10/10/17 20:45 Ur Specific Ewen 1.020 (1.005-1.025) 10/10/17 20:45 Urine Protein Negative (NEGATIVE) 10/10/17 20:45 Urine Glucose (UA) Negative (NEGATIVE) 10/10/17 20:45 Urine Ketones Negative (NEGATIVE) 10/10/17 20:45 Urine Blood Trace-intact (NEGATIVE) H 10/10/17 20:45 Urine Nitrite Negative (NEGATIVE) 10/10/17 20:45 Urine Bilirubin Negative (NEGATIVE) 10/10/17 20:45 Urine Urobilinogen 0.2 (0.2-1.0) 10/10/17 20:45 Ur Leukocyte Esterase Trace (NEGATIVE) H 10/10/17 20:45 Urine RBC 2-5 /hpf (0-3) 10/10/17 20:45 Urine WBC 10-20 (0-5) 10/10/17 20:45 Ur Epithelial Cells Few /HPF 10/10/17 20:45 Urine Bacteria Few /hpf (NEGATIVE) 10/10/17 20:45 Imaging - Results Cat Scan: Report Reviewed Ultrasound: Report Reviewed Problem List - Problems (1) Acute pancreatitis Code(s): K85.90 - ACUTE PANCREATITIS WITHOUT NECROSIS OR INFECTION, UNSP Qualifiers: Pancreatitis type: unspecified pancreatitis type Acute pancreatitis complication: unspecified Qualified Code(s): K85.90 - Acute pancreatitis without necrosis or infection, unspecified Assessment/Plan 62F with 1st episode of mild, acute pancreatitis. No other organ systems involved. No signs of cholestasis. ?idiopathic ?microlithiasis, ?steroids/ medications, ?viral. Clinically appears well. Trial of full liquid diet, CBC, CMP in AM. Continue IV hydrations, antiemetic/pain management as needed. Discussed with the patient. Zolpidem PRN for insomnia
[2017-10-11] MEDS ORDERED: clonazePAM 0.5 MG TABLET ONE (21:34)
[2017-10-11] MEDS ORDERED: clonazePAM 2 MG TABLET ONE (21:35)
[2017-10-11] MEDS: CLONAZEPAM PO SCH (21:59)
[2017-10-11] MEDS: VERAPAMIL HCL 120 MG E.R. TABLET PO SCH (21:59)
[2017-10-11] MEDS: ROSUVASTATIN CA 5 MG TABLET (FP) PO SCH (21:59)
[2017-10-11] MEDS ORDERED: ZOLPIDEM TARTRATE 5 MG TABLET PO PRN (22:00)
[2017-10-11] MEDS: lamoTRIgine 25 MG TABLET PO SCH (22:00)
[2017-10-11] MEDS ORDERED: CLONAZEPAM 5 MG PO SCH (22:00)
[2017-10-11] MEDS: lamoTRIgine 100 MG TABLET (FP) PO SCH (22:00)
[2017-10-11] MEDS: PRAMIPEXOLE DIHYDROCHLORIDE 1 MG TABLET PO SCH (22:01)
[2017-10-11] MEDS: BUDESONIDE/FORMETEROL FUMARATE 160/4.5 mcg INHALER IH SCH (22:01)
[2017-10-11] MEDS: MONTELUKAST NA 10 MG TABLET PO SCH (22:01)
[2017-10-12 08:02] LABS: EOS % 1.2 % (0-4.5)
[2017-10-12 08:07] LABS: BASO % 0.2 % (0-2.0); HEMATOCRIT 41.2 % (32.4-45.2); HEMOGLOBIN 13.8 GM/dl (10.7-15.3); LYMPH % 18.3 % (8-40); MCH 29.1 pg (25.7-33.7); MCHC 33.6 g/dl (32.0-36.0); MEAN CELL VOLUME 86.6 fl (80-96); MEAN PLT VOLUME 7.2 fl (7.5-11.1); MONO % 6.5 % (3.8-10.2); NEUT % 73.8 % (42.8-82.8); PLATELET COUNT 286 K/MM3 (134-434); RBC 4.75 M/mm3 (3.60-5.2); RDW 13.8 % (11.6-15.6); WHITE BLOOD COUNT 11.4 K/mm3 (4.0-10.8)
[2017-10-12 08:20] LABS: ALBUMIN 3.4 g/dl (3.5-5.0); ALK PHOS 78 U/L (32-92); ANION GAP 5 (8-16); BILIRUBIN,TOTAL 0.7 mg/dl (0.2-1.0); BLOOD UREA NITROGEN 14 mg/dl (7-18); CALCIUM 8.4 mg/dl (8.4-10.2); CHLORIDE 100 mmol/L (98-107); CO2 29 mmol/L (22-28); GLUCOSE,RANDOM 117 mg/dl (74-106); MAGNESIUM 2.2 mg/dL (1.8-2.4); PHOSPHOROUS 3.8 mg/dl (2.5-4.6); POTASSIUM 4.2 mmol/L (3.5-5.1); SGOT/AST 24 U/L (10-42); SGPT/ALT 91 U/L (10-40); SODIUM 134 mmol/L (136-145)
[2017-10-12 08:26] LABS: CREATININE < 0.8 mg/dl (0.6-1.3)
[2017-10-12] MEDS ORDERED: PT OWN MED DRAWER 7, Y5N ONE ×3 (09:07→21:05)
[2017-10-12] MEDS: TIOTROPIUM BROMIDE 18 MCG CAPSULES IH SCH (09:27)
[2017-10-12] MEDS: ENOXAPARIN NA (PORCINE) 40 MG/0.4 ML DISP.SYRIN SQ SCH (09:28)
[2017-10-12] MEDS: PANTOPRAZOLE 40 MG TABLET (FP) PO SCH (09:28)
[2017-10-12] MEDS: predniSONE 20 MG TABLET (UD) PO SCH (09:29)
[2017-10-12] MEDS: LOSARTAN POTASSIUM 50 MG TABLET (FP) PO SCH (09:32)
[2017-10-12] MEDS: BUDESONIDE/FORMETEROL FUMARATE 160/4.5 mcg INHALER IH SCH ×2 (09:32→21:14)
--- NOTE | 2017-10-12 09:44 | PN ---
Physical Exam: SUBJECTIVE: Patient seen and examined, patient is ambulatory at bedside, reports decreased abominal pain, tolerating full liquid diet. OBJECTIVE::patient is a obese 61-year-old female with a past medical history COPD renal artery aneurysm, bipolar disorder, hyperlipidemia, restless leg syndrome, SVT, laryngeal pharyngeal reflux, GERD, and hypertension. Patient was admitted from the emergency department for acute pancreatitis Vital Signs Period Temp Pulse Resp BP Sys/Jasso Pulse Ox Last 24 Hr 98.2 F-98.8 F 68-80 18-18 107-138/49-90 95-95 GENERAL: The patient is awake, alert, and fully oriented, in no acute distress. HEAD: Normal with no signs of trauma. EYES: PERRL, extraocular movements intact, sclera anicteric, conjunctiva clear. No ptosis. ENT: Ears normal, nares patent, oropharynx clear without exudates, moist mucous membranes. NECK: Trachea midline, full range of motion, supple. LUNGS: Breath sounds equal, clear to auscultation bilaterally, no wheezes, no crackles, no accessory muscle use. HEART: Regular rate and rhythm, S1, S2 without murmur, rub or gallop. ABDOMEN: Soft, obese, nondistended, normoactive bowel sounds, no guarding, no rebound, no hepatosplenomegaly, no masses. EXTREMITIES: 2+ pulses, warm, well-perfused, no edema. NEUROLOGICAL: Cranial nerves II through XII grossly intact. Normal speech, gait not observed. PSYCH: Normal mood, normal affect. SKIN: Warm, dry, normal turgor, no rashes or lesions noted Laboratory Results - last 24 hr 10/11/17 10/11/17 10/12/17 07:30 08:21 07:30 WBC 11.4 H RBC 4.75 Hgb 13.8 Hct 41.2 MCV 86.6 MCH 29.1 MCHC 33.6 RDW 13.8 Plt Count 286 MPV 7.2 L Neutrophils % 73.8 Lymphocytes % 18.3 Monocytes % 6.5 Eosinophils % 1.2 Basophils % 0.2 Sodium 137 Potassium 4.3 Chloride 100 Carbon Dioxide 28 Anion Gap 9 BUN 17 Creatinine < 0.8 Creat Clearance w eGFR Random Glucose 126 H Hemoglobin A1c % 6.9 H Calcium 8.5 Phosphorus Magnesium Total Bilirubin AST ALT Alkaline Phosphatase Total Protein Albumin 10/12/17 07:30 WBC RBC Hgb Hct MCV MCH MCHC RDW Plt Count MPV Neutrophils % Lymphocytes % Monocytes % Eosinophils % Basophils % Sodium 134 L Potassium 4.2 Chloride 100 Carbon Dioxide 29 H Anion Gap 5 L BUN 14 Creatinine < 0.8 Creat Clearance w eGFR > 60 Random Glucose 117 H Hemoglobin A1c % Calcium 8.4 Phosphorus 3.8 Magnesium 2.2 Total Bilirubin 0.7 AST 24 D ALT 91 H D Alkaline Phosphatase 78 Total Protein 6.0 L Albumin 3.4 L Laboratory Tests 10/10/17 10/11/17 10/12/17 19:30 08:21 11:29 Lipase 2216 H 674 H 472 H Active Medications Generic Name Dose Route Start Last Admin Trade Name Freq PRN Reason Stop Dose Admin Acetaminophen 650 mg 10/11/17 11:58 Tylenol - PO Q4H PRN PAIN OR FEVER Albuterol/Ipratropium 1 amp 10/11/17 00:28 Duoneb - NEB Q6H PRN SHORTNESS OF BREATH Budesonide/Formoterol Fumarate 2 puff 10/11/17 22:00 10/12/17 09:32 Symbicort 160/4.5mcg - IH 2 puff BID OTONIEL Administration Clonazepam 4 mg/ Clonazepam 1 5 mg 10/11/17 22:00 10/11/17 21:59 mg PO 5 mg HS OTONIEL Administration Enoxaparin Sodium 40 mg 10/11/17 10:00 10/12/17 09:28 Lovenox - SQ 40 mg DAILY OTONIEL Administration Sodium Chloride 1,000 mls @ 100 mls/hr 10/11/17 11:30 10/11/17 11:30 1/2 Normal Saline IV 100 mls/hr ASDIR OTONIEL Administration Lamotrigine 75 mg 10/11/17 22:00 10/11/17 22:00 Lamictal - PO 75 mg HS OTONIEL Administration Lamotrigine 200 mg 10/11/17 22:00 10/11/17 22:00 Lamictal - PO 200 mg HS OTONIEL Administration Losartan Potassium 50 mg 10/11/17 11:30 10/12/17 09:32 Cozaar - PO 50 mg DAILY OTONIEL Administration Montelukast Sodium 10 mg 10/11/17 22:00 10/11/17 22:01 Singulair - PO 10 mg HS OTONIEL Administration Pantoprazole Sodium 40 mg 10/11/17 12:45 10/12/17 09:28 Protonix - PO 40 mg DAILY OTONIEL Administration Pramipexole Dihydrochloride 1 mg 10/11/17 22:00 10/11/17 22:01 Mirapex - PO 1 mg HS OTONIEL Administration Prednisone 40 mg 10/11/17 12:26 10/12/17 09:29 Deltasone - PO 10/12/17 10:01 40 mg DAILY OTONIEL Administration Prednisone 30 mg 10/13/17 10:00 Deltasone - PO 10/15/17 10:01 DAILY OTONIEL Rosuvastatin Calcium 5 mg 10/11/17 22:00 10/11/17 21:59 Crestor - PO 5 mg HS OTONIEL Administration Tiotropium [place] 1 puff 10/12/17 10:00 10/12/17 09:27 Spiriva - IH 18 mcg DAILY OTONIEL Administration Verapamil HCl 120 mg 10/11/17 22:00 10/11/17 21:59 Calan Sr - PO 120 mg HS OTONIEL Administration Zolpidem Tartrate 5 mg 10/11/17 22:00 10/11/17 22:02 Ambien - PO 10/12/17 21:59 5 mg HS PRN Administration INSOMNIA IMAGING CT scan of abdomen and pelvis with contrast: Possible septal peripancreatic stranding may indicate a mild degree of acute pancreatitis no evidence of bowel structure or acute pathology ultrasound of abdomen: hepatomegaly with diffuse fatty infiltration of liver, there is no evidence of intra or extrahepatic duct dilation ASSESSMENT/PLAN: 1) GI acute pancreatitis - maybe secondary to billary sludge vs steroid induced, lipase is trending downward, no transaminitis noted abdomen less tender on exam. - continue full liquid diet - appreciate GI consult (Rosa) 2) cardiovascular SVT hypertension - continue verapimil strict monitoring - b/p at goal, continue monitoring q4h 3) psych bipolar disorder - continue home dose lamictal and klonopin - medication confirmed with [facility]# [id number] 4) pulmonary Acute COPD exacerbation - Recently discharged from this hospital on 10/08/2017. Continue prednisone as prescribed - continue Symbicort Spiriva and albuterol when necessary 5) Neurology Restless leg syndrome - Continue Mirapex daily 6) Endo Diabetes - Hemoglobin A1c noted 6.9 patient denies any history of diabetes in the past. - Fingersticks before meals and at bedtime with regular insulin coverage F/E/N -full liquid diet - replete electrolytes when necessary PPX - Lovenox - protonix dispo: she requires inpatient admission for acute pancreatitis Visit type - Emergency Visit Emergency Visit: Yes ED Registration Date: 10/11/17 Care time: The patient presented to the Emergency Department on the above date and was hospitalized for further evaluation of their emergent condition. - New Patient This patient is new to me today: No - Critical Care Critical Care patient: No - Discharge Referral Referred to [facility] Med P.C.: No
[2017-10-12] MEDS ORDERED: clonazePAM 0.5 MG TABLET ONE (21:03)
[2017-10-12] MEDS ORDERED: clonazePAM 2 MG TABLET ONE (21:04)
[2017-10-12] MEDS: VERAPAMIL HCL 120 MG E.R. TABLET PO SCH (21:11)
[2017-10-12] MEDS: PRAMIPEXOLE DIHYDROCHLORIDE 1 MG TABLET PO SCH (21:12)
[2017-10-12] MEDS: ROSUVASTATIN CA 5 MG TABLET (FP) PO SCH (21:12)
[2017-10-12] MEDS: lamoTRIgine 25 MG TABLET PO SCH (21:12)
[2017-10-12] MEDS: lamoTRIgine 100 MG TABLET (FP) PO SCH (21:13)
[2017-10-12] MEDS: CLONAZEPAM PO SCH (21:13)
[2017-10-12] MEDS: MONTELUKAST NA 10 MG TABLET PO SCH (21:13)
[2017-10-13 08:32] LABS: BASO % 0.1 % (0-2.0); EOS % 1.2 % (0-4.5); HEMATOCRIT 39.3 % (32.4-45.2); HEMOGLOBIN 13.6 GM/dl (10.7-15.3); LYMPH % 23.2 % (8-40); MCH 30.5 pg (25.7-33.7); MCHC 34.6 g/dl (32.0-36.0); MEAN PLT VOLUME 7.4 fl (7.5-11.1); MONO % 6.2 % (3.8-10.2); NEUT % 69.3 % (42.8-82.8); PLATELET COUNT 265 K/MM3 (134-434); RBC 4.47 M/mm3 (3.60-5.2); RDW 13.6 % (11.6-15.6); WHITE BLOOD COUNT 10.8 K/mm3 (4.0-10.8)
[2017-10-13 08:33] LABS: ALBUMIN 3.4 g/dl (3.5-5.0); ALK PHOS 78 U/L (32-92); AMYLASE 101 U/L (25-125); ANION GAP 9 (8-16); BILIRUBIN,TOTAL 0.9 mg/dl (0.2-1.0); BLOOD UREA NITROGEN 15 mg/dl (7-18); CALCIUM 8.7 mg/dl (8.4-10.2); CHLORIDE 101 mmol/L (98-107); CO2 26 mmol/L (22-28); CREATININE 0.8 mg/dl (0.6-1.3); GLUCOSE,RANDOM 94 mg/dl (74-106); MAGNESIUM 2.1 mg/dL (1.8-2.4); PHOSPHOROUS 4.4 mg/dl (2.5-4.6); POTASSIUM 3.8 mmol/L (3.5-5.1); SGOT/AST 20 U/L (10-42); SGPT/ALT 77 U/L (10-40); SODIUM 136 mmol/L (136-145)
[2017-10-13] MEDS ORDERED: predniSONE 10 MG TABLET (UD) PO SCH (10:00)
[2017-10-13] MEDS ORDERED: PT OWN MED DRAWER 7, Y5N ONE (10:39)
[2017-10-13] MEDS: LOSARTAN POTASSIUM 50 MG TABLET (FP) PO SCH (10:44)
[2017-10-13] MEDS: ENOXAPARIN NA (PORCINE) 40 MG/0.4 ML DISP.SYRIN SQ SCH (10:45)
--- NOTE | 2017-10-13 10:45 | DS ---
Physical Exam: SUBJECTIVE: Patient seen and examined the patient is ambulatory throughout nursing station, and tolerating regular diet, patient denies any abdominal pain. OBJECTIVE:patient is a obese 61-year-old female with a past medical history COPD renal artery aneurysm, bipolar disorder, hyperlipidemia, restless leg syndrome, SVT, laryngeal pharyngeal reflux, GERD, and hypertension. Patient was recently admitted to this hospital on 10/03/2017 to discharged 10/08/2017 for COPD exacerbation. patient reports that on 10/09/2017, she developed sharp abdominal pain with nausea and vomiting. She reports the symptoms continued for 24 hours and then nausea and vomiting worsened within the past 24 hours as a result she sought evaluation in emergency department. patient reports compliance with prescribed medications she denies any alcohol use. ER course was notable for: (1)CT scan of abdomen and pelvis with contrast: Possible septal peripancreatic stranding may indicate a mild degree of acute pancreatitis no evidence of bowel structure or acute pathology (2)amylase 2216 (3)ast/alt 51/117 Vital Signs Period Temp Pulse Resp BP Sys/Jasso Pulse Ox Last 24 Hr 97.7 F-98.2 F 72-75 18-20 102-147/50-91 94-98 PHYSICAL EXAM GENERAL: The patient is awake, alert, and fully oriented, in no acute distress. HEAD: Normal with no signs of trauma. EYES: PERRL, extraocular movements intact, sclera anicteric, conjunctiva clear. ENT: Ears normal, nares patent, oropharynx clear without exudates, moist mucous membranes. NECK: Trachea midline, full range of motion, supple. LUNGS: Breath sounds equal, clear to auscultation bilaterally, no wheezes, no crackles, no accessory muscle use. HEART: Regular rate and rhythm, S1, S2 without murmur, rub or gallop. ABDOMEN: Soft, nontender, nondistended, normoactive bowel sounds, no guarding, no rebound, no hepatosplenomegaly, no masses. EXTREMITIES: 2+ pulses, warm, well-perfused, no edema. NEUROLOGICAL: Cranial nerves II through XII grossly intact. Normal speech, gait not observed. PSYCH: Normal mood, normal affect. SKIN: Warm, dry, normal turgor, no rashes or lesions noted. LABS Laboratory Results - last 24 hr 10/12/17 10/12/17 10/12/17 07:50 11:29 14:49 WBC RBC Hgb Hct MCV MCH MCHC RDW Plt Count MPV Neutrophils % Lymphocytes % Monocytes % Eosinophils % Basophils % Sodium Potassium Chloride Carbon Dioxide Anion Gap BUN Creatinine Creat Clearance w eGFR POC Glucometer 134 Random Glucose Calcium Phosphorus Magnesium Total Bilirubin AST ALT Alkaline Phosphatase Total Protein Albumin Total Amylase 119 D Lipase 472 H TSH 1.11 Free T4 1.23 10/12/17 10/12/17 10/13/17 18:45 21:22 06:28 WBC RBC Hgb Hct MCV MCH MCHC RDW Plt Count MPV Neutrophils % Lymphocytes % Monocytes % Eosinophils % Basophils % Sodium Potassium Chloride Carbon Dioxide Anion Gap BUN Creatinine Creat Clearance w eGFR POC Glucometer 178 123 111 Random Glucose Calcium Phosphorus Magnesium Total Bilirubin AST ALT Alkaline Phosphatase Total Protein Albumin Total Amylase Lipase TSH Free T4 10/13/17 10/13/17 07:50 07:50 WBC 10.8 RBC 4.47 Hgb 13.6 Hct 39.3 MCV 88.0 MCH 30.5 MCHC 34.6 RDW 13.6 Plt Count 265 MPV 7.4 L Neutrophils % 69.3 Lymphocytes % 23.2 Monocytes % 6.2 Eosinophils % 1.2 Basophils % 0.1 Sodium 136 Potassium 3.8 Chloride 101 Carbon Dioxide 26 Anion Gap 9 BUN 15 Creatinine 0.8 Creat Clearance w eGFR > 60 POC Glucometer Random Glucose 94 Calcium 8.7 Phosphorus 4.4 Magnesium 2.1 Total Bilirubin 0.9 D AST 20 ALT 77 H Alkaline Phosphatase 78 Total Protein 6.0 L Albumin 3.4 L Total Amylase 101 Lipase TSH Free T4 Microbiology 10/11/17 14:50 Urine - Urine Clean Catch Urine Culture - Final NO GROWTH OBTAINED IMAGING CT scan of abdomen and pelvis with contrast: Possible septal peripancreatic stranding may indicate a mild degree of acute pancreatitis no evidence of bowel structure or acute pathology ultrasound of abdomen: hepatomegaly with diffuse fatty infiltration of liver, there is no evidence of intra or extrahepatic duct dilation HOSPITAL COURSE: 1) acute pancreatitis - maybe secondary to billary sludge vs steroid induced, lipase trended downward, no transaminitis noted, no abdominal tenderness on exam . - patient tolerating regular diet - GI Dr Lee consulted and followed 2) cardiovascular SVT hypertension - continued verapimil - b/p at goal 3) psych bipolar disorder - continue home dose lamictal and klonopin - medication confirmed with [facility]# [id number] 4) pulmonary Acute COPD exacerbation - Recently discharged from this hospital on 10/08/2017. Continue prednisone as prescribed - continue Symbicort Spiriva and albuterol when necessary 5) Neurology Restless leg syndrome - Continue Mirapex daily 6) Endo Diabetes - Hemoglobin A1c noted 6.9 patient denies any history of diabetes in the past. - Fingersticks before meals and at bedtime with regular insulin coverage during admission - metfomrin upon discharge PLAN: -Discussed with patient's primary care physician Dr. Mancilla, continue metformin 500 mg daily strict follow-up with primary care physician - Strict follow up with GI within 2 weeks - Return precautions reviewed Date of Admission:10/11/17 Date of Discharge: 10/13/17 Minutes to complete discharge: 45 Discharge Summary Reason For Visit: SOB Current Active Problems Acute pancreatitis (Acute) Condition: Stable - Instructions Diet, Activity, Other Instructions: resume diabetic diet continue all medications as prescribed please follow up with GI within 2 weeks continue her fingerstick every morning before eating and please keep a log of your fingersticks please follow-up with your primary care physician Dr. Olson within 2 weeks and please bring her fingerstick log with you If any new or persistent symptoms develop please return to emergency department Referrals: Lico Canela MD [Primary Care Provider] - Aj Olson MD [Staff Physician] - 2 Weeks Dylan Lee MD [Staff Physician] - Disposition: HOME - Home Medications Comprehensive Discharge Medication List: Ambulatory Orders Clonazepam [Klonopin] 5 mg PO HS 05/14/16 Lamotrigine [Lamictal -] 75 mg PO HS 09/30/17 Lamotrigine [Lamictal -] 200 mg PO HS 09/30/17 Pramipexole Dihydrochloride [Mirapex -] 1 mg PO HS 09/30/17 Verapamil HCl [Verapamil ER] 120 mg PO HS 09/30/17 Budesonide/Formeterol Fumarate [SYMBICORT 160/4.5mcg -] 2 puff IH BID #1 inhaler 10/08/17 Montelukast Sodium [Singulair] 10 mg PO HS #30 tablet 10/08/17 Tiotropium [place] [Spiriva] 1 puff IH DAILY #1 cap 10/08/17 Albuterol Sulfate [Proair Respiclick] 90 mcg IH ASDIR PRN 10/10/17 Prednisone 10 mg PO ASDIR 10/10/17 This patient is new to me today: No Emergency Visit: Yes ED Registration Date: 10/11/17 Care time: The patient presented to the Emergency Department on the above date and was hospitalized for further evaluation of their emergent condition. Critical Care patient: No - Discharge Referral Referred to [facility] Med P.C.: Yes Physician Referral: Aj Olson MD (Int Med)
[2017-10-13] MEDS: BUDESONIDE/FORMETEROL FUMARATE 160/4.5 mcg INHALER IH SCH (10:46)
[2017-10-13] MEDS: PANTOPRAZOLE 40 MG TABLET (FP) PO SCH (10:46)
[2017-10-13] MEDS: TIOTROPIUM BROMIDE 18 MCG CAPSULES IH SCH (10:46)
[2017-10-13] MEDS ORDERED: INSULIN SLIDING SCALE (NOVOLOG) 1 VIAL SQ SCH (11:00)
[2017-10-13 14:26] LABS: LIPASE 347 U/L (73-393)
[2017-10-13 14:39] VITALS: BP 131/67; PULSE 80; TEMP 98.4
== END 2017-10-13 16:40 | disposition home or self-care (01) | DRG 439 ==
LOC: SUPCPDRO 18:49 → FER 18:49 → FM/S 10-11 00:04
PROVIDERS: ADMIT Internal Medicine; ATTEND Nurse Practitioner Family
DX: K85.90 Acute pancreatitis without necrosis or infection, unspecified (principal); I47.1 Supraventricular tachycardia; J44.1 Chronic obstructive pulmonary disease with (acute) exacerbation; I10 Essential (primary) hypertension; E78.5 Hyperlipidemia, unspecified; J45.909 Unspecified asthma, uncomplicated; I50.9 Heart failure, unspecified; F31.9 Bipolar disorder, unspecified; G25.81 Restless legs syndrome; E66.9 Obesity, unspecified; Z68.38 Body mass index [BMI] 38.0-38.9, adult; K76.0 Fatty (change of) liver, not elsewhere classified
CPT/HCPCS: 36415; 71045-TC-FY; 74019-TC-FY; 74177-TC; 76705-TC; 80048; 80053; 80061; 80076; 81003; 81015; 82150; 82550; 82962; 83036; 83605; 83690; 83735; 84100; 84439; 84443; 84484; 85025; 85379; 87086; 93005; 99284-25; J7030; J7620

== ENCOUNTER 2018-03-13 20:23 | Emergency (ER) | payer OTHER, BC ==
--- NOTE | 2018-03-13 20:25 | PDOC ---
History of Present Illness - General History Source: Patient Exam Limitations: No Limitations - History of Present Illness Initial Comments: 03/13/18 20:37 A portion of this note was documented by scribe services under my direction. I have reviewed the details of the note, within reason, and agree with the documentation. The case summary and management plan written by me. Assessment and plan: This is a 62-year-old female who comes in complaining of a rash under her left breast. On exam rash appears to be consistent with a candidal/fungal-type infection. Patient given nystatin powder told to use it 3 times a day and follow-up with her primary care doctor in 3-4 days if not improved <Malena Baez I - Last Filed: 03/13/18 20:37> - History of Present Illness Initial Comments: This patient is a 62 year old female with PMHx of COPD, renal artery aneurysm, bipolar disorder, hyperlipidemia, restless leg syndrome, SVT, laryngopharyngeal reflux, GERD, and hypertension, who presents with left breast discomfort since yesterday. Patient states that yesterday she noted some discomfort underneath her left breast and today while taking a shower she noted some redness. She comes into today worried that it may be shingles. Allergies: see nursing notes PCP: Aj Olson Denies fevers ROS General: No fevers or chills, no weakness, no weight loss HEENT: No change in vision. No sore throat, No ear pain Cardiovascular: No chest pain or shortness of breath Respiratory:No cough, or wheezing. Gastrointestinal: No nausea, vomiting, diarrhea or constipation, No rectal bleeding Genitourinary: No dysuria, hematuria, or frequency Musculoskeletal: No joint or muscle pain or swelling Neurologic: No headache, vertigo, dizziness or loss of consciousness Psychiatric: No depression Skin: +underneath left breast redness and discomfort. Endocrine: No increased thirst or abnormal weight change All other systems reviewed and normal PE GENERAL: The patient is awake, alert, and fully oriented, in no acute distress. HEAD: Normal with no signs of trauma. EYES: Pupils equal, round and reactive to light, extraocular movements intact, sclera anicteric, conjunctiva clear. EXTREMITIES: Normal range of motion, no edema. NEUROLOGICAL: Normal speech, normal gait. PSYCH: Normal mood, normal affect. SKIN: Area of erythema with some satellite lesions and some discharge consistent w/ livan. No vesicular lesions, no lesions or discomfort in the dermatome other than the left breast. <Lisa Cook - Last Filed: 03/13/18 20:45> - General Chief Complaint: Pain, Acute Stated Complaint: PAIN DUE TO SHINGLES Time Seen by Provider: 03/13/18 20:25 Past History - Past Medical History Anemia: No Asthma: Yes Cancer: No Cardiac Disorders: No CVA: No COPD: Yes CHF: No Dementia: No Diabetes: No Dialysis: Yes GI Disorders: No Disorders: No HTN: Yes (HTN, diastollic dysfunction) Hypercholesterolemia: Yes Liver Disease: No Psychiatric Problems: Yes Seizures: No Thyroid Disease: No - Surgical History Abdominal Surgery: Yes (Repair of Adhesions) Appendectomy: No Cardiac Surgery: No Cholecystectomy: Yes (LAPAROSCOPIC CHOLECYSTECTOMY) GI Surgery: Yes Lung Surgery: No Neurologic Surgery: No Orthopedic Surgery: Yes (RIGHT KNEE ARTHROSCOPIC SURGERY) - Immunization History Td Vaccination: Yes Immunization Up to Date: No - Suicide/Smoking/Psychosocial Hx Smoking Status: No Smoking History: Never smoked Have you smoked in the past 12 months: No Number of Cigarettes Smoked Daily: 0 Hx Alcohol Use: No Drug/Substance Use Hx: No Substance Use Type: None Hx Substance Use Treatment: No <Malena Baez I - Last Filed: 03/13/18 20:37> <Lisa Cook - Last Filed: 03/13/18 20:45> - Past Medical History Allergies/Adverse Reactions: Allergies Allergy/AdvReac Type Severity Reaction Status Date / Time ketorolac tromethamine AdvReac Severe Vomiting Verified 03/13/18 20:37 [From Toradol] lurasidone HCl [From Latuda] AdvReac Severe DEPRESSIVE Verified 03/13/18 20:37 oxycodone HCl [From Percocet] AdvReac Severe Vomiting Verified 03/13/18 20:37 propoxyphene napsylate AdvReac Severe Vomiting Verified 03/13/18 20:37 [From Darvocet-N] (severe) Home Medications: Ambulatory Orders Clonazepam [Klonopin] 5 mg PO HS 05/14/16 Lamotrigine [Lamictal -] 75 mg PO HS 09/30/17 Lamotrigine [Lamictal -] 200 mg PO HS 09/30/17 Pramipexole Dihydrochloride [Mirapex -] 1 mg PO HS 09/30/17 Verapamil HCl [Verapamil ER] 120 mg PO HS 09/30/17 Budesonide/Formeterol Fumarate [SYMBICORT 160/4.5mcg -] 2 puff IH BID #1 inhaler 10/08/17 Montelukast Sodium [Singulair] 10 mg PO HS #30 tablet 10/08/17 Tiotropium Finley [Spiriva] 1 puff IH DAILY #1 cap 10/08/17 Albuterol Sulfate [Proair Respiclick] 90 mcg IH ASDIR PRN 10/10/17 Prednisone 10 mg PO ASDIR 10/10/17 Acetaminophen [Tylenol .Regular Strength -] 650 mg PO Q4H PRN tablet 10/13/17 Blood Sugar Diagnostic [Test Strips] 1 each MC DAILY #30 strip 10/13/17 Blood-Glucose Meter, Drum-Type [Accu-Chek] 1 each MC DAILY #1 kit 10/13/17 Lancets [Accu-Chek] 1 each MC DAILY #1 each 10/13/17 metFORMIN XR [Glucophage Xr -] 500 mg PO DAILY@0700 #30 tab.sr.24h 10/13/17 Nystatin Powder [Nystop Powder -] 15 gm TP TID #1 canister 03/13/18 Review of Systems - Review of Systems Comments:: 03/13/18 20:45 see HPI <Lisa Cook - Last Filed: 03/13/18 20:45> *Physical Exam - Vital Signs Last Vital Signs Temp Pulse Resp BP Pulse Ox 98.1 F 91 H 18 136/89 98 03/13/18 20:32 03/13/18 20:32 03/13/18 20:32 03/13/18 20:32 03/13/18 20:32 - Physical Exam Comments: 03/13/18 20:45 see HPI <Lisa Cook - Last Filed: 03/13/18 20:45> *DC/Admit/Observation/Transfer <Malena Baez I - Last Filed: 03/13/18 20:37> - Attestations Scribe Attestion: 03/13/18 20:45 Documentation prepared by Lisa Joey, acting as medical driver for Malena Baez MD. <Lisa Cook - Last Filed: 03/13/18 20:45> Diagnosis at time of Disposition: Candidal dermatitis - Discharge Dispostion Condition at time of disposition: Stable - Prescriptions Prescriptions: Nystatin Powder [Nystop Powder -] 15 gm TP TID #1 canister - Referrals Referrals: Aj Olson MD [Primary Care Provider] - - Patient Instructions Additional Instructions: Apply the nystatin powder to the area 3 times a day until rash and symptoms have resolved Return or see her primary care doctor if rash worsens you develop any fevers or increasing pain. Return to the emergency department immediately with ANY new, persistent or worsening symptoms. Continue any medications as previously prescribed by your physician. You should follow up with your primary doctor as soon as possible regarding today's emergency department visit. . Please make sure your doctor reviews the results of your emergency evaluation. Thank you for coming to the Emergency Department today for your care. It was a pleasure to see you today. Please note that your evaluation is INCOMPLETE until you follow-up with your doctor. - Post Discharge Activity
[2018-03-13 21:21] VITALS: BP 136/89; PULSE 91; TEMP 98.1; BMI 34.4
== END 2018-03-13 20:41 | disposition home or self-care (01) ==
LOC: FER 20:23
DX: L30.8 Other specified dermatitis (principal); J44.9 Chronic obstructive pulmonary disease, unspecified; I10 Essential (primary) hypertension; E78.00 Pure hypercholesterolemia, unspecified; F99 Mental disorder, not otherwise specified
CPT/HCPCS: 99281-25

== ENCOUNTER 2018-12-22 11:55 | Emergency (ER) | payer BC, OTHER ==
[2018-12-22 12:11] VITALS: BP 123/63; PULSE 80; TEMP 98.7; BMI 35.9
--- NOTE | 2018-12-22 12:16 | PDOC ---
History of Present Illness - General Chief Complaint: Cold Symptoms Stated Complaint: COUGH Time Seen by Provider: 12/22/18 12:06 History Source: Patient Exam Limitations: No Limitations - History of Present Illness Initial Comments: 12/22/18 13:10 63 YOF with past medical history COPD, asthma, diastolic dysfunction, renal artery aneurysm, bipolar disorder, hyperlipidemia, restless leg syndrome, SVT, laryngeal pharyngeal reflux, GERD, pancreatitis, and hypertension, endometriosis s/p multiple abdominal surgeries, chronic back pain with spinal stimulator for incontinence presenting with nonproductive cough x 2-3 weeks associated with hoarse voice, shortess of breath and chest tightness with episodes; no f/c, congestion. No alleviating or exacerbating factors. No recent illnesses or sick contacts. No allergens or environmental triggers. She has tried salt water gargles, tea, albuterol inhaler as needed, without relief. Currently not on maintenance medications and unable to take steroids due to side effect profile previously. tolerating oral and fluid intake. In addition, pt admits to periods of syncope and increased forgetfulness/ amnesia x 2-3 weeks, but intermittently x months. She admits to periods of falling asleep and blacking out, while in the kitchen, while driving or getting up from sitting position on the couch. While coming to the ED, she felt unsteady and stumbled with associated dizziness/lightheadedness. Denies fever, chills,palpitation, weakness, N, V, D, abdominal pain, bladder and bowel problems, leg swelling. No new changes in medications. She has had 5 lbs of intentional weight loss, no sweats or weakness or focal symptoms. Allergies: None PAST MEDICAL HISTORY: see hpi PAST SURGICAL HISTORY:laparotomy/lyses of adhesions, March 2014. Cholecystectomy (laparoscopic) 2010. Hysterectomy (partial 1989). Breast implants/removed (2002) Social history: Lives with family. No tobacco, ETOH or drug use. Meds: as documented in EMR: lamotrigine, lithium, doxepin, clonazepam, losartan , pramipexole, verapamil, crestor. PMD: Fader 12/22/18 13:11 12/22/18 13:11 12/22/18 13:11 12/22/18 13:20 Past History - Past Medical History Allergies/Adverse Reactions: Allergies Allergy/AdvReac Type Severity Reaction Status Date / Time ketorolac tromethamine AdvReac Severe Vomiting Verified 03/13/18 20:37 [From Toradol] lurasidone HCl [From Latuda] AdvReac Severe DEPRESSIVE Verified 03/13/18 20:37 oxycodone HCl [From Percocet] AdvReac Severe Vomiting Verified 03/13/18 20:37 propoxyphene napsylate AdvReac Severe Vomiting Verified 03/13/18 20:37 [From Darvocet-N] (severe) Home Medications: Ambulatory Orders Clonazepam [Klonopin] 1 mg PO HS 05/14/16 Lamotrigine [Lamictal -] 75 mg PO HS 09/30/17 Lamotrigine [Lamictal -] 200 mg PO HS 09/30/17 Pramipexole Dihydrochloride [Mirapex -] 1 mg PO HS 09/30/17 Verapamil HCl [Verapamil ER] 120 mg PO HS 09/30/17 Albuterol Sulfate [Proair Respiclick] 90 mcg IH ASDIR PRN 10/10/17 Azithromycin 250 mg PO DAILY #4 tablet 12/22/18 Doxepin HCl [Sinequan -] 10 mg PO DAILY 12/22/18 Anemia: No Asthma: Yes Cancer: No Cardiac Disorders: No CVA: No COPD: Yes CHF: No Dementia: No Diabetes: No Dialysis: Yes GI Disorders: No Disorders: No HTN: Yes (HTN, diastollic dysfunction) Hypercholesterolemia: Yes Liver Disease: No Psychiatric Problems: Yes Seizures: No Thyroid Disease: No - Surgical History Abdominal Surgery: Yes (Repair of Adhesions) Appendectomy: No Cardiac Surgery: No Cholecystectomy: Yes (LAPAROSCOPIC CHOLECYSTECTOMY) GI Surgery: Yes Lung Surgery: No Neurologic Surgery: No Orthopedic Surgery: Yes (RIGHT KNEE ARTHROSCOPIC SURGERY) - Immunization History Td Vaccination: Yes Immunization Up to Date: No - Suicide/Smoking/Psychosocial Hx Smoking Status: No Smoking History: Never smoked Have you smoked in the past 12 months: No Number of Cigarettes Smoked Daily: 0 Information on smoking cessation initiated: No Hx Alcohol Use: No Drug/Substance Use Hx: No Substance Use Type: None Hx Substance Use Treatment: No Review of Systems - Review of Systems Able to Perform ROS?: Yes Comments:: 12/22/18 13:10 Review of systems Constitutional: no fevers or chills. HEENT: no headache . No congestion. No visual/hearing disturbances. +dizziness, +hoarse voice. CVS: +chest tightness, +syncope Resp: +dyspnea, +cough Gastrointestinal: no abdominal pain, nausea or vomiting. Genitourinary: no urinary sx, hematuria. no dysuria, urgency or frequency. + chronic incontinence. MUSCULOSKELETAL: No joint pain and swelling. No neck or back pain. SKIN: no redness or skin changes, no discharge, no rash. No wounds. Hematologic: no easy bruising/bleeding. NEUROLOGIC: +dizziness, +amnesia, +forgetfulness. No headache, altered mental status. No weakness, numbness or tingling. Psych: +bipolar history Allergic/Immunologic: +medication allergies All other systems reviewed and negative, or as documented in HPI. 12/22/18 13:11 12/22/18 13:12 *Physical Exam - Vital Signs Last Vital Signs Temp Pulse Resp BP Pulse Ox 98.7 F 80 20 123/63 96 12/22/18 11:58 12/22/18 11:58 12/22/18 11:58 12/22/18 11:58 12/22/18 11:58 - Physical Exam Comments: 12/22/18 13:13 Physical exam: General: Well appearing, awake and alert, NAD. +coughing periodically HEENT: NCAT, PERRL, EOMI, clear conjunctiva, anicteric, moist mucus membranes, clear oropharynx, no oral lesions.. normal phonation. uvula midline. airway patent Neck: neck supple, FROM Resp: CTAB, normal and even respirations, no respiratory distress CVS: RRR, no murmurs, 2+ peripheral pulses throughout, no peripheral edema Abdomen: soft, NTND, no peritoneal signs. Obese. Back: nontender, normal inspection and ROM MSK: no edema, CAZARES x4, ROM intact. No clubbing or cyanosis. normal bulk and tone. Extrem: no calf tenderness bilaterally Neuro: alert, no focal neuro deficits. speech clear, oriented appropriately. CN II-XII grossly intact. Psych: calm and cooperative Skin: warm and well perfused, cap refill <2 sec, normal color 12/22/18 14:30 ED Treatment Course - LABORATORY CBC & Chemistry Diagram: 12/22/18 12:53 12/22/18 12:53 Medical Decision Making - Medical Decision Making 12/22/18 13:14 See HPI for details. Prior notes reviewed, including admissions, discharges and consultations. Vital signs reviewed, wnl. Vital Signs Temp Pulse Resp BP Pulse Ox 98.7 F 80 20 123/63 96 12/22/18 11:58 12/22/18 11:58 12/22/18 11:58 12/22/18 11:58 12/22/18 11:58 DDx: considered interval abnormalities including short QTC or long QT syndrome, WPW, conduction abnormality, Brugada, ACS, PE, electrolyte disturbances, metabolic derangement. seizure, PHOTOGRAPHIC SPECIALIST lesion, CVA, ICH. Pneumonia, infection, pleurisy, bronchitis, COPD, pulmonary edema, Asthma exacerbation, Anemia. Considered but clinically doubt based on HPI and PE: laboratory results and imaging reviewed, basic labs and lytes wnl, VBG normal, no retention, acidosis or alkalosis. CXR_no acute chest pathology, normal cardiac silhouette CT head neg for CVA or mass lesion or bleed Cardiac panel_neg trop, x1, reassuring, less likely acs, no cp or sob or recurrence of sx. EKG normal sinus rhythm at 76 bpm, no interval abnormalities, narrow QRS, ST and T wave segments and morphology normal. Nonspecific T wave abnormalities - unchanged ED course: no acute events. -interventions: duonebs, x3, azithromycin, reassess 12/22/18 14:06 - feels much improved. breathing comfortably, occ coughing. airway patent d/w Dr Olson with clinical course and workup, advised to f/u neurology at [facility] Dr Ramirez, results of CT provided also advised pulm followup, referrals, given COPD vs asthma history and currently not on maintenance meds. avoid triggers, supportive measures and care. avoid driving or operating machinery, until cleared for syncope workup, which is likely neurologic without acute PHOTOGRAPHIC SPECIALIST pathology or cardiac etiology or symptoms and workup here. Pt to be discharged in stable condition. Patient made aware of clinical impression, treatment recommendations and disposition plan, return precautions discussed (including but not limited to new or persistent/worsening symptoms, pain, fevers, or signs of infection, chest pain, respiratory distress, inability to tolerate oral intake, dehydration, syncope, or neurologic changes) . Follow up with PMD and/or specialists as recommended, follow up information provided, take medications as instructed for duration of time. continue with supportive care, avoid triggers and precipitants. All questions answered to patient's satisfaction and expressed understanding and comfort with this. At the time of discharge, the patient is alert, clinically improved, tolerating po and verbalizes understanding of instructions, satisfied with the care received and felt comfortable with the plan. Patient does not suffer from an acute life- threatening medical condition at this time and is safe for outpatient follow- up. 12/22/18 14:30 12/22/18 14:32 12/22/18 14:33 *DC/Admit/Observation/Transfer Diagnosis at time of Disposition: Bronchitis, Cough, Syncope - Discharge Dispostion Disposition: HOME Condition at time of disposition: Improved Decision to Admit order: No - Prescriptions Prescriptions: Azithromycin 250 mg PO DAILY #4 tablet - Referrals Referrals: Aj Olson MD [Staff Physician] - Esequiel Giordano MD [Staff Physician] - Lico Canela MD [Staff Physician] - David Denise MD [Staff Physician] - Brandon Chandler MD [Staff Physician] - - Patient Instructions Printed Discharge Instructions: DI for Syncope in Adults (Fainting), DI for Acute Bronchitis Additional Instructions: 1) Please follow-up with your primary care doctor in the next 1 week. Please call tomorrow for for any urgent issues. you must also see your neurologist, Dr Ramirez at [facility] You should also see a behavioral health professional for further testing whether you have asthma/ COPD and require inhaler maintenance therapy 2) You were given a copy of the tests performed today. Please bring the results with you and review them with your primary care doctor. Your laboratory / imaging results were normal, your chest x ray was negative for infection or pneumonia 3) If you have any worsening of symptoms or any other concerns please return to the ED immediately. Return if worsening symptoms including fevers, headache, vomiting, visual or hearing disturbances, abdominal pain, chest pain, shortness of breath, syncope, dehydration, inability to take things by mouth/vomiting, altered mental status, or worsening concerning symptoms. 4) Please continue taking your home medications as directed. your medications on discharge include azithromycin antibiotics x 4 more days for the bronchitis and your underlying respiratory symptoms/comorbidities . side effects may include upset stomach, abdominal pain, vomiting, or diarrhea. do not drink alcohol with your medications. salt water gargles, 1-2 spoonful of honey and warm lemon tea is appropriate as well for soothing qualities for sore throat/cough. minimize spread of infection given contagious nature, and cover your mouth and wash your hands adequately with soap and water. Stay well hydrated and rest. Cool air - walk around outdoors in the evening. May also try hot shower steam. This can alleviate the congestion and cough. May use the albuterol inhaler every 4-6 hours as needed for cough and breathing to clear up your airways. Return precautions include respiratory distress, difficulty breathing, cyanosis , chest pain, lethargy, confusion, dehydration, high fevers or pain. HOME CARE INSTRUCTIONS: Have someone stay with you until you feel stable. Do not drive, operate machinery, or play sports until your caregiver says it is okay. Keep all follow-up appointments as directed by your caregiver. Lie down right away if you start feeling like you might faint. Breathe deeply and steadily. Wait until all the symptoms have passed.Drink enough fluids to keep your urine clear or pale yellow. If you are taking blood pressure or heart medicine, get up slowly, taking several minutes to sit and then stand. This can reduce dizziness. SEEK IMMEDIATE MEDICAL CARE IF: You have a severe headache. You have unusual pain in the chest, abdomen, or back. You are bleeding from the mouth or rectum, or you have a black or tarry stool. You have an irregular or very fast heartbeat. You have pain with breathing. You have repeated fainting or seizure-like jerking during an episode. You faint when sitting or lying down. You have confusion. You have difficulty walking. You have severe weakness. You have vision problems. If you fainted, call your local emergency services - do not drive yourself to the hospital. - Post Discharge Activity
[2018-12-22 13:17] LABS: BASO % 0.5 % (0-2.0); EOS % 3.9 % (0-4.5); HEMATOCRIT 40.8 % (32.4-45.2); HEMOGLOBIN 13.3 GM/dl (10.7-15.3); LYMPH % 15.8 % (8-40); MCH 28.3 pg (25.7-33.7); MCHC 32.5 g/dl (32.0-36.0); MEAN CELL VOLUME 86.9 fl (80-96); MEAN PLT VOLUME 8.2 fl (7.5-11.1); MONO % 4.7 % (3.8-10.2); NEUT % 75.1 % (42.8-82.8); PLATELET COUNT 311 K/MM3 (134-434); RBC 4.69 M/mm3 (3.60-5.2); RDW 13.1 % (11.6-15.6); WHITE BLOOD COUNT 10.6 K/mm3 (4.0-10.8)
[2018-12-22 13:26] LABS: BILIRUBIN,TOTAL 0.5 mg/dl (0.2-1); CALCIUM 8.8 mg/dl (8.5-10); CREATININE 0.7 mg/dl (0.55-1.3); POTASSIUM 3.8 mmol/L (3.5-5.1); TOT PROT 6.9 g/dl (6.4-8.2)
[2018-12-22] MEDS ORDERED: ALBUTEROL SO4 2.5/IPRATROPIUM 0.5 INH SOL 3 ML VIAL.NEB. NEB ONE ×2 (13:28→13:48)
[2018-12-22] MEDS: ALBUTEROL SO4 2.5/IPRATROPIUM 0.5 INH SOL 3 ML VIAL.NEB. NEB SCH ×2 (13:33→13:48)
[2018-12-22 13:54] LABS: VENOUS PC02 40.1 mmHg (41-51); VENOUS PH 7.42 (7.31-7.41); VENOUS PO2 47.5 mmHg (30-40)
[2018-12-22] MEDS ORDERED: AZITHROMYCIN 250 MG TABLET PO ONE (14:16)
[2018-12-22] MEDS ORDERED: AZITHROMYCIN 500 MG TABLET ONE (14:45)
--- NOTE | 2018-12-23 15:20 | EKG ---
Test Reason : Blood Pressure : / mmHG Vent. Rate : 076 BPM Atrial Rate : 076 BPM P-R Int : 172 ms QRS Dur : 100 ms QT Int : 386 ms P-R-T Axes : 048 -03 033 degrees QTc Int : 434 ms NORMAL SINUS RHYTHM INFERIOR INFARCT (CITED ON OR BEFORE 30-JUN-2016) ABNORMAL ECG WHEN COMPARED WITH ECG OF 10-OCT-2017 20:08, NO SIGNIFICANT CHANGE WAS FOUND Confirmed by MD Jacobo, Trey ([id number]) on 12/23/2018 3:20:47 PM Referred By: Confirmed By:Trey Centeno MD
== END 2018-12-22 14:54 | disposition home or self-care (01) ==
LOC: FER 11:55
PROC: 3E0F7GC Introduction of Other Therapeutic Substance into Respiratory Tract, Via Natural or Artificial Opening (ICD-10-PCS; principal; 2018-12-22)
DX: J40 Bronchitis, not specified as acute or chronic (principal); R55 Syncope and collapse; R05 Cough; I10 Essential (primary) hypertension; E78.00 Pure hypercholesterolemia, unspecified; F31.9 Bipolar disorder, unspecified
CPT/HCPCS: 36415; 70450-TC; 71046-TC-FY; 80053; 82803; 83735; 83880; 84484; 85025; 93005; 99282-25

== ENCOUNTER 2019-06-22 15:55 | Emergency (ER) | payer BC, OTHER ==
--- NOTE | 2019-06-22 16:04 | PDOC ---
History of Present Illness - General Chief Complaint: Respiratory Stated Complaint: STRIDOR Time Seen by Provider: 06/22/19 15:57 History Source: Patient Exam Limitations: No Limitations - History of Present Illness Initial Comments: 06/22/19 16:00 64y F with PMH of [place], Renal artery aneurysm, HLD, HTN, Asthma/COPD, GERD, Depression presenting from PMD office for evaluation of stridor. Pt had cough and lost her voice 3m ago. Pt had a cough which has been on and off for 3 months and had hoarseness of her voice 3 months ago. Two weeks ago she started to have an FB sensation in her neck and feelings of breathing difficulty x weeks. Also endorses difficulty with swallowing. She saw ENT (Dr. Man) last month with negative endoscopic findings. She was advised to take steroids but she has not due to her other medications. Pt states her voice has been hoarse and she feels like something is stuck in her throat. Denies chest pain, headache, sore throat, neck pain, injuries, n/v/d, abdominal pain, regurgitation , halitosis. PMD: [facility] PMH: see hpi Meds: see med rec Allergies: see allergy list Past History - Past Medical History Allergies/Adverse Reactions: Allergies Allergy/AdvReac Type Severity Reaction Status Date / Time ketorolac tromethamine AdvReac Severe Vomiting Verified 03/13/18 20:37 [From Toradol] lurasidone HCl [From Latuda] AdvReac Severe DEPRESSIVE Verified 03/13/18 20:37 oxycodone HCl [From Percocet] AdvReac Severe Vomiting Verified 03/13/18 20:37 propoxyphene napsylate AdvReac Severe Vomiting Verified 03/13/18 20:37 [From Darvocet-N] (severe) Home Medications: Ambulatory Orders Clonazepam [Klonopin] 1 mg PO HS 05/14/16 Lamotrigine [Lamictal -] 75 mg PO HS 09/30/17 Lamotrigine [Lamictal -] 200 mg PO HS 09/30/17 Pramipexole Dihydrochloride [Mirapex -] 1 mg PO HS 09/30/17 Verapamil HCl [Verapamil ER] 120 mg PO HS 09/30/17 Albuterol Sulfate [Proair Respiclick] 90 mcg IH ASDIR PRN 10/10/17 Azithromycin 250 mg PO DAILY #4 tablet 12/22/18 Doxepin HCl [Sinequan -] 10 mg PO DAILY 12/22/18 predniSONE [Deltasone -] 60 mg PO DAILY 4 Days #12 tablet 06/22/19 Anemia: No Asthma: Yes Cancer: No Cardiac Disorders: No CVA: No COPD: Yes CHF: No Dementia: No Diabetes: No Dialysis: Yes GI Disorders: No Disorders: No HTN: Yes (HTN, diastollic dysfunction) Hypercholesterolemia: Yes Liver Disease: No Psychiatric Problems: Yes Seizures: No Thyroid Disease: No - Surgical History Abdominal Surgery: Yes (Repair of Adhesions) Appendectomy: No Cardiac Surgery: No Cholecystectomy: Yes (LAPAROSCOPIC CHOLECYSTECTOMY) GI Surgery: Yes Lung Surgery: No Neurologic Surgery: No Orthopedic Surgery: Yes (RIGHT KNEE ARTHROSCOPIC SURGERY) - Immunization History Td Vaccination: Yes Immunization Up to Date: No - Psycho Social/Smoking Cessation Hx Smoking Status: No Smoking History: Never smoked Have you smoked in the past 12 months: No Number of Cigarettes Smoked Daily: 0 Hx Alcohol Use: No Drug/Substance Use Hx: No Substance Use Type: None Hx Substance Use Treatment: No Review of Systems - Review of Systems Constitutional: No: Symptoms Reported HEENTM: Yes: See HPI Respiratory: Yes: See HPI Cardiac (ROS): No: Symptoms Reported ABD/GI: No: Symptoms Reported Musculoskeletal: No: Symptoms Reported Integumentary: No: Symptoms Reported Neurological: No: Symptoms reported *Physical Exam - Physical Exam General Appearance: Yes: Appropriately Dressed, Obese. No: Apparent Distress HEENT: positive: EOMI, MARCIE, TMs Normal, Pharynx Normal. negative: Pharyngeal Erythema, Tonsillar Exudate, Tonsillar Erythema, Lesions, Excessive drooling, Thrush Neck: positive: Trachea midline, Supple. negative: Carotid bruit, Stridor, Lymphadenopathy (R), Lymphadenopathy (L) Respiratory/Chest: positive: Lungs Clear, Normal Breath Sounds. negative: Crackles, Rales, Rhonchi, Stridor, Wheezing Cardiovascular: positive: Regular Rhythm, Regular Rate, S1, S2. negative: Edema , JVD, Murmur Gastrointestinal/Abdominal: positive: Normal Bowel Sounds, Soft. negative: Tender Musculoskeletal: negative: CVA Tenderness Extremity: positive: Normal Capillary Refill. negative: Pedal Edema Integumentary: positive: Normal Color, Dry, Warm Neurologic: positive: cloud services architect II-XII NML intact, Fully Oriented, Alert, Normal Mood/ Affect, Normal Response, Motor Strength 09/17 ED Treatment Course - LABORATORY CBC & Chemistry Diagram: 06/22/19 16:40 06/22/19 16:40 Medical Decision Making - Medical Decision Making 06/22/19 18:42 64y F presenting with difficulty breathing, sensation of nodules and stridor. vitals wnl. no stridor, breathing comfortable, no focal exam findings. Negative endoscopy in May; ENT recommending steroids. ddx includes but not limited to mass/malignancy, inflammation, nodules, esophageal diverticulum. Previous CT showed L parotid nodule. will give albuterol treatment basic labs, CT soft tissue with IV contrast. labs wnl. vitals wnl. pt laying down flat in bed without tachypnea, stridor. pending CT scan. pt had CT scan done last month showing 1.5cm parotid nodule with f/u CT scan recommended by ENT in several months. will cancel CT. Calling back Dr Olson office with findings. will give 60mg prednisone here in ER and rx for 4 days. pt agrees with plan. dc home. pmd and ent f/u Discharge - Discharge Information Problems reviewed: Yes Clinical Impression/Diagnosis: Laryngitis Condition: Good - Admission No - Additional Discharge Information Prescriptions: predniSONE [Deltasone -] 60 mg PO DAILY 4 Days #12 tablet - Follow up/Referral Referrals: Aj Olson MD [Primary Care Provider] - - Patient Discharge Instructions Patient Printed Discharge Instructions: DI for Laryngitis Additional Instructions: You most likely have laryngitis. A prescription for prednisone was sent to your pharmacy. Take 3 tablets by mouth daily for 4 days. I recommend following up with Dr. Olson next week and ENT as directed. Please come back to the emergency room if you have worsening stridor, are unable to swallow, have difficulty breathing or if any new or concerning symptom develops. Thank you - Post Discharge Activity
[2019-06-22] MEDS ORDERED: ALBUTEROL SO4 0.083% IH SOL 2.5 MG/3 ML VIAL.NEB. NEB ONE ×2 (16:19→16:25)
[2019-06-22 16:24] VITALS: BP 128/73; PULSE 74; TEMP 97.3; BMI 36.4
--- NOTE | 2019-06-22 16:27 | PDOC ---
Attending Attestation - Resident Resident Name: Katelin Larose - ED Attending Attestation I have performed the following: I have examined & evaluated the patient, The case was reviewed & discussed with the resident, I agree w/resident's findings & plan - HPI HPI: 06/22/19 16:26 64y F with PMH Guillan-[place], Renal artery aneurysm, depression, HLD, GERD, HTN , Asthma/COPD presenting from PMD office for evaluation of stridor and hoarse voice.. Lost voice 3m ago which her doctor believed as laryngitis. saw ent s/p rhinoscope which was unremarkable. difficulty swallowing and breathing x2 weeks. she continues to feel a "nodule" in her throat. Saw Dr. Man (ENT) where rhinoscope and nasal endoscopy ~3 weeks ago with left parotid nodule and nasal turbinate hypertrophy; CT chest was normal 06/22/19 18:20 06/22/19 18:50 - Physicial Exam PE: 06/22/19 16:26 Agree with the resident's HPI and PE as documented in the electronic medical record. NAD, well appearing, EOMI, PERRL, nl conjunctiva, anicteric; oral mucosa moist , clear oropharynx. uvula midline. hoarse voice. airway patent neck supple. lungs clear, RRR, abdomen soft nontender. no rebound, guarding. Back nontender. CAZARES x4, no focal neuro deficits. No peripheral edema. normal color for ethnicity, WWP. 06/22/19 18:19 - Medical Decision Making 06/22/19 16:27 Vital Signs Temp Pulse Resp BP Pulse Ox 97.3 F L 74 18 128/73 98 06/22/19 15:56 06/22/19 15:56 06/22/19 15:56 06/22/19 15:56 06/22/19 15:56 ddx. pharyngitis, laryngitis, bronchitis, airway obstruction/inflammation, edema VS reviewed, wnl. nontoxic appearing. normal sats, no respiratory distress. reviewed PMD and ENT note. CT soft tissue neck and chest done recently. with incidental parotid gland nodule, which will need followup imaging in a few months per ENT note. this has been present x 3 months, a/w cough and hoarse voice labs and lytes wnl.' jt secretions. airway patent. no stridor here start steroids, as was pmd plan, call to Dr Wesley AKINS stable condition. 06/22/19 18:21 06/22/19 18:51
[2019-06-22 17:03] LABS: MEAN PLT VOLUME 7.9 fl (7.5-11.1); MONO % 5.3 % (3.8-10.2)
[2019-06-22 17:05] LABS: BASO % 0.4 % (0-2.0); EOS % 3.2 % (0-4.5); HEMATOCRIT 40.4 % (32.4-45.2); HEMOGLOBIN 14.2 GM/dl (10.7-15.3); LYMPH % 15.9 % (8-40); MCH 32.5 pg (25.7-33.7); MCHC 35.1 g/dl (32.0-36.0); MEAN CELL VOLUME 92.5 fl (80-96); NEUT % 75.2 % (42.8-82.8); PLATELET COUNT 322 K/MM3 (134-434); RBC 4.36 M/mm3 (3.60-5.2); RDW 12.4 % (11.6-15.6); WHITE BLOOD COUNT 12.1 K/mm3 (4.0-10.8)
[2019-06-22 17:14] LABS: ALBUMIN 4.1 g/dl (3.4-5.0); BILIRUBIN,TOTAL 0.5 mg/dl (0.2-1); CALCIUM 9.2 mg/dl (8.5-10); CREATININE 0.7 mg/dl (0.55-1.3); POTASSIUM 4.2 mmol/L (3.5-5.1); TOT PROT 7.5 g/dl (6.4-8.2)
[2019-06-22] MEDS ORDERED: predniSONE 20 MG TABLET (UD) PO ONE (19:04)
[2019-06-22] MEDS ORDERED: predniSONE 20 MG TABLET (UD) ONE (19:11)
== END 2019-06-22 19:26 | disposition home or self-care (01) ==
LOC: FER 15:55
PROC: 3E0F7GC Introduction of Other Therapeutic Substance into Respiratory Tract, Via Natural or Artificial Opening (ICD-10-PCS; principal; 2019-06-22)
DX: J04.0 Acute laryngitis (principal); Z88.8 Allergy status to other drugs, medicaments and biological substances; I10 Essential (primary) hypertension; J45.909 Unspecified asthma, uncomplicated; Z99.2 Dependence on renal dialysis
CPT/HCPCS: 36415; 80053; 85025; 99283-25

== ENCOUNTER 2020-06-10 10:36 | Observation (INO) | payer BC, OTHER ==
[2020-06-10 10:46] VITALS: BP 136/63; PULSE 71; TEMP 97.6; BMI 31.9
[2020-06-10] MEDS ORDERED: ACETAMINOPHEN 1000 MG/100 ML VIAL (NON FORMULARY) IVPB ONE (11:21)
[2020-06-10] MEDS ORDERED: ACETAMINOPHEN INJECTION 100 ML IVPB ONE (11:37)
[2020-06-10 11:40] LABS: BASO % 1.6 % (0-2.0); HEMATOCRIT 42.7 % (32.4-45.2); HEMOGLOBIN 14.4 GM/dl (10.7-15.3); LYMPH % 9.8 % (8-40); MCH 28.9 pg (25.7-33.7); MCHC 33.7 g/dl (32.0-36.0); MEAN CELL VOLUME 85.6 fl (80-96); MEAN PLT VOLUME 8.4 fl (7.5-11.1); MONO % 6.8 % (3.8-10.2); NEUT % 79.8 % (42.8-82.8); PLATELET COUNT 255 K/MM3 (134-434); RBC 4.99 M/mm3 (3.60-5.2); RDW 13.4 % (11.6-15.6); WHITE BLOOD COUNT 8.9 K/mm3 (4.0-10.8)
[2020-06-10 11:53] LABS: ACTIVATED PTT 27.3 SECONDS (25.2-36.5)
[2020-06-10 11:55] LABS: ALBUMIN 4.2 g/dl (3.4-5.0); BILIRUBIN,TOTAL 0.9 mg/dl (0.2-1); CREATININE 0.8 mg/dl (0.55-1.3); POTASSIUM 4.2 mmol/L (3.5-5.1)
[2020-06-10 11:58] LABS: INR 1.2 (0.82-1.09); PROTHROMBIN TIME (PATIENT) 13.3 SEC (10.2-13.0)
[2020-06-10] MEDS ORDERED: SODIUM CHLORIDE 500 ML IV ONE (12:16)
[2020-06-10 12:23] LABS: EPITHELIAL CELLS FEW /hpf
[2020-06-10] MEDS ORDERED: morphine CARPU-JECT 4 MG/1 ML DISP.SYRIN IVPUSH ONE (13:40)
[2020-06-10] MEDS ORDERED: ONDANSETRON 4 MG/2 ML VIAL IVPB ONE (13:40)
[2020-06-10] MEDS ORDERED: ONDANSETRON 4 MG/2 ML VIAL ONE (13:42)
[2020-06-10] MEDS ORDERED: SODIUM CHLORIDE 500 ML IV STA (13:42)
[2020-06-10] MEDS ORDERED: morphine SULFATE 4 MG/ML VIAL ONE (13:56)
[2020-06-10] MEDS ORDERED: clonazePAM 0.5 MG TABLET PO PRN (15:06)
[2020-06-10] MEDS ORDERED: DEXTROSE 5%-0.45% SALINE 1,000 ML IV SCH (15:15)
[2020-06-10] MEDS ORDERED: ACETAMINOPHEN 1000 MG/100 ML VIAL (NON FORMULARY) IVPB PRN (15:46)
[2020-06-10] MEDS ORDERED: LITHIUM CARBONATE 150 MG CAPSULE PO SCH (16:15)
[2020-06-10] MEDS ORDERED: LURASIDONE HCL 40 MG TABLET PO SCH (16:15)
[2020-06-10] MEDS ORDERED: lamoTRIgine 100 MG TABLET PO SCH (22:00)
[2020-06-10] MEDS ORDERED: ROSUVASTATIN CA 5 MG TABLET (FP) PO SCH (22:00)
[2020-06-10] MEDS ORDERED: SOLIFENACIN SUCCINATE 5 MG TAB PO SCH (22:00)
[2020-06-11] MEDS ORDERED: PATIENT'S OWN MEDICATION (NON-FORMULARY) (Lithium Carbonate [Lithobid] 300 MG Tablet.Er) PO SCH (10:00)
[2020-06-11] MEDS ORDERED: LOSARTAN POTASSIUM 50 MG TABLET PO SCH (10:00)
[2020-06-11] MEDS ORDERED: ENOXAPARIN NA (PORCINE) 40 MG/0.4 ML DISP.SYRIN SQ SCH (10:00)
== END 2020-06-10 16:15 | disposition home or self-care (01) ==
LOC: FER 10:36 → FM/S 14:11 → UNDOADMOB 14:39 → OBSVTOIN 15:04 → INTOOBSV 15:04
PROVIDERS: ADMIT Internal Medicine; ATTEND Nurse Practitioner Acute Care
PROC: 3E0337Z Introduction of Electrolytic and Water Balance Substance into Peripheral Vein, Percutaneous Approach (ICD-10-PCS; principal; 2020-06-10)
PROC: 3E033NZ Introduction of Analgesics, Hypnotics, Sedatives into Peripheral Vein, Percutaneous Approach (ICD-10-PCS; 2020-06-10)
PROC: 3E033GC Introduction of Other Therapeutic Substance into Peripheral Vein, Percutaneous Approach (ICD-10-PCS; 2020-06-10)
DX: R10.30 Lower abdominal pain, unspecified (principal); K62.89 Other specified diseases of anus and rectum; I10 Essential (primary) hypertension; E78.5 Hyperlipidemia, unspecified; K56.609 Unspecified intestinal obstruction, unspecified as to partial versus complete obstruction; F31.9 Bipolar disorder, unspecified; K21.9 Gastro-esophageal reflux disease without esophagitis; R63.0 Anorexia; R63.4 Abnormal weight loss; Z68.31 Body mass index [BMI] 31.0-31.9, adult; J45.909 Unspecified asthma, uncomplicated; G25.81 Restless legs syndrome; Z98.890 Other specified postprocedural states
CPT/HCPCS: 36415; 74177-TC; 80053; 81003; 81015; 82272; 83605; 83690; 84484; 85025; 85610; 85730; 87086; 93005; 96361; 96374; 96375; 99285-25; C9803; G0378; J0131; Q9967; U0003

== ENCOUNTER 2020-08-29 12:10 | Emergency (ER) | payer OTHER ==
[2020-08-29 12:38] VITALS: BP 157/72; PULSE 70; TEMP 98.3; BMI 29.2
== END 2020-08-29 13:22 | disposition home or self-care (01) ==
LOC: FER 12:10
DX: K59.00 Constipation, unspecified (principal)
CPT/HCPCS: 99281-25

== ENCOUNTER 2020-09-19 08:38 | Emergency (ER) | payer OTHER ==
[2020-09-19 08:44] VITALS: BP 137/84; PULSE 56; TEMP 98.7; BMI 29.2
[2020-09-19] MEDS ORDERED: ACETAMINOPHEN 500 MG TABLET (FP) PO ONE (08:52)
[2020-09-19] MEDS ORDERED: IBUPROFEN 600 MG TABLET (FP) PO ONE ×2 (08:52→08:57)
[2020-09-19] MEDS ORDERED: ACETAMINOPHEN 500 MG TABLET (FP) ONE (08:58)
== END 2020-09-19 10:38 | disposition home or self-care (01) ==
LOC: FER 08:38
DX: S20.219A Contusion of unspecified front wall of thorax, initial encounter (principal)
CPT/HCPCS: 71250-TC; 99284-25

== ENCOUNTER 2020-10-15 11:49 | Emergency (ER) | payer OTHER ==
[2020-10-15 12:10] VITALS: BP 133/72; PULSE 59; TEMP 98.1; BMI 31.4
[2020-10-15] MEDS ORDERED: ACETAMINOPHEN 325 MG TABLET (FP) PO ONE (12:17)
[2020-10-15] MEDS ORDERED: ACETAMINOPHEN 325 MG TABLET (FP) ONE (12:20)
== END 2020-10-15 13:51 | disposition home or self-care (01) ==
LOC: FER 11:49
DX: M79.601 Pain in right arm (principal)
CPT/HCPCS: 73030-TC-RT-FY; 99283-25

== ENCOUNTER 2020-10-23 06:40 | Inpatient (IN) | payer OTHER ==
[2020-10-23] MEDS ORDERED: FAMOTIDINE 20 MG/50 ML IVPB 20 MG/50 ML MG IVPB ONE ×2 (07:25→07:44)
[2020-10-23] MEDS ORDERED: morphine CARPU-JECT 4 MG/1 ML DISP.SYRIN IVPUSH ONE (07:25)
[2020-10-23] MEDS ORDERED: SODIUM CHLORIDE 1,000 ML IV STA (07:25)
[2020-10-23] MEDS ORDERED: ONDANSETRON 4 MG/2 ML VIAL IVPUSH ONE (07:26)
[2020-10-23] MEDS ORDERED: morphine SULFATE 4 MG/ML VIAL ONE (07:28)
[2020-10-23] MEDS ORDERED: ONDANSETRON 4 MG/2 ML VIAL ONE (07:28)
[2020-10-23 08:00] LABS: BASO % 0.4 % (0-2.0); HEMATOCRIT 41.7 % (32.4-45.2); HEMOGLOBIN 13.9 GM/dl (10.7-15.3); LYMPH % 16.8 % (8-40); MCH 28.8 pg (25.7-33.7); MCHC 33.2 g/dl (32.0-36.0); MEAN CELL VOLUME 86.7 fl (80-96); MEAN PLT VOLUME 8.5 fl (7.5-11.1); MONO % 12.9 % (3.8-10.2); NEUT % 64.9 % (42.8-82.8); PLATELET COUNT 204 K/MM3 (134-434); RBC 4.81 M/mm3 (3.60-5.2); RDW 13.4 % (11.6-15.6); WHITE BLOOD COUNT 6.5 K/mm3 (4.0-10.8)
[2020-10-23 08:02] LABS: ACTIVATED PTT 27.4 SECONDS (25.2-36.5)
[2020-10-23 08:05] LABS: ALBUMIN 3.5 g/dl (3.4-5.0); BILIRUBIN,TOTAL 0.8 mg/dl (0.2-1); CALCIUM 8.6 mg/dl (8.5-10); CREATININE 0.5 mg/dl (0.55-1.3); TOT PROT 6.4 g/dl (6.4-8.2)
[2020-10-23 08:07] LABS: INR 1.13 (0.82-1.09); PROTHROMBIN TIME (PATIENT) 12.6 SEC (10.2-13.0)
[2020-10-23] MEDS ORDERED: HYDROmorphone HCL CARPU-JECT 1 MG/1 ML DISP.SYRIN IVPB ONE (08:20)
[2020-10-23] MEDS ORDERED: SODIUM CHLORIDE 0.9% 500 ML INFUS.BAG IV ONE (09:46)
[2020-10-23 12:48] VITALS: BMI 30.6
[2020-10-23] MEDS: PANTOPRAZOLE 40 MG TABLET PO SCH (15:23)
[2020-10-23] MEDS ORDERED: LACTATED RINGERS SOLUTION 1,000 ML/1,000 ML INFUS.BAG IV SCH (17:30)
[2020-10-23] MEDS: ACETAMINOPHEN 1000 MG/100 ML VIAL (NON FORMULARY) IVPB PRN (17:43)
[2020-10-23] MEDS: QUEtiapine FUMARATE 25 MG TABLET PO SCH (22:07)
[2020-10-23] MEDS: DIVALPROEX SODIUM 500 MG TABLET E.C. PO SCH (22:07)
[2020-10-23] MEDS: LOSARTAN POTASSIUM 50 MG TABLET PO SCH (22:07)
[2020-10-23] MEDS: ARIPiprazole 2 MG TABLET PO SCH (22:07)
[2020-10-23] MEDS: clonazePAM 0.5 MG TABLET PO SCH (22:08)
[2020-10-23] MEDS: HEPARIN NA (PORCINE) 5,000 UNITS/ML 1ML VIAL SQ SCH (22:09)
[2020-10-24] MEDS: ACETAMINOPHEN 1000 MG/100 ML VIAL (NON FORMULARY) IVPB PRN ×2 (00:42→06:15)
[2020-10-24] MEDS: HEPARIN NA (PORCINE) 5,000 UNITS/ML 1ML VIAL SQ SCH ×3 (06:08→21:06)
[2020-10-24 07:30] LABS: BASO % 1.5 % (0-2.0); EOS % 6.3 % (0-4.5); HEMATOCRIT 37.7 % (32.4-45.2); HEMOGLOBIN 12.3 GM/dl (10.7-15.3); LYMPH % 27.1 % (8-40); MCH 28.5 pg (25.7-33.7); MCHC 32.5 g/dl (32.0-36.0); MEAN CELL VOLUME 87.6 fl (80-96); MEAN PLT VOLUME 8.2 fl (7.5-11.1); MONO % 12.1 % (3.8-10.2); PLATELET COUNT 173 K/MM3 (134-434); RBC 4.31 M/mm3 (3.60-5.2); RDW 13.1 % (11.6-15.6); WHITE BLOOD COUNT 4.8 K/mm3 (4.0-10.8)
[2020-10-24 08:01] LABS: ALBUMIN 2.9 g/dl (3.4-5.0); BILIRUBIN,TOTAL 0.7 mg/dl (0.2-1); CALCIUM 8.3 mg/dl (8.5-10); CREATININE 0.6 mg/dl (0.55-1.3); MAGNESIUM 1.9 mg/dL (1.8-2.4); TOT PROT 5.3 g/dl (6.4-8.2)
[2020-10-24] MEDS ORDERED: IBUPROFEN 800 MG/8 ML IJ IVPB ONE (08:45)
[2020-10-24] MEDS: PANTOPRAZOLE 40 MG TABLET PO SCH (10:24)
[2020-10-24] MEDS: LACTATED RINGERS SOLUTION 1,000 ML/1,000 ML INFUS.BAG IV SCH (11:39)
[2020-10-24] MEDS: QUEtiapine FUMARATE 25 MG TABLET PO SCH (21:05)
[2020-10-24] MEDS: DIVALPROEX SODIUM 500 MG TABLET E.C. PO SCH (21:06)
[2020-10-24] MEDS: clonazePAM 0.5 MG TABLET PO SCH (21:06)
[2020-10-24] MEDS: ARIPiprazole 2 MG TABLET PO SCH (21:06)
[2020-10-24] MEDS: LOSARTAN POTASSIUM 50 MG TABLET PO SCH (21:06)
[2020-10-25] MEDS: HEPARIN NA (PORCINE) 5,000 UNITS/ML 1ML VIAL SQ SCH ×3 (05:51→21:30)
[2020-10-25] MEDS ORDERED: CIPROFLOXACIN 500 MG TABLET (RESTRICTED TO ID) PO SCH (10:00)
[2020-10-25] MEDS: PANTOPRAZOLE 40 MG TABLET PO SCH (10:25)
[2020-10-25] MEDS: LACTATED RINGERS SOLUTION 1,000 ML/1,000 ML INFUS.BAG IV SCH (12:10)
[2020-10-25] MEDS: LACTOBACILLUS ACIDOPHILUS 1 TABLET PO SCH (14:38)
[2020-10-25] MEDS: CIPROFLOXACIN 250 MG TABLET (RESTRICTED TO ID) PO SCH ×2 (14:38→21:29)
[2020-10-25] MEDS: DIVALPROEX SODIUM 500 MG TABLET E.C. PO SCH (21:28)
[2020-10-25] MEDS: ARIPiprazole 2 MG TABLET PO SCH (21:29)
[2020-10-25] MEDS: QUEtiapine FUMARATE 25 MG TABLET PO SCH (21:29)
[2020-10-25] MEDS: clonazePAM 0.5 MG TABLET PO SCH (21:29)
[2020-10-25] MEDS: LOSARTAN POTASSIUM 50 MG TABLET PO SCH (21:29)
[2020-10-25] MEDS ORDERED: IBUPROFEN 800 MG/8 ML IJ IVPB ONE (23:10)
[2020-10-26] MEDS: HEPARIN NA (PORCINE) 5,000 UNITS/ML 1ML VIAL SQ SCH ×3 (06:03→21:11)
[2020-10-26] MEDS: CIPROFLOXACIN 250 MG TABLET (RESTRICTED TO ID) PO SCH ×2 (09:16→21:10)
[2020-10-26] MEDS: PANTOPRAZOLE 40 MG TABLET PO SCH (09:22)
[2020-10-26 09:23] LABS: BASO % 0.8 % (0-2.0); HEMATOCRIT 40.1 % (32.4-45.2); HEMOGLOBIN 13.1 GM/dl (10.7-15.3); LYMPH % 27.7 % (8-40); MCH 28.8 pg (25.7-33.7); MCHC 32.7 g/dl (32.0-36.0); MEAN CELL VOLUME 87.9 fl (80-96); MEAN PLT VOLUME 8.8 fl (7.5-11.1); MONO % 10.5 % (3.8-10.2); PLATELET COUNT 189 K/MM3 (134-434); RBC 4.56 M/mm3 (3.60-5.2); RDW 13.1 % (11.6-15.6); WHITE BLOOD COUNT 5.6 K/mm3 (4.0-10.8)
[2020-10-26] MEDS: LACTOBACILLUS ACIDOPHILUS 1 TABLET PO SCH (09:23)
[2020-10-26 09:28] LABS: CALCIUM 8.5 mg/dl (8.5-10); CREATININE 0.8 mg/dl (0.55-1.3); MAGNESIUM 1.8 mg/dL (1.8-2.4)
[2020-10-26] MEDS ORDERED: LACTATED RINGERS SOLUTION 1,000 ML/1,000 ML INFUS.BAG IV SCH (10:15)
[2020-10-26] MEDS: clonazePAM 0.5 MG TABLET PO SCH (21:10)
[2020-10-26] MEDS: DIVALPROEX SODIUM 500 MG TABLET E.C. PO SCH (21:10)
[2020-10-26] MEDS: LOSARTAN POTASSIUM 50 MG TABLET PO SCH (21:11)
[2020-10-26] MEDS: QUEtiapine FUMARATE 25 MG TABLET PO SCH (21:11)
[2020-10-26] MEDS: ARIPiprazole 2 MG TABLET PO SCH (21:11)
[2020-10-27] MEDS ORDERED: IBUPROFEN 800 MG/8 ML IJ IVPB ONE ×2 (03:37→11:30)
[2020-10-27] MEDS: HEPARIN NA (PORCINE) 5,000 UNITS/ML 1ML VIAL SQ SCH (06:14)
[2020-10-27 08:17] LABS: BASO % 0.5 % (0-2.0); EOS % 5.1 % (0-4.5); HEMATOCRIT 42.5 % (32.4-45.2); LYMPH % 28.3 % (8-40); MCH 29.2 pg (25.7-33.7); MEAN CELL VOLUME 88.5 fl (80-96); MEAN PLT VOLUME 8.7 fl (7.5-11.1); MONO % 10.2 % (3.8-10.2); NEUT % 55.9 % (42.8-82.8); PLATELET COUNT 224 K/MM3 (134-434); RBC 4.81 M/mm3 (3.60-5.2); RDW 12.8 % (11.6-15.6); WHITE BLOOD COUNT 5.9 K/mm3 (4.0-10.8)
[2020-10-27 08:26] LABS: ALBUMIN 3.5 g/dl (3.4-5.0); BILIRUBIN,TOTAL 0.5 mg/dl (0.2-1); CALCIUM 8.8 mg/dl (8.5-10); CREATININE 0.7 mg/dl (0.55-1.3); TOT PROT 6.4 g/dl (6.4-8.2)
[2020-10-27] MEDS ORDERED: LOPERAMIDE HCL 2 MG CAPSULE PO PRN (09:06)
[2020-10-27] MEDS ORDERED: DICYCLOMINE HCL 10 MG CAPSULE PO PRN (09:08)
[2020-10-27 09:11] LABS: ERYTHROCYTE SEDIMENTATION RATE 4 mm/hr (0-30)
[2020-10-27] MEDS: LACTOBACILLUS ACIDOPHILUS 1 TABLET PO SCH (09:20)
[2020-10-27] MEDS: PANTOPRAZOLE 40 MG TABLET PO SCH (09:20)
[2020-10-27] MEDS ORDERED: LOPERAMIDE HCL 1 MG/7.5 ML LIQUID PO PRN (11:10)
[2020-10-27] MEDS ORDERED: REFRIGERATED ANITBIOTICS ONE (13:16)
[2020-10-27 13:38] VITALS: BP 133/62; PULSE 52; TEMP 98.4
== END 2020-10-27 13:44 | disposition home or self-care (01) | DRG 394 ==
LOC: FER 06:40 → INTOOBSV 11:42 → FM/S 11:42 → OBSVTOIN 10-26 11:58
PROVIDERS: ADMIT Internal Medicine; ATTEND Nurse Practitioner Acute Care
DX: K65.4 Sclerosing mesenteritis (principal); N39.0 Urinary tract infection, site not specified; I10 Essential (primary) hypertension; E78.5 Hyperlipidemia, unspecified; K21.9 Gastro-esophageal reflux disease without esophagitis; F31.9 Bipolar disorder, unspecified; M19.90 Unspecified osteoarthritis, unspecified site; E66.9 Obesity, unspecified; Z68.30 Body mass index [BMI] 30.0-30.9, adult; G25.81 Restless legs syndrome; B96.20 Unspecified Escherichia coli [E. coli] as the cause of diseases classified elsewhere; M17.12 Unilateral primary osteoarthritis, left knee; M19.041 Primary osteoarthritis, right hand
CPT/HCPCS: 36415; 74177-TC; 80048; 80053; 81003; 83690; 83735; 85025; 85610; 85651; 85730; 86140; 86850; 86900; 86901; 87045; 87046; 87086; 87186; 87205; 87324; 87449; 93005; 99285-25; C9803; G0378; J0131; J1644; Q9967; U0003; U0005

== ENCOUNTER 2021-01-14 17:47 | Observation (INO) | payer BC, OTHER ==
[2021-01-14] MEDS ORDERED: SODIUM CHLORIDE 0.9% 1000 ML INFUS.BAG IV ONE (18:21)
[2021-01-14 18:54] LABS: BASO % 1.3 % (0-2.0); EOS % 1.4 % (0-4.5); HEMATOCRIT 46.2 % (32.4-45.2); HEMOGLOBIN 15.5 GM/dl (10.7-15.3); LYMPH % 22.5 % (8-40); MCH 29.7 pg (25.7-33.7); MCHC 33.5 g/dl (32.0-36.0); MEAN CELL VOLUME 88.7 fl (80-96); MEAN PLT VOLUME 8.3 fl (7.5-11.1); MONO % 9.2 % (3.8-10.2); NEUT % 65.6 % (42.8-82.8); PLATELET COUNT 217 10^3/uL (134-434); RBC 5.21 M/mm3 (3.60-5.2); RDW 13.2 % (11.6-15.6); WHITE BLOOD COUNT 9.3 K/mm3 (4.0-10.8)
[2021-01-14 19:07] LABS: BILIRUBIN,TOTAL 0.3 mg/dl (0.2-1); CREATININE 0.5 mg/dl (0.55-1.3)
[2021-01-14 19:12] LABS: EPITHELIAL CELLS RARE /hpf
[2021-01-14] MEDS ORDERED: clonazePAM 0.5 MG TABLET PO ONE (21:17)
[2021-01-14] MEDS ORDERED: ARIPiprazole 5 MG TABLET PO ONE (21:17)
[2021-01-14] MEDS ORDERED: DIVALPROEX SODIUM 500 MG TABLET E.C. PO ONE (21:18)
[2021-01-14] MEDS ORDERED: QUEtiapine FUMARATE 50 MG TABLET PO ONE (21:18)
[2021-01-14] MEDS ORDERED: clonazePAM 0.5 MG TABLET ONE (21:31)
[2021-01-14] MEDS ORDERED: QUEtiapine FUMARATE 25 MG TABLET ONE (21:31)
[2021-01-15 01:05] VITALS: BMI 34.0
[2021-01-15 06:35] VITALS: TEMP 97.7
[2021-01-15 07:53] LABS: BASO % 1.5 % (0-2.0); EOS % 3.3 % (0-4.5); HEMATOCRIT 41.5 % (32.4-45.2); HEMOGLOBIN 13.8 GM/dl (10.7-15.3); LYMPH % 29.8 % (8-40); MCHC 33.2 g/dl (32.0-36.0); MEAN CELL VOLUME 87.3 fl (80-96); MEAN PLT VOLUME 8.1 fl (7.5-11.1); MONO % 12.2 % (3.8-10.2); NEUT % 53.2 % (42.8-82.8); PLATELET COUNT 193 10^3/uL (134-434); RBC 4.76 M/mm3 (3.60-5.2); RDW 12.7 % (11.6-15.6)
[2021-01-15 08:13] LABS: ALBUMIN 3.4 g/dl (3.4-5.0); ALK PHOS 74 U/L (45-117); ANION GAP 9 MMOL/L (8-16); BILIRUBIN,TOTAL 0.4 mg/dl (0.2-1); CALCIUM 8.7 mg/dl (8.5-10); CHLORIDE 106 mmol/L (98-107); CHOLESTEROL 239 mg/dl (50-200); CO2 25 mmol/L (21-32); CREATININE 0.5 mg/dl (0.55-1.3); GLUCOSE,RANDOM 104 mg/dl (74-106); HDL CHOLESTEROL 30 mg/dl (40-60); LDL CHOLESTEROL (ONLY DFH) 163 mg/dl (5-100); MAGNESIUM 1.9 mg/dL (1.8-2.4); SGOT/AST 15 U/L (15-37); SGPT/ALT 16 U/L (13-61); SODIUM 140 mmol/L (136-145); TRIGLYCERIDES 231 mg/dl (0-150)
[2021-01-15] MEDS ORDERED: PATIENT'S OWN MEDICATION (NON-FORMULARY) (Mirabegron [Myrbetriq] 50 MG Tab.Er.24h) PO SCH (10:00)
[2021-01-15] MEDS ORDERED: SOLIFENACIN SUCCINATE 5 MG TAB PO SCH (10:00)
[2021-01-15] MEDS ORDERED: ENOXAPARIN NA (PORCINE) 40 MG/0.4 ML DISP.SYRIN SQ SCH (11:15)
[2021-01-15 12:03] VITALS: BP 141/74; PULSE 61
[2021-01-15] MEDS ORDERED: ARIPiprazole 2 MG TABLET PO SCH (22:00)
[2021-01-15] MEDS ORDERED: clonazePAM 0.5 MG TABLET PO SCH (22:00)
[2021-01-15] MEDS ORDERED: DIVALPROEX SODIUM 500 MG TABLET E.C. PO SCH (22:00)
[2021-01-15] MEDS ORDERED: QUEtiapine FUMARATE 25 MG TABLET PO SCH (22:00)
== END 2021-01-15 18:30 | disposition home or self-care (01) | DRG 312 ==
LOC: FER 17:47 → FM/S 20:51 → UNDOADMIN 01-15 00:23 → UNDODISIN 01-15 18:30
PROVIDERS: ADMIT Internal Medicine; ATTEND Internal Medicine
DX: R55 Syncope and collapse (principal); R53.1 Weakness; I10 Essential (primary) hypertension; E78.5 Hyperlipidemia, unspecified; K21.9 Gastro-esophageal reflux disease without esophagitis; E66.9 Obesity, unspecified; Z68.34 Body mass index [BMI] 34.0-34.9, adult
CPT/HCPCS: 36415; 70450-TC; 71045-TC-FY; 80053; 80061; 80164; 81003; 81015; 82550; 83036; 83735; 84443; 84484; 85025; 87086; 93005; 93306-TC; 93880-TC; 97116-GP; 97162-GP; 99285-25; C9803; G0378; U0003; U0005

== ENCOUNTER 2021-02-25 14:28 | Emergency (ER) | payer BC, OTHER ==
[2021-02-25 14:40] VITALS: BP 178/94; PULSE 77; TEMP 98.6; BMI 32.5
[2021-02-25] MEDS ORDERED: SODIUM CHLORIDE 0.9% 500 ML INFUS.BAG IV ONE (15:24)
[2021-02-25 16:05] LABS: BASO % 1.5 % (0-2.0); EOS % 1.2 % (0-4.5); HEMATOCRIT 44.6 % (32.4-45.2); HEMOGLOBIN 15.3 GM/dl (10.7-15.3); LYMPH % 14.1 % (8-40); MCH 30.1 pg (25.7-33.7); MCHC 34.2 g/dl (32.0-36.0); MEAN CELL VOLUME 87.9 fl (80-96); MEAN PLT VOLUME 8.6 fl (7.5-11.1); MONO % 8.4 % (3.8-10.2); NEUT % 74.8 % (42.8-82.8); PLATELET COUNT 245 10^3/uL (134-434); RBC 5.07 M/mm3 (3.60-5.2); RDW 12.6 % (11.6-15.6); WHITE BLOOD COUNT 8.6 K/mm3 (4.0-10.8)
[2021-02-25 16:10] LABS: ALBUMIN 3.9 g/dl (3.4-5.0); BILIRUBIN,TOTAL 0.6 mg/dl (0.2-1); CREATININE 0.7 mg/dl (0.55-1.3); TOT PROT 6.6 g/dl (6.4-8.2)
== END 2021-02-25 17:23 | disposition home or self-care (01) ==
LOC: FER 14:28
DX: R53.1 Weakness (principal)
CPT/HCPCS: 36415; 80053; 81003; 81015; 82550; 84484; 85025; 87086; 93005; 99284-25

== ENCOUNTER 2021-02-26 18:15 | Emergency (ER) | payer BC, OTHER ==
[2021-02-26 19:02] VITALS: BP 148/86; PULSE 73; TEMP 98.9; BMI 32.1
[2021-02-26] MEDS ORDERED: ACETAMINOPHEN 500 MG TABLET (FP) PO ONE (20:32)
[2021-02-26] MEDS ORDERED: METHOCARBAMOL 750 MG TABLET PO ONE (20:33)
[2021-02-26] MEDS ORDERED: LIDOCAINE 5% TOPICAL PATCH TP ONE (20:33)
[2021-02-26] MEDS ORDERED: METHOCARBAMOL 500 MG TABLET ONE (20:37)
[2021-02-26] MEDS ORDERED: LIDOCAINE 5% TOPICAL PATCH ONE (20:38)
[2021-02-26] MEDS ORDERED: ACETAMINOPHEN 500 MG TABLET (FP) ONE (20:38)
[2021-02-26] MEDS ORDERED: LIDOCAINE PATCH REMOVAL MC SCH (22:00)
== END 2021-02-26 22:43 | disposition home or self-care (01) ==
LOC: FER 18:15
DX: M54.50 Low back pain, unspecified (principal); R53.1 Weakness
CPT/HCPCS: 72131-TC; 99284-25

== ENCOUNTER 2021-03-13 10:13 | Emergency (ER) | payer BC, OTHER ==
[2021-03-13 10:30] VITALS: BP 183/95; PULSE 74; TEMP 97.9; BMI 32.1
== END 2021-03-13 10:54 | disposition home or self-care (01) ==
LOC: FER 10:13
DX: L03.031 Cellulitis of right toe (principal)
CPT/HCPCS: 99283-25

== ENCOUNTER 2021-09-02 10:02 | Emergency (ER) | payer BC, OTHER ==
[2021-09-02 10:23] VITALS: BP 129/73; PULSE 79; TEMP 98.2; BMI 31.5
== END 2021-09-02 10:34 | disposition home or self-care (01) ==
LOC: FER 10:02
DX: M79.5 Residual foreign body in soft tissue (principal)
CPT/HCPCS: 99282-25

== ENCOUNTER 2021-10-22 08:35 | Observation (INO) | payer OTHER, BC ==
[2021-10-22] MEDS ORDERED: ACETAMINOPHEN 1000 MG/100 ML BAG IVPB ONE (08:45)
[2021-10-22] MEDS ORDERED: SODIUM CHLORIDE 0.9% 1000 ML INFUS.BAG IV ONE (08:45)
[2021-10-22] MEDS ORDERED: ONDANSETRON 4 MG/2 ML VIAL IVPUSH ONE (08:45)
[2021-10-22] MEDS ORDERED: ONDANSETRON 4 MG/2 ML VIAL ONE (08:49)
[2021-10-22] MEDS ORDERED: ACETAMINOPHEN INJECTION 100 ML IVPB ONE (08:49)
[2021-10-22 09:19] LABS: HEMATOCRIT 42.3 % (32.4-45.2); HEMOGLOBIN 15.1 G/dL (10.7-15.3); MCH 30.6 pg (25.7-33.7); MCHC 35.6 g/dl (32.0-36.0); MEAN PLT VOLUME 8.5 fl (7.5-11.1); PLATELET COUNT 188.7 10^3/uL (134-434); RBC 4.92 10^6/uL (3.60-5.2); RDW 14.3 % (11.6-15.6); WHITE BLOOD COUNT 6.9 10^3/uL (4.0-10.8)
[2021-10-22] MEDS ORDERED: FAMOTIDINE 20 MG/50 ML IVPB 20 MG/50 ML MG IVPB ONE ×2 (09:54→09:59)
[2021-10-22 10:14] LABS: CALCIUM 9.1 mg/dL (8.5-10.1)
[2021-10-22 10:15] LABS: ALBUMIN 3.7 g/dl (3.4-5.0); BLOOD UREA NITROGEN 9.4 mg/dL (7-18)
[2021-10-22 10:18] LABS: CREATININE 0.6 mg/dL (0.55-1.3)
[2021-10-22 10:19] LABS: BILIRUBIN,TOTAL 0.5 mg/dL (0.2-1)
[2021-10-22 10:20] LABS: TOT PROT 7.1 g/dl (6.4-8.2)
[2021-10-22] MEDS ORDERED: METOCLOPRAMIDE HCL INJECTION 10 MG/2 ML VIAL IVPB ONE (12:00)
[2021-10-22] MEDS ORDERED: METOCLOPRAMIDE HCL INJECTION 10 MG/2 ML VIAL ONE (12:05)
[2021-10-22 13:54] VITALS: BMI 31.1
[2021-10-22] MEDS ORDERED: ACETAMINOPHEN 1000 MG/100 ML BAG IVPB PRN (17:24)
[2021-10-22] MEDS ORDERED: DEXTROSE 5%-0.45% SALINE 1,000 ML IV SCH (17:30)
[2021-10-22] MEDS: HEPARIN NA (PORCINE) 5,000 UNITS/ML 1ML VIAL SQ SCH (21:14)
[2021-10-22] MEDS ORDERED: ROSUVASTATIN CA 5 MG TABLET PO SCH (22:00)
[2021-10-22] MEDS ORDERED: DIVALPROEX SODIUM 500 MG TABLET E.C. PO SCH (22:00)
[2021-10-22] MEDS ORDERED: MELATONIN 5 MG TABLETS PO SCH (22:00)
[2021-10-23] MEDS: HEPARIN NA (PORCINE) 5,000 UNITS/ML 1ML VIAL SQ SCH ×2 (05:35→14:06)
[2021-10-23] MEDS: ONDANSETRON 4 MG/2 ML VIAL IVPUSH PRN ×2 (05:35→10:44)
[2021-10-23 08:16] LABS: ALBUMIN 3.4 g/dl (3.4-5.0); BILIRUBIN,TOTAL 0.8 mg/dl (0.2-1); CALCIUM 8.5 mg/dl (8.5-10); CREATININE 0.7 mg/dl (0.55-1.3); MAGNESIUM 1.9 mg/dL (1.8-2.4); TOT PROT 5.6 g/dl (6.4-8.2)
[2021-10-23 08:21] LABS: HEMATOCRIT 39.1 % (32.4-45.2); HEMOGLOBIN 13.6 G/dL (10.7-15.3); MCH 29.9 pg (25.7-33.7); MCHC 34.7 g/dl (32.0-36.0); MEAN CELL VOLUME 86.2 fl (80-96); MEAN PLT VOLUME 8.8 fl (7.5-11.1); PLATELET COUNT 181.2 10^3/uL (134-434); RBC 4.54 10^6/uL (3.60-5.2); RDW 14.6 % (11.6-15.6)
[2021-10-23] MEDS ORDERED: morphine SULFATE 4 MG/ML VIAL IVPUSH ONE (09:02)
[2021-10-23] MEDS ORDERED: SOLIFENACIN SUCCINATE 5 MG TAB PO SCH (10:00)
[2021-10-23] MEDS ORDERED: LOSARTAN POTASSIUM 50 MG TABLET PO SCH (10:00)
[2021-10-23 15:24] VITALS: BP 117/59; PULSE 57; TEMP 98.3
== END 2021-10-23 15:40 | disposition home or self-care (01) ==
LOC: FER 08:35 → UNDOADMIN 12:29 → FM/S 12:29 → INTOOBSV 13:18
PROVIDERS: ADMIT Internal Medicine; ATTEND Nurse Practitioner Acute Care
PROC: 3E033GC Introduction of Other Therapeutic Substance into Peripheral Vein, Percutaneous Approach (ICD-10-PCS; principal; 2021-10-22)
PROC: 3E033NZ Introduction of Analgesics, Hypnotics, Sedatives into Peripheral Vein, Percutaneous Approach (ICD-10-PCS; 2021-10-22)
PROC: 3E0337Z Introduction of Electrolytic and Water Balance Substance into Peripheral Vein, Percutaneous Approach (ICD-10-PCS; 2021-10-22)
DX: K52.9 Noninfective gastroenteritis and colitis, unspecified (principal); F31.9 Bipolar disorder, unspecified; K21.9 Gastro-esophageal reflux disease without esophagitis; M19.90 Unspecified osteoarthritis, unspecified site; I10 Essential (primary) hypertension; E78.5 Hyperlipidemia, unspecified; J45.909 Unspecified asthma, uncomplicated; E66.9 Obesity, unspecified; Z68.30 Body mass index [BMI] 30.0-30.9, adult; G25.81 Restless legs syndrome; Z88.8 Allergy status to other drugs, medicaments and biological substances; Z88.6 Allergy status to analgesic agent
CPT/HCPCS: 0241U-QW; 36415; 71045-TC-FY; 74177-TC; 80053; 81003; 83605; 83690; 83735; 85025; 85027; 93005; 96361; 96365; 96367; 96375; 96376; 99285-25; G0378; J1644; Q9967

== ENCOUNTER 2021-10-24 09:00 | Observation (INO) | payer OTHER, BC ==
[2021-10-24] MEDS ORDERED: ONDANSETRON 4 MG/2 ML VIAL IVPUSH ONE (09:53)
[2021-10-24] MEDS ORDERED: SODIUM CHLORIDE 1,000 ML IV STA ×2 (09:53→11:16)
[2021-10-24] MEDS ORDERED: ACETAMINOPHEN 1000 MG/100 ML BAG IVPB ONE (09:53)
[2021-10-24] MEDS ORDERED: ACETAMINOPHEN INJECTION 100 ML IVPB ONE (10:00)
[2021-10-24] MEDS ORDERED: ONDANSETRON 4 MG/2 ML VIAL ONE (10:00)
[2021-10-24 10:18] LABS: HEMATOCRIT 42.1 % (32.4-45.2); HEMOGLOBIN 14.7 G/dL (10.7-15.3); MCH 30.2 pg (25.7-33.7); MCHC 34.9 g/dl (32.0-36.0); MEAN CELL VOLUME 86.4 fl (80-96); MEAN PLT VOLUME 8.7 fl (7.5-11.1); PLATELET COUNT 214.4 10^3/uL (134-434); RBC 4.87 10^6/uL (3.60-5.2); RDW 14.7 % (11.6-15.6); WHITE BLOOD COUNT 7.1 10^3/uL (4.0-10.8)
[2021-10-24 10:25] LABS: ALBUMIN 3.9 g/dl (3.4-5.0); BILIRUBIN,TOTAL 0.8 mg/dl (0.2-1); CALCIUM 8.9 mg/dl (8.5-10); CREATININE 0.7 mg/dl (0.55-1.3); TOT PROT 6.7 g/dl (6.4-8.2)
[2021-10-24] MEDS ORDERED: DEXTROSE 5%-0.45% SALINE 1,000 ML IV SCH (12:45)
[2021-10-24 13:02] VITALS: BMI 13.8
[2021-10-24] MEDS ORDERED: ENOXAPARIN NA (PORCINE) 40 MG/0.4 ML DISP.SYRIN SQ SCH (15:15)
[2021-10-24] MEDS ORDERED: FAMOTIDINE 20 MG/50 ML IVPB 20 MG/50 ML MG IVPB ONE (15:15)
[2021-10-24 19:10] LABS: EPITHELIAL CELLS RARE /hpf
[2021-10-24] MEDS: OXYBUTYNIN CHLORIDE 5 MG TABLET PO SCH (21:33)
[2021-10-24] MEDS ORDERED: PATIENT'S OWN MEDICATION (NON-FORMULARY) (Melatonin [Melatonin] 10 MG Capsule) PO SCH (22:00)
[2021-10-24] MEDS ORDERED: DIVALPROEX SODIUM 500 MG TABLET E.C. PO SCH (22:00)
[2021-10-24] MEDS ORDERED: ROSUVASTATIN CA 5 MG TABLET PO SCH (22:00)
[2021-10-24] MEDS: MELATONIN 1 MG TABLET PO PRN (22:17)
[2021-10-24] MEDS ORDERED: MELATONIN 5 MG TABLETS PO ONE (22:48)
[2021-10-25] MEDS: ACETAMINOPHEN 325 MG TABLET (FP) PO PRN (05:51)
[2021-10-25] MEDS: ONDANSETRON 4 MG/2 ML VIAL IVPUSH PRN ×3 (05:51→22:18)
[2021-10-25] MEDS: OXYBUTYNIN CHLORIDE 5 MG TABLET PO SCH ×3 (07:03→21:19)
[2021-10-25] MEDS ORDERED: traMADol HCL 50 MG TABLET PO ONE (08:23)
[2021-10-25] MEDS ORDERED: SIMETHICONE 80 MG TAB.CHEW (FP) PO PRN (09:15)
[2021-10-25 09:26] LABS: CALCIUM 8.9 mg/dl (8.5-10); CREATININE 0.7 mg/dl (0.55-1.3)
[2021-10-25 09:36] LABS: HEMATOCRIT 39.8 % (32.4-45.2); HEMOGLOBIN 13.9 G/dL (10.7-15.3); MCH 30.4 pg (25.7-33.7); MEAN CELL VOLUME 86.8 fl (80-96); MEAN PLT VOLUME 8.8 fl (7.5-11.1); PLATELET COUNT 188.1 10^3/uL (134-434); RBC 4.58 10^6/uL (3.60-5.2); RDW 14.7 % (11.6-15.6); WHITE BLOOD COUNT 5.3 10^3/uL (4.0-10.8)
[2021-10-25] MEDS: LOSARTAN POTASSIUM 50 MG TABLET PO SCH (09:56)
[2021-10-25] MEDS: ENOXAPARIN NA (PORCINE) 40 MG/0.4 ML DISP.SYRIN SQ SCH (09:57)
[2021-10-25] MEDS ORDERED: FAMOTIDINE 20 MG TABLET PO SCH (10:00)
[2021-10-25] MEDS: METOCLOPRAMIDE HCL 10 MG TABLET (FP) PO SCH ×3 (10:02→21:17)
[2021-10-25] MEDS: DEXTROSE 5%-0.45% SALINE 1,000 ML IV SCH (10:15)
[2021-10-25] MEDS: PANTOPRAZOLE 40 MG TABLET PO SCH (11:18)
[2021-10-25] MEDS: DIVALPROEX NA *ER* EXTEND REL 500 MG TABLET.SA (FP) PO SCH (21:17)
[2021-10-25] MEDS: MELATONIN 1 MG TABLET PO PRN (21:18)
[2021-10-26] MEDS: ACETAMINOPHEN 325 MG TABLET (FP) PO PRN ×2 (05:39→19:44)
[2021-10-26] MEDS: OXYBUTYNIN CHLORIDE 5 MG TABLET PO SCH ×3 (05:43→21:23)
[2021-10-26] MEDS: ONDANSETRON 4 MG/2 ML VIAL IVPUSH PRN ×2 (05:43→22:53)
[2021-10-26] MEDS: METOCLOPRAMIDE HCL 10 MG TABLET (FP) PO SCH ×4 (06:15→21:23)
[2021-10-26] MEDS: LOSARTAN POTASSIUM 50 MG TABLET PO SCH (09:29)
[2021-10-26] MEDS: PANTOPRAZOLE 40 MG TABLET PO SCH (09:30)
[2021-10-26] MEDS: ENOXAPARIN NA (PORCINE) 40 MG/0.4 ML DISP.SYRIN SQ SCH (09:30)
[2021-10-26] MEDS: DEXTROSE 5%-0.45% SALINE 1,000 ML IV SCH (09:30)
[2021-10-26] MEDS: DIVALPROEX NA *ER* EXTEND REL 500 MG TABLET.SA (FP) PO SCH (21:23)
[2021-10-26] MEDS: MELATONIN 1 MG TABLET PO PRN (21:25)
[2021-10-26] MEDS ORDERED: ROSUVASTATIN CA 5 MG TABLET PO SCH (22:00)
[2021-10-26] MEDS ORDERED: ONDANSETRON 4 MG/2 ML VIAL IVPUSH ONE (23:13)
[2021-10-26] MEDS ORDERED: morphine SULFATE 4 MG/ML VIAL ONE (23:39)
[2021-10-27] MEDS: ONDANSETRON 4 MG/2 ML VIAL IVPUSH PRN (05:50)
[2021-10-27 05:59] VITALS: PULSE 55
[2021-10-27] MEDS ORDERED: morphine SULFATE 4 MG/ML VIAL ONE (06:14)
[2021-10-27] MEDS: OXYBUTYNIN CHLORIDE 5 MG TABLET PO SCH (06:18)
[2021-10-27 08:44] VITALS: BP 146/70; TEMP 98.2
[2021-10-27] MEDS ORDERED: DICYCLOMINE HCL 10 MG CAPSULE PO PRN (09:05)
[2021-10-27] MEDS: PANTOPRAZOLE 40 MG TABLET PO SCH (09:26)
[2021-10-27] MEDS: LOSARTAN POTASSIUM 50 MG TABLET PO SCH (09:27)
[2021-10-27] MEDS: METOCLOPRAMIDE HCL 10 MG TABLET (FP) PO SCH (09:28)
[2021-10-27] MEDS: ENOXAPARIN NA (PORCINE) 40 MG/0.4 ML DISP.SYRIN SQ SCH (09:28)
[2021-10-27] MEDS: DEXTROSE 5%-0.45% SALINE 1,000 ML IV SCH (09:29)
== END 2021-10-27 10:30 | disposition home or self-care (01) ==
LOC: FER 09:00 → INTOOBSV 11:17 → UNDOADMIN 11:17 → FM/S 11:17
PROVIDERS: ADMIT Internal Medicine; ATTEND Nurse Practitioner Acute Care
PROC: 3E0337Z Introduction of Electrolytic and Water Balance Substance into Peripheral Vein, Percutaneous Approach (ICD-10-PCS; principal; 2021-10-24)
PROC: 3E033NZ Introduction of Analgesics, Hypnotics, Sedatives into Peripheral Vein, Percutaneous Approach (ICD-10-PCS; 2021-10-24)
PROC: 3E03329 Introduction of Other Anti-infective into Peripheral Vein, Percutaneous Approach (ICD-10-PCS; 2021-10-24)
PROC: 3E033NZ Introduction of Analgesics, Hypnotics, Sedatives into Peripheral Vein, Percutaneous Approach (ICD-10-PCS; 2021-10-24)
DX: K52.89 Other specified noninfective gastroenteritis and colitis (principal); I10 Essential (primary) hypertension; E78.5 Hyperlipidemia, unspecified; F31.9 Bipolar disorder, unspecified; J45.909 Unspecified asthma, uncomplicated; K21.9 Gastro-esophageal reflux disease without esophagitis; M19.90 Unspecified osteoarthritis, unspecified site; N32.89 Other specified disorders of bladder; E66.9 Obesity, unspecified; G25.81 Restless legs syndrome; Z90.49 Acquired absence of other specified parts of digestive tract; Z87.738 Personal history of other specified (corrected) congenital malformations of digestive system; Z88.8 Allergy status to other drugs, medicaments and biological substances; Z88.6 Allergy status to analgesic agent
CPT/HCPCS: 36415; 70450-TC; 80048; 80053; 80164; 81003; 81015; 83690; 85025; 87177; 87209; 93005; 96361; 96365; 96367; 96368; 96375; 96376; 97116-GP; 97162-GP; 99285-25; C9803-CS; G0378; U0003; U0005

== ENCOUNTER 2022-01-29 09:10 | Inpatient (IN) | payer BC, OTHER ==
[2022-01-29] MEDS ORDERED: ACETAMINOPHEN 1000 MG/100 ML BAG IVPB ONE (10:05)
[2022-01-29] MEDS ORDERED: ACETAMINOPHEN INJECTION 100 ML IVPB ONE (10:11)
[2022-01-29] MEDS ORDERED: ASPIRIN 81 MG CHEWABLE TABLETS PO ONE (10:26)
[2022-01-29] MEDS ORDERED: ASPIRIN 81 MG CHEWABLE TABLETS ONE (10:40)
[2022-01-29 10:44] LABS: HEMATOCRIT 46.6 % (32.4-45.2); HEMOGLOBIN 16.4 G/dL (10.7-15.3); MCH 30.1 pg (25.7-33.7); MCHC 35.1 g/dl (32.0-36.0); MEAN CELL VOLUME 85.8 fl (80-96); MEAN PLT VOLUME 8.4 fl (7.5-11.1); PLATELET COUNT 240.4 10^3/uL (134-434); RBC 5.43 10^6/uL (3.60-5.2); RDW 14.1 % (11.6-15.6)
[2022-01-29 10:51] LABS: INR 1.01 (0.83-1.09); PROTHROMBIN TIME (PATIENT) 11.6 SEC (9.7-13.0)
[2022-01-29 10:54] LABS: ACTIVATED PTT 31.8 SECONDS (25.2-36.5)
[2022-01-29 11:00] LABS: ALBUMIN 4.2 g/dl (3.4-5.0); BILIRUBIN,TOTAL 0.8 mg/dl (0.2-1); CALCIUM 9.4 mg/dl (8.5-10); CREATININE 0.6 mg/dl (0.55-1.3); TOT PROT 7.3 g/dl (6.4-8.2)
[2022-01-29] MEDS ORDERED: ATORVASTATIN CA 80 MG TABLET (FP) PO ONE (12:15)
[2022-01-29] MEDS ORDERED: ATORVASTATIN CA 80 MG TABLET (FP) ONE (12:17)
[2022-01-29] MEDS ORDERED: SODIUM CHLORIDE 500 ML IV STA (12:40)
[2022-01-29] MEDS ORDERED: LABETALOL HCL 5 MG/1 ML (100MG/20 ML VIAL) IVPUSH ONE (12:59)
[2022-01-29] MEDS ORDERED: REGADENOSON 0.4 MG/5 ML PRE-FILLED SYRINGE IVPUSH ONE ×2 (15:47)
[2022-01-29 17:38] VITALS: BMI 31.1
[2022-01-29] MEDS ORDERED: PRAMIPEXOLE DIHYDROCHLORIDE 0.5 MG TABLET PO SCH (22:00)
[2022-01-29] MEDS ORDERED: DIVALPROEX SODIUM 500 MG TABLET E.C. PO SCH (22:00)
[2022-01-29] MEDS ORDERED: MELATONIN 5 MG TABLETS PO SCH (22:00)
[2022-01-29] MEDS ORDERED: MELATONIN 5 MG TABLETS PO PRN (22:05)
[2022-01-29] MEDS ORDERED: MELATONIN 1 MG TABLET PO PRN (22:20)
[2022-01-30 05:24] VITALS: BP 145/86; PULSE 63; RESP 18; TEMP 97.5
[2022-01-30] MEDS ORDERED: ASPIRIN 81 MG CHEWABLE TABLETS PO SCH (10:00)
[2022-01-30] MEDS ORDERED: LOSARTAN POTASSIUM 50 MG TABLET PO SCH (10:00)
[2022-01-30] MEDS ORDERED: ATORVASTATIN CA 80 MG TABLET (FP) PO SCH (22:00)
== END 2022-01-30 12:11 | disposition home or self-care (01) | DRG 313 ==
LOC: FER 09:10 → J4S 16:59
PROVIDERS: ATTEND Internal Medicine
DX: R07.89 Other chest pain (principal); I47.1 Supraventricular tachycardia; J45.909 Unspecified asthma, uncomplicated; I10 Essential (primary) hypertension; E78.5 Hyperlipidemia, unspecified; F31.9 Bipolar disorder, unspecified; K21.9 Gastro-esophageal reflux disease without esophagitis; G25.81 Restless legs syndrome; N32.81 Overactive bladder; E66.9 Obesity, unspecified; G47.00 Insomnia, unspecified; Z91.51 Personal history of suicidal behavior
CPT/HCPCS: 0241U-QW; 36415; 71046-TC-FY; 78452-TC; 80053; 80061; 81003; 83036; 83880; 84443; 84484; 85027; 85379; 85610; 85730; 87086; 93005; 93010; 93017; 93306-TC; 93971-TC; 99285-25; A9502; J2785

== ENCOUNTER 2022-03-11 23:21 | Emergency (ER) | payer BC, OTHER ==
[2022-03-11 23:28] VITALS: BP 158/90; PULSE 87; RESP 18; TEMP 99.2
== END 2022-03-12 01:19 | disposition home or self-care (01) ==
LOC: FER 23:21
DX: J06.9 Acute upper respiratory infection, unspecified (principal)
CPT/HCPCS: 0241U-QW; 71045-TC-FY; 99284-25

== ENCOUNTER 2022-11-11 05:18 | Day surgery (SDC) | payer OTHER, BC ==
[2022-11-09 16:50] VITALS: BMI 31.1
[2022-11-11] MEDS ORDERED: MIDAZOLAM HCL 2 MG/2 ML SINGLE DOSE VIAL ONE (13:31)
[2022-11-11] MEDS ORDERED: ceFAZolin 2 GRAM PREMIX BAG IVPB ONE (13:48)
[2022-11-11] MEDS ORDERED: PROPOFOL 40 ML ONE (14:06)
[2022-11-11] MEDS ORDERED: DEXTROSE 5%-0.45% SALINE 1,000 ML IV SCH (14:15)
[2022-11-11 15:20] VITALS: RESP 18
[2022-11-11 16:30] VITALS: BP 155/71; PULSE 65; TEMP 97.7
== END 2022-11-11 16:20 | disposition home or self-care (01) ==
LOC: JASU-SURG 05:18
PROVIDERS: ATTEND Urology
PROC: 0TVD8ZZ Restriction of Urethra, Via Natural or Artificial Opening Endoscopic (ICD-10-PCS; principal; 2022-11-11 13:30)
DX: N36.42 Intrinsic sphincter deficiency (ISD) (principal)
CPT/HCPCS: 51715; L8606; 94760; C1713

== ENCOUNTER 2022-12-11 20:05 | Emergency (ER) | payer BC, OTHER ==
[2022-12-11 20:42] VITALS: BP 158/75; PULSE 78; RESP 16; TEMP 97.6
[2022-12-11] MEDS ORDERED: CLINDAMYCIN HCL 300 MG CAPSULE PO ONE (22:33)
[2022-12-11] MEDS ORDERED: ACETAMINOPHEN 325 MG TABLET (FP) PO ONE (22:34)
[2022-12-11] MEDS ORDERED: ACETAMINOPHEN 325 MG TABLET (FP) ONE (22:38)
[2022-12-11] MEDS ORDERED: CLINDAMYCIN HCL 150 MG CAPSULE (FP) ONE (22:38)
== END 2022-12-11 22:42 | disposition home or self-care (01) ==
LOC: FER 20:05
PROC: 0H9FXZZ Drainage of Right Hand Skin, External Approach (ICD-10-PCS; principal; 2022-12-11)
DX: L03.011 Cellulitis of right finger (principal)
CPT/HCPCS: 87070; 87186; 87205; 99282-25

== ENCOUNTER 2023-01-15 09:32 | Emergency (ER) | payer OTHER ==
[2023-01-15] MEDS ORDERED: SODIUM CHLORIDE 0.9% 500 ML INFUS.BAG IV ONE (10:03)
[2023-01-15] MEDS ORDERED: ACETAMINOPHEN 1000 MG/100 ML BAG IVPB ONE (10:03)
[2023-01-15 10:06] VITALS: BMI 31.2
[2023-01-15] MEDS ORDERED: ACETAMINOPHEN INJECTION 100 ML IVPB ONE (10:09)
[2023-01-15 10:53] LABS: BASO % 0.6 % (0-2.0); EOS % 2.6 % (0-4.5); HEMATOCRIT 41.9 % (32.4-45.2); HEMOGLOBIN 14.2 GM/dL (10.7-15.3); LYMPH % 19.2 % (8-40); MCH 29.4 pg (25.7-33.7); MEAN CELL VOLUME 86.5 fl (80-96); MEAN PLT VOLUME 8.5 fl (7.5-11.1); MONO % 8.1 % (3.8-10.2); NEUT % 69.5 % (42.8-82.8); PLATELET COUNT 220 10^3/uL (134-434); RBC 4.84 M/mm3 (3.60-5.2); RDW 13.4 % (11.6-15.6); WHITE BLOOD COUNT 7.7 K/mm3 (4.0-10.0)
[2023-01-15 11:22] LABS: POTASSIUM 3.8 mmol/L (3.5-5.1)
[2023-01-15 11:24] LABS: ALBUMIN 3.5 g/dl (3.4-5.0); CALCIUM 8.5 mg/dL (8.5-10.1)
[2023-01-15 11:25] LABS: BLOOD UREA NITROGEN 13.7 mg/dL (7-18); MAGNESIUM 2.1 mg/dL (1.8-2.4)
[2023-01-15 11:27] LABS: CREATININE 0.5 mg/dL (0.55-1.3); PHOSPHOROUS 3.2 mg/dL (2.5-4.9)
[2023-01-15 11:29] LABS: BILIRUBIN,TOTAL 0.4 mg/dL (0.2-1); TOT PROT 6.9 g/dl (6.4-8.2)
[2023-01-15 12:35] LABS: PH,URINE 7.5 (5.0-8.0); URINE APPEARANCE CLEAR; URINE BILIRUBIN NEGATIVE (NEGATIVE); URINE COLOR YELLOW; URINE GLUCOSE (UA) NEGATIVE (NEGATIVE); URINE KETONE NEGATIVE (NEGATIVE); URINE LEUK ESTERASE NEGATIVE (NEGATIVE); URINE NITRITE NEGATIVE (NEGATIVE); URINE PROTEIN NEGATIVE (NEGATIVE); URINE UROBILINOGEN 0.2 mg/dL (0.2-1.0)
[2023-01-15 14:36] VITALS: BP 144/78; PULSE 76; RESP 19; TEMP 97.9
== END 2023-01-15 14:36 | disposition home or self-care (01) ==
LOC: JER 09:32
PROC: 3E033NZ Introduction of Analgesics, Hypnotics, Sedatives into Peripheral Vein, Percutaneous Approach (ICD-10-PCS; principal; 2023-01-15)
DX: R55 Syncope and collapse (principal); R10.31 Right lower quadrant pain; R42 Dizziness and giddiness
CPT/HCPCS: 36415; 80053; 81003; 83605; 83735; 84100; 84484; 85025; 87086; 93005; 93010; 99284-25

== ENCOUNTER 2023-08-05 05:07 | Day surgery (SDC) | payer OTHER, BC ==
[2023-08-05] MEDS: BUPIVACAINE HCL/PF 0.75% 10 ML VIAL NR ONE (10:03)
[2023-08-05] MEDS: LIDOCAINE HCL 1% PRESERVATIVE FREE - 30ML VIAL IJ ONE (10:03)
[2023-08-05 10:34] VITALS: BP 154/78; PULSE 65; RESP 20; TEMP 97.8
[2023-08-05] MEDS ORDERED: ACETAMINOPHEN 500 MG TABLET (FP) ONE (10:51)
[2023-08-05] MEDS: ACETAMINOPHEN 500 MG TABLET (FP) PO PRN (10:55)
== END 2023-08-05 11:30 | disposition home or self-care (01) ==
LOC: JASU-SURG 05:07
PROVIDERS: ATTEND Pain Medicine Pain Medicine
PROC: 3E0T33Z Introduction of Anti-inflammatory into Peripheral Nerves and Plexi, Percutaneous Approach (ICD-10-PCS; 2023-08-05)
PROC: 3E0T3BZ Introduction of Anesthetic Agent into Peripheral Nerves and Plexi, Percutaneous Approach (ICD-10-PCS; principal; 2023-08-05 10:15)
DX: M47.816 Spondylosis without myelopathy or radiculopathy, lumbar region (principal)
CPT/HCPCS: 76000-TC-FY

== ENCOUNTER 2023-08-26 04:17 | Day surgery (SDC) | payer BC, OTHER ==
[2023-08-26] MEDS: LIDOCAINE HCL 1% PRESERVATIVE FREE - 30ML VIAL IJ ONE
[2023-08-26] MEDS: BUPIVACAINE HCL/PF 0.75% 10 ML VIAL NR ONE
[2023-08-26] MEDS ORDERED: BUPIVACAINE HCL/PF 0.75% 10 ML VIAL ONE (07:13)
[2023-08-26] MEDS ORDERED: LIDOCAINE HCL/PF 1% SDV 5ML VIAL ONE (07:13)
[2023-08-26 08:59] VITALS: RESP 18
[2023-08-26] MEDS ORDERED: ACETAMINOPHEN 500 MG TABLET (FP) ONE (11:45)
[2023-08-26] MEDS: ACETAMINOPHEN 500 MG TABLET (FP) PO PRN (11:45)
[2023-08-26 13:43] VITALS: BP 145/64; PULSE 60; TEMP 97.9
== END 2023-08-26 12:45 | disposition home or self-care (01) ==
LOC: JASU-SURG 04:17
PROVIDERS: ATTEND Pain Medicine Pain Medicine
PROC: 3E0T33Z Introduction of Anti-inflammatory into Peripheral Nerves and Plexi, Percutaneous Approach (ICD-10-PCS; 2023-08-26)
PROC: 3E0T3BZ Introduction of Anesthetic Agent into Peripheral Nerves and Plexi, Percutaneous Approach (ICD-10-PCS; principal; 2023-08-26 14:30)
DX: M47.816 Spondylosis without myelopathy or radiculopathy, lumbar region (principal)
CPT/HCPCS: 76000-TC-FY

== ENCOUNTER 2025-01-18 13:38 | Emergency (ER) | payer OTHER ==
[2025-01-18 13:51] VITALS: PULSE 68; RESP 18; TEMP 97.8; BMI 33.0
[2025-01-18] MEDS ORDERED: ACETAMINOPHEN INJECTION 100 ML ONE (14:26)
[2025-01-18] MEDS ORDERED: ONDANSETRON 4 MG/2 ML VIAL ONE (14:26)
[2025-01-18 14:43] LABS: ABSOLUTE IMMATURE GRANULOCYTES 0.03 x10^3/uL (0.0-0.031); BASOPHILS # 0.04 x10^3/uL (0.01-0.08); EOSINOPHIL % 3.8 % (0.7-5.8); EOSINOPHILS # 0.29 x10^3/uL (0.04-0.36); INR 1.03 (0.83-1.09); MCHC 32.2 g/dl (32.2-35.5); MEAN CELL VOLUME 89.5 fl (79.4-94.8); MEAN PLT VOLUME 9.8 fl (9.4-12.3); MONOCYTE # 0.79 x10^3/uL (0.24-0.86); MONOCYTE % 10.3 % (4.7-12.5); PROTHROMBIN TIME (PATIENT) 11.4 SEC (9.7-13.0); RDW 12.8 % (12.4-16.4)
[2025-01-18 14:45] LABS: ACTIVATED PTT 30.6 SECONDS (25.2-36.5)
[2025-01-18] MEDS: LACTATED RINGERS SOLUTION 1000 ML INFUS.BAG IV ONE (14:45)
[2025-01-18] MEDS: ONDANSETRON 4 MG/2 ML VIAL IVPUSH ONE (14:50)
[2025-01-18 14:52] LABS: ALK PHOS 96.0 U/L (45-117); CO2 28.0 mmol/L (21-32); CREATININE 0.8 mg/dl (0.6-1.3); GLUCOSE,RANDOM 91.0 mg/dl (74-106); SGOT/AST 15.0 U/L (15-37); SGPT/ALT 13.0 U/L (7-52); TOT PROT 6.6 g/dl (6.4-8.2)
[2025-01-18] MEDS: ACETAMINOPHEN 1000 MG/100 ML BAG IVPB ONE (14:56)
[2025-01-18 16:03] LABS: HIV INTERPRETATION NEGATIVE (NEGATIVE)
[2025-01-18 16:04] LABS: HCV DIAGNOSTIC IN-HOUSE W/RFLX NON-REACTIVE (NONREACTIVE)
[2025-01-18 16:24] VITALS: BP 132/86
== END 2025-01-18 16:15 | disposition home or self-care (01) ==
LOC: FER 13:38
PROC: 3E033NZ Introduction of Analgesics, Hypnotics, Sedatives into Peripheral Vein, Percutaneous Approach (ICD-10-PCS; principal; 2025-01-18)
PROC: 3E033GC Introduction of Other Therapeutic Substance into Peripheral Vein, Percutaneous Approach (ICD-10-PCS; 2025-01-18)
DX: R19.7 Diarrhea, unspecified (principal); R11.0 Nausea; R10.31 Right lower quadrant pain; R10.32 Left lower quadrant pain; R10.33 Periumbilical pain
CPT/HCPCS: 36415; 74177-TC; 80053; 81003; 83605; 83690; 85025; 85610; 85730; 86140; 86803; 86850; 86900; 86901; 87086; 87389; 99285-25; Q9967